=== PATIENT | female | born 1965 | race Caucasian/White ===

== ENCOUNTER 2020-12-22 15:49 | Outpatient (REF) | payer OTHER, SELFPAY ==
--- NOTE | ~2020-12-22 | US_ITS ---
EXAMINATION: US THYROID CLINICAL INFORMATION: Nontoxic multinodular goiter. COMPARISON: Thyroid ultrasound 09/03/2018 and 06/27/2016. TECHNIQUE: Linear transducer grayscale and color Doppler examination with attention to the region of the thyroid. FINDINGS: SIZE: Measurements of the thyroid lobes and nodules are given in sagittal, anteroposterior and transverse dimensions respectively. Right Thyroid Lobe: Surgically absent. Left Thyroid Lobe: 4.0 x 1.8 x 1.9 cm, volume 7.2 mL. Previously 4.2 x 2.0 x 1.9 cm, volume 8.3 mL. Parenchyma: The gland echotexture is heterogeneous. Thyroid vascularity is increased. Isthmus: 0.3 cm in maximum AP dimension. Previously 0.2 cm. There are multiple left nodules. Estimated total number of nodules greater than or equal to 1 cm: 4. Clerical Transcriber nodules are described as follows: 1. Location: Left upper pole. Size: 1.0 x 0.6 x 0.9 cm, volume 0.28 mL. Previously: 0.8 x 0.5 x 0.9 cm, volume 0.19 mL. Nodule characteristics: Composition: Solid (2). Echogenicity: Hypoechoic (2). Shape: Not taller than wide (0). Margins: Smooth (0). Echogenic Foci: None (0). ACR TI-RADS total points: 4 Previous: N/A ACR TI-RADS category: 4 Previous: N/A Significant change in size (>/= 20% in 2 dimensions and minimal increase of 2 mm or 50% or greater increase in volume): Change in features: Change in ACR TI-RADS risk category: N/A 2. Location: Left upper pole. Size: 1.0 x 0.6 x 0.8 cm, volume 0.24 mL. Previously: 0.9 x 0.7 x 0.9 cm, volume 0.30 mL. Nodule characteristics: Composition: Solid (2). Echogenicity: Very hypoechoic (3). Shape: Not taller than wide (0). Margins: Smooth (0). Echogenic Foci: None (0). ACR TI-RADS total points: 5 Previous: N/A ACR TI-RADS category: 4 Previous: N/A Significant change in size (>/= 20% in 2 dimensions and minimal increase of 2 mm or 50% or greater increase in volume): Change in features: Change in ACR TI-RADS risk category: N/A 3. Location: Left mid/posterior. Size: 0.7 x 0.6 x 0.7 cm, volume 0.15 mL. Previously: Not documented, new. Question nodule versus area of gland heterogeneity. Nodule characteristics: Composition: Solid (2). Echogenicity: Isoechoic (1). Shape: Not taller than wide (0). Margins: Smooth (0). Echogenic Foci: None (0). ACR TI-RADS total points: 3 Previous: N/A ACR TI-RADS category: 3 Previous: N/A Significant change in size (>/= 20% in 2 dimensions and minimal increase of 2 mm or 50% or greater increase in volume): Change in features: Change in ACR TI-RADS risk category: N/A 4. Location: Left lower pole. Size: 1.2 x 0.6 x 0.9 cm, volume 0.37 mL. Previously: 1.3 x 0.7 x 0.9 cm, volume 0.43 mL. Nodule characteristics: Composition: Solid (2). Echogenicity: Very hypoechoic (3). Shape: Not taller than wide (0). Margins: Extrathyroidal extension (3). Echogenic Foci: None (0). ACR TI-RADS total points: 8 Previous: N/A ACR TI-RADS category: 5 Previous: N/A Significant change in size (>/= 20% in 2 dimensions and minimal increase of 2 mm or 50% or greater increase in volume): Change in features: Change in ACR TI-RADS risk category: N/A 5. Location: Left lower pole. Size: 1.0 x 0.6 x 0.7 cm, volume 0.24 mL. Previously: Not documented, new. Question nodule versus area of gland heterogeneity. Nodule characteristics: Composition: Solid (2). Echogenicity: Isoechoic (1). Shape: Not taller than wide (0). Margins: Smooth (0). Echogenic Foci: None (0). ACR TI-RADS total points: 3 Previous: N/A ACR TI-RADS category: 3 Previous: N/A Significant change in size (>/= 20% in 2 dimensions and minimal increase of 2 mm or 50% or greater increase in volume): Change in features: Change in ACR TI-RADS risk category: N/A RIGHT THYROIDECTOMY BED: No residual thyroid tissue seen. NODES: No lymphadenopathy is seen in the tissue surrounding the thyroid gland. US/US thyroid IMPRESSION: Heterogeneous hypervascular left lobe with multiple left nodules. There are 2 question newly appreciated nodules versus areas of gland heterogeneity. ACR TI-RADS RECOMMENDATION REFERENCE: Ultrasound-guided fine-needle aspiration, followup ultrasound, no further follow up. * TR1 (0 point) and TR 2 (2 points): No FNA or follow up * TR3 (3 points): FNA if more than or equal to 2.5 cm in maximum dimension, followup ultrasound in 1, 3 and 5 years if 1.5 to 2.4 cm in maximum dimension. * TR4 (4-6 points): FNA if more than or equal to 1.5 cm in maximum dimension, followup ultrasound in 1, 2, 3 and 5 years if 1 to 1.4 cm in maximum dimension. * TR5 (more than or equal to 7 points): FNA if more than or equal to 1 cm in maximum dimension, followup ultrasound every year for 5 years if 0.5 to 0.9 cm in maximum dimension. * TR3, TR4 or TR5 nodules that are below the size threshold for follow up receive no follow up.
== END 2020-12-22 15:50 | disposition home or self-care (01) ==
LOC: HO.HMGCX 15:49
PROVIDERS: PCP Internal Medicine; Visit Provider Internal Medicine Endocrinology, Diabetes & Metabolism
DX: E04.2 Nontoxic multinodular goiter (principal)
CPT/HCPCS: 76536

== ENCOUNTER 2021-11-07 06:15 | Outpatient (REF) | payer OTHER, SELFPAY ==
[2021-11-07 06:33] LABS: MANUAL DIFF FLAG NO
[2021-11-07 07:26] LABS: Basophils Percent Auto 0.9 % (0-2); Eosinophils Absolute Auto 0.1 X10*3/uL (0.0-0.4); Eosinophils Percent Auto 1.8 % (0-4); Hematocrit 41.9 % (37.0-47.0); Imm Gran Abs Auto 0.01 X10*3/uL (0.00-0.03); Imm Gran Pct Auto 0.2 % (0.0-0.4); Lymphocytes Absolute Auto 1.5 X10*3/uL (1.2-4.9); Lymphocytes Percent Auto 33.1 % (20-40); Mean Corpuscular HGB Conc 33.4 g/dl (31.0-35.0); Mean Corpuscular Hemoglobin 31.9 pg (27.0-33.0); Mean Corpuscular Volume 95.4 fL (80.0-98.0); Mean Platelet Volume 8.9 fL (9.4-12.3); Monocytes Absolute Auto 0.5 X10*3/uL (0.1-1.2); Monocytes Percent Auto 10.3 % (2-11); Neutrophils Absolute Auto 2.4 x10*3/uL (2.0-8.3); Neutrophils Percent Auto 53.7 % (45-73); Platelet Count 434 X10*3/uL (160-400); Red Blood Count 4.39 X10*6/uL (4.20-5.50); Red Cell Distribution Width 12.9 % (11.0-16.0); White Blood Count 4.4 X10*3/uL (4.8-10.8)
[2021-11-07 07:50] LABS: Alanine Aminotransferase 18 U/L (0-31); Albumin Level 4.4 g/dL (3.5-5.0); Alkaline Phosphatase 101 U/L (39-117); Anion Gap 17 (12-20); Aspartate Amino Transferase 20 U/L (5-31); Bilirubin Total 0.7 mg/dL (0.0-1.0); Blood Urea Nitrogen 11 mg/dL (9-16); Calcium 9.9 mg/dL (8.4-10.2); Carbon Dioxide 27 mmol/L (22-29); Chloride 102 mmol/L (96-108); Cholesterol 242 mg/dL; Estimated Glomerular Filt Rate > 60; Glucose Random 101 mg/dL (60-115); HDL Cholesterol 78 mg/dL; LDL Cholesterol Calculated 143 mg/dl; Potassium 4.9 mmol/L (3.3-5.1); Sodium 141 mmol/L (135-145); Total Protein 7.8 g/dL (6.5-8.0); Triglycerides 107 mg/dL
[2021-11-07 08:16] LABS: Free T4 (Free Thyroxine) 0.82 ng/dL (0.71-1.85); Thyroid Stimulating Hormone 3.47 uIU/mL (0.32-4.0); Vitamin D 25-OH Total 48.9 ng/mL (>30)
[2021-11-07 08:18] LABS: Folate 19.5 ng/mL (> or = 4.0); Vitamin B12 313 pg/mL (200-900)
== END 2021-11-07 06:16 | disposition home or self-care (01) ==
LOC: HO.LAB 06:15
PROVIDERS: Absent Provider Internal Medicine Endocrinology, Diabetes & Metabolism; PCP Internal Medicine; Visit Provider Internal Medicine
DX: E04.2 Nontoxic multinodular goiter (principal); E78.00 Pure hypercholesterolemia, unspecified; D75.839 Thrombocytosis, unspecified
CPT/HCPCS: 36415; 80053; 80061; 82306; 82607; 82746; 84439; 84443; 85025

== ENCOUNTER 2022-05-09 13:56 | Outpatient (REF) | payer OTHER, SELFPAY ==
[2022-05-09 14:52] LABS: Influenza A PCR NEGATIVE (Negative); Influenza B PCR NEGATIVE (Negative); Resp Syncy Virus RNA Qual PCR NEGATIVE (Negative); SARS COV2 PCR INHOUSE NEGATIVE (Negative)
== END 2022-05-09 13:57 | disposition home or self-care (01) ==
LOC: HO.LNP 13:56
PROVIDERS: Visit Provider Internal Medicine
DX: Z20.822 Contact with and (suspected) exposure to COVID-19 (principal); R09.89 Other specified symptoms and signs involving the circulatory and respiratory systems
CPT/HCPCS: 0241U

== ENCOUNTER 2022-11-08 06:57 | Outpatient (REF) | payer OTHER, SELFPAY ==
[2022-11-08 07:10] LABS: MANUAL DIFF FLAG NO
[2022-11-08 07:40] LABS: Basophils Absolute Auto 0.1 X10*3/uL (0.0-0.2); Eosinophils Absolute Auto 0.2 X10*3/uL (0.0-0.4); Hematocrit 41.3 % (37.0-47.0); Hemoglobin 13.8 g/dl (12.0-16.0); Imm Gran Abs Auto 0.01 X10*3/uL (0.00-0.03); Imm Gran Pct Auto 0.2 % (0.0-0.4); Lymphocytes Absolute Auto 1.8 X10*3/uL (1.2-4.9); Lymphocytes Percent Auto 35.8 % (20-40); Mean Corpuscular HGB Conc 33.4 g/dl (31.0-35.0); Mean Corpuscular Hemoglobin 31.6 pg (27.0-33.0); Mean Corpuscular Volume 94.5 fL (80.0-98.0); Mean Platelet Volume 8.4 fL (9.4-12.3); Monocytes Absolute Auto 0.5 X10*3/uL (0.1-1.2); Monocytes Percent Auto 9.9 % (2-11); Neutrophils Absolute Auto 2.5 x10*3/uL (2.0-8.3); Neutrophils Percent Auto 50.1 % (45-73); Platelet Count 417 X10*3/uL (160-400); Red Blood Count 4.37 X10*6/uL (4.20-5.50); Red Cell Distribution Width 12.4 % (11.0-16.0)
[2022-11-08 08:03] LABS: Alanine Aminotransferase 23 U/L (0-31); Albumin Level 4.3 g/dL (3.5-5.0); Alkaline Phosphatase 105 U/L (39-117); Anion Gap 13 (12-20); Aspartate Amino Transferase 24 U/L (5-31); Bilirubin Total 0.5 mg/dL (0.0-1.0); Blood Urea Nitrogen 11 mg/dL (9-16); Calcium 10.2 mg/dL (8.4-10.2); Carbon Dioxide 28 mmol/L (22-29); Chloride 103 mmol/L (96-108); Cholesterol 217 mg/dL; Estimated Glomerular Filt Rate > 60; Glucose Random 97 mg/dL (60-115); HDL Cholesterol 68 mg/dL; LDL Cholesterol Calculated 127 mg/dl; Potassium 4.4 mmol/L (3.3-5.1); Sodium 140 mmol/L (135-145); Total Protein 7.9 g/dL (6.5-8.0); Triglycerides 113 mg/dL
[2022-11-08 08:25] LABS: Free T4 (Free Thyroxine) 0.85 ng/dL (0.71-1.85); Thyroid Stimulating Hormone 3.62 uIU/mL (0.32-4.0); Vitamin D 25-OH Total 72.4 ng/mL (>30)
[2022-11-08 08:35] LABS: Folate 14.6 ng/mL (> or = 4.0); Vitamin B12 525 pg/mL (200-900)
== END 2022-11-08 06:58 | disposition home or self-care (01) ==
LOC: HO.LAB 06:57
PROVIDERS: PCP Internal Medicine; Visit Provider Internal Medicine
DX: E78.00 Pure hypercholesterolemia, unspecified (principal); E55.9 Vitamin D deficiency, unspecified
CPT/HCPCS: 36415; 80053; 80061; 82306; 82607; 82746; 84439; 84443; 85025

== ENCOUNTER 2022-11-09 17:03 | Emergency (ER) | payer OTHER, SELFPAY ==
--- NOTE | ~2022-11-09 | CT_ITS ---
EXAMINATION: CT KNEE WITHOUT CONTRAST, LEFT CLINICAL INFORMATION: Fracture COMPARISON: Same day radiographs TECHNIQUE: A noncontrast CT of the left knee is performed with sagittal and coronal reformats. This CT examination was performed using dose optimization techniques as appropriate, variously including the following: *Automated exposure control *Adjustment of mA and/or kV according to patient size (this includes techniques or standardized protocols for targeted exams where dose is matched to indication/reason for exam; i.e. extremities or head) *Use of iterative reconstruction technique Dose Length Product: 215 mGycm. FINDINGS: There is a comminuted, impacted fracture involving the lateral tibial plateau most prominent posteriorly where there is up to 8 mm of surface depression, downsloping posteriorly. The fracture line extends along the subchondral bone at the tibiofibular joint. Several fracture lines extend to the tibial spines, a minimally displaced fracture in the coronal plane extending along the articular surface of the medial tibial plateau. This fracture line extends obliquely to the posterior cortex of the metadiaphysis. A portion of the tibial spines anteriorly is slightly retracted, likely by the ACL footprint. There is a large lipohemarthrosis. No fracture of the distal femur or patella is evident. CT/CT knee LT wo IV con IMPRESSION: 1. Comminuted, impacted fracture of the lateral tibial plateau with up to 8 mm of surface depression. Fracture lines cross midline. 2. Minimally displaced fracture of the medial tibial plateau extending to the posterior cortex of the metadiaphysis. 3. Large lipohemarthrosis.
--- NOTE | ~2022-11-09 | XR_ITS ---
EXAMINATION: XR KNEE, LEFT CLINICAL INFORMATION: Fall, pain. COMPARISON: None available. TECHNIQUE: Four views of the left knee. FINDINGS: Comminuted tibial plateau fracture with intra-articular extension. Mild impaction and posterior displacement of some of the fracture fragments. Moderate to large lipo-hemarthrosis. XR/XR knee LT 4V IMPRESSION: Comminuted tibial plateau fracture with intra-articular extension.
[2022-11-09 17:11] VITALS: BP 152/92; BP 160/79; PULSE 85; PULSE 95; RESP 16; TEMP 36.8; O2SAT 95; O2SAT 98; BMI 29.0
[2022-11-09 17:15] VITALS: PULSE 86
--- NOTE | 2022-11-09 17:21 | PC.NURSE ---
pt a&ox3. respirations even and unlabored. pt reports falling off of porch about 6 feet up onto her knees. pt was chasing cat that ran out of her house. the pt is getting her porch worked on. pt reports left knee pain. left knee has visible bruising and swelling. pt is able to bend knee but struggles to bend it back out. pt denies pain in right knee. pt denies loc. pt is not on blood thinners. pt denies n/v and chest pain. vss.
--- NOTE | 2022-11-09 17:36 | ED_ITS ---
HPI - Fall General Chief Complaint: Fall Stated Complaint: FALL OFF PORCH Time Seen by Provider: 11/09/22 17:11 Source: patient, family and EMS Mode of arrival: EMS Limitations: no limitations History of Present Illness HPI Narrative: 57-year-old female came in for evaluation of left knee pain after fell off a 4 ft height porch as the patient jumping of the porch landed in her both feet and her left knee gave out causing her to fall on her left knee, patient is complaining of left knee pain. No headache, no neck pain upper extremities weakness of her tenderness, no back pain, no abdominal pain, no pelvic pain, no hips pain or deformity, no right lower extremities pain or deformity. Only complaint is left knee pain and unable to bear weight the left knee. Related Data Home Medications Medication Instructions Recorded Confirmed cholecalciferol (vitamin D3) 25 25 mcg PO DAILY 05/17/21 05/23/22 mcg (1,000 unit) capsule letrozole 2.5 mg tablet 2.5 mg PO DAILY 05/17/21 05/23/22 loratadine 10 mg tablet 10 mg PO DAILY 05/17/21 05/23/22 multivitamin 1 tab PO DAILY 05/23/22 05/23/22 Allergies Allergy/AdvReac Type Severity Reaction Status Date / Time lactose Allergy Intermediate upset Verified 05/23/22 12:29 stomach Review of Systems Review of Systems: All other systems are reviewed and are negative Constitutional: Reports as per HPI and Reports no additional constitutional complaints Eyes: Reports as per HPI and Reports no additional eye complaints Reports system reviewed and no additional complaints, except as documented Cardiovascular: Reports as per HPI and Reports no additional cardiovascular complaints Respiratory: Reports as per HPI and Reports no additional respiratory complaints Gastrointestinal: Reports as per HPI and Reports no additional gastrointestinal complaints Genitourinary: Reports no additional female genitourinary complaints Musculoskeletal: Reports no additional musculoskeletal complaints Skin/Breast: Reports system reviewed and no additional complaints, except as docu Psychiatric: Reports no additional psychiatric complaints Endocrine: Reports no additional endocrine complaints Hematologic/Lymphatic: Reports no additional hematologic/lymphatic complaints Allergic/Immunologic: Reports no additional allergic/immunologic complaints Reports system reviewed and no additional complaints, except as documented and Reports Abnormal speech present [facility] Past Medical History Medical History Deviated septum History of breast cancer Multinodular goiter Raynaud's disease Surgical History H/O lumpectomy History of thyroidectomy, subtotal Family History Family History Father Heart attack Sister CAD (coronary artery disease) Leukemia Brother Substance abuse Sister Breast cancer Social History Social History Housing: House Alcohol intake: current Alcohol intake frequency: a few times a month Patient Tobacco Use Status: Never used Tobacco Smoked in Last 30 Days: No e-Cigarette/Vaping Use: Never Used Second Hand Smoke Exposure: No Use of substances other than those prescribed or required for medical reasons: No Advance Directives: No Advance Directives Information Provided: Yes Current occupational status: employed Cognitive needs: No Hearing needs: No Vision needs: Yes Physical Exam Vital Signs: Vital Signs: Last Vital Signs Temp 98.3 F 11/09/22 17:11 Pulse 86 11/09/22 17:15 Resp 16 11/09/22 17:11 BP 160/79 H 11/09/22 17:11 Pulse Ox 98 11/09/22 17:11 O2 Del Method Room Air 11/09/22 17:11 BMI result Body Mass Index 29.0 Vital signs have been reviewed as appeared to be correct. Blood pressure normal. Heart rate normal. Respiration rate normal. Temperature normal. Oxygen saturation normal. Appearance: Alert. Oriented X3. No acute distress. Head: Normal external exam. Normocephalic. Atraumatic. No Claudio signs noted. No raccoon eyes noted Eyes: PERRLA. EOMI. Conjunctiva and sclera normal. Eyelids normal. ENT: TM's Normal. Pharynx normal. Uvula midline. Moist mucous membranes. No trismus noted. No drooling noted. No muffled voice noted. Neck: Normal inspection. Neck supple. FROM. No adenopathy. Thyroid Normal. No meningeal signs. No neck mass noted. CVS: Normal heart rate and rhythm. Heart sound normal. No murmurs noted. Pulses normal throughout. Respiratory: No respiratory distress. Painless inspiration. Breath sounds normal. No wheezes/rales/rhonchi noted. Chest nontender. No accessory muscle usage noted or decreased air movement noted. Abdomen: Soft and nontender. Bowel sounds normal in all 4 quadrants. No distention noted. No organomegaly noted. No visible injury noted. Back: No CVA tenderness. Full range of motion noted. Skin: Skin warm and dry. Normal skin color. Normal skin turgor. No rashes/lesions/lacerations noted. Extremities: Left knee exam: Mild diffuse joint swelling with effusion, limited range of motion due to pain, area of ecchymosis on anterior aspect of left knee with no deformity, popliteal artery is intact, left PT/DP is intact. Neuro: Oriented X 3. Cranial nerve exam: II-XII are grossly intact No motor deficit. No sensory deficit. Reflexes normal. Course Course Course Narrative: Left tibial plateau fracture. Knee immobilizer, no weight bearing using crutches, use NSAIDs for pain, follow- up with Orthopedic. Medical Decision Making Differential Diagnosis Differential Diagnoses: The differential diagnosis associated with the presentation includes (Left tibial fracture, knee fracture, knee dislocation, other long bone fracture.) Admission/Observation Consideration of admission/observation: Escalation of care including admission/observation considered Consult Healthcare Provider Management of the patient was discussed with: Optometric Assistant (Ruel Lopez (orthopedic [facility]).) Independent Interpretation I performed an independent interpretation of an: Plain X-Ray (Left tibial plateau fracture.) and CT Scan (1. Comminuted, impacted fracture of the lateral tibial plateau with up to 8 mm of surface depression. Fracture lines cross midline. 2. Minimally displaced fracture of the medial tibial plateau extending to the posterior cortex of the metadiaphysis. 3. Large lipohemarthrosis. ) Radiology Impression Discussion of test interpretation with radiology: I have reviewed the radiologist's reading. ( 1. Comminuted, impacted fracture of the lateral tibial plateau with up to 8 mm of surface depression. Fracture lines cross midline. 2. Minimally displaced fracture of the medial tibial plateau extending to the posterior cortex of the metadiaphysis. 3. Large lipohemarthrosis. ) Discharge Plan Discharge Clinical Impression: Left medial tibial plateau fracture Patient Disposition: Home, Self-Care Additional Instructions: Keep the knee immobilizer at all times. Use ibuprofen 200 mg tablet or/and Tylenol 500 mg tablet every 6 hours if needed for pain. Use the crutches and on try to bear weight on the left leg. Call the orthopedic office and make an appointment. Prescriptions: No Action letrozole 2.5 mg tablet 2.5 mg PO DAILY loratadine 10 mg tablet 10 mg PO DAILY cholecalciferol (vitamin D3) 25 mcg (1,000 unit) capsule 25 mcg PO DAILY multivitamin Tablet 1 tab PO DAILY Referrals: Erwin Chin MD [Physician] - Harley,Capri Somers MD [Primary Care Provider] - Stand Alone Forms: Work/School Release
--- NOTE | 2022-11-09 20:09 | PC.NURSE ---
knee immobilizer applied to left knee, crutches training provided. pt assisted to car for discharge.
--- NOTE | 2022-11-09 20:17 | PC.NURSE ---
pt's shoes found in room after discharge. pt notified, shoes at charge desk.
== END 2022-11-09 20:11 | disposition home or self-care (01) ==
PROVIDERS: Emergency Provider Emergency Medicine; PCP Internal Medicine
DX: S82.142A Displaced bicondylar fracture of left tibia, initial encounter for closed fracture (principal); W19.XXXA Unspecified fall, initial encounter; Y93.9 Activity, unspecified; Y92.9 Unspecified place or not applicable; Y99.9 Unspecified external cause status; M25.562 Pain in left knee
CPT/HCPCS: 73564; 73700; 99284

== ENCOUNTER 2022-11-14 12:42 | Outpatient (AMB) | payer OTHER, SELFPAY ==
--- NOTE | 2022-11-14 12:51 | A.OFFVIS_ITS ---
Intake Intake Visit Reasons: FC- Left medial tibial plateau fracture Intake Note: Jo is a 57 year old female who presents today for a fracture care visit for her left knee. On 11/09/22 she jumped off a porch (approx 4ft) and when landing she had pain in the left knee. Allergies lactose Allergy (Intermediate, Verified 05/23/22 12:29) upset stomach HPI FC- Left medial tibial plateau fracture HPI Details 57-year-old female who presents today to the office for a left medial tibial plateau fracture. The patient was seen in the ER after a fall off the four-foot porch. She states that she was jumping off the porch and landed on both feet. Her left knee started to give out, and she had severe pain. She had a paresthesia initially, which eventually resolved. She had an intermittent episode of sharp pain this morning, which is resolved now. She walks about two miles a day. She is currently taking ibuprofen and Tylenol every six hours. She will wean off the ibuprofen to five days a week. She is not using crutches for ambulation. She denies smoking or illicit drug use. She has a history of chemotherapy treatment and 30-day radiation treatment in 2015?16. She is taking vitamin D and calcium supplements for osteopenia. She is not taking fish oil supplements. She is an avid golfer. [facility] Medical History Deviated septum History of breast cancer Multinodular goiter Raynaud's disease Surgical History H/O lumpectomy History of thyroidectomy, subtotal Family History Father Heart attack Sister CAD (coronary artery disease) Leukemia Brother Substance abuse Sister Breast cancer Social History Housing: House Alcohol intake: current Alcohol intake frequency: a few times a month Patient Tobacco Use Status: Never used Tobacco e-Cigarette/Vaping Use: Never Used Second Hand Smoke Exposure: No Current occupational status: employed Cognitive needs: No Hearing needs: No Vision needs: Yes Physical Exam Const General: no acute distress, alert and awake Orientation/consciousness: patient oriented x3 HEENT Head: Yes normocephalic and Yes atraumatic Eyes EOM: EOMs intact bilaterally Resp Effort & Inspection: normal respiratory effort and able to speak in complete sentences Cardio Jugular venous distension: no JVD Skin General skin exam: turgor normal Rashes: no rashes Neuro General: patient oriented x3 Extrem Other: moderate diffuse swelling eft proximal tibia 2+ DP SILT Psych Appearance: grossly normal Affect: normal affect Attitude: cooperative Results Reviewed Results Reviewed: I personally reviewed relevant radiographs. 11/09/22: CT KNEE WITHOUT CONTRAST, LEFT FINDINGS: There is a comminuted, impacted fracture involving the lateral tibial plateau most prominent posteriorly where there is up to 8 mm of surface depression, downsloping posteriorly. The fracture line extends along the subchondral bone at the tibiofibular joint. Several fracture lines extend to the tibial spines, a minimally displaced fracture in the coronal plane extending along the articular surface of the medial tibial plateau. This fracture line extends obliquely to the posterior cortex of the metadiaphysis. A portion of the tibial spines anteriorly is slightly retracted, likely by the ACL footprint. There is a large lipohemarthrosis. No fracture of the distal femur or patella is evident. IMPRESSION: 1. Comminuted, impacted fracture of the lateral tibial plateau with up to 8 mm of surface depression. Fracture lines cross midline. 2. Minimally displaced fracture of the medial tibial plateau extending to the posterior cortex of the metadiaphysis. 3. Large lipohemarthrosis. 11/09/22: XR KNEE, LEFT FINDINGS: Comminuted tibial plateau fracture with intra-articular extension. Mild impaction and posterior displacement of some of the fracture fragments. Moderate to large lipo-hemarthrosis. IMPRESSION: Comminuted tibial plateau fracture with intra-articular extension. Assessment & Plan Assessment & Plan (1) Left tibial fracture: Comment: [id number] LT wo IV con IMPRESSION: 1. Comminuted, impacted fracture of the lateral tibial plateau with up to 8 mm of surface depression. Fracture lines cross midline. 2. Minimally displaced fracture of the medial tibial plateau extending to the posterior cortex of the metadiaphysis. 3. Large lipohemarthrosis. Code(s): S82.A - Unspecified fracture of shaft of left tibia, initial encounter for closed fracture Plan: This is a 57-year-old woman with a Schatzker V tibial plateau fracture. She is healthy and ambulatory and I recommend open reduction and internal fixation. I discussed with her the details of surgery including the expected duration of nonweightbearing postoperatively as well as the risks of infection, stiffness, need for further surgery and blood clots and bleeding among others. SHeexpressed understanding and would like to proceed forward accordingly. This Plan Scribed for Dr. Erwin Chin by Isaiah Perry, medical assembler, on 11/14/2022. I, Dr. Erwin Chin, have personally reviewed and agree with the information entered by the scribe. Coding Level of Care Code New Pt Level 4 (51484) Diagnoses Left tibial fracture S82.202A
== END 2022-11-14 14:00 | disposition home or self-care (01) ==
PROVIDERS: PCP Internal Medicine; Visit Provider Orthopaedic Surgery
DX: S82.142A Displaced bicondylar fracture of left tibia, initial encounter for closed fracture (principal)
CPT/HCPCS: 99204

== ENCOUNTER → 2022-11-14 12:42 | Outpatient (BNVA) | payer OTHER, SELFPAY | PROVIDERS: PCP Internal Medicine; Visit Provider Orthopaedic Surgery ==

== ENCOUNTER 2022-11-19 | Day surgery (SDC) | payer OTHER, SELFPAY ==
[2022-11-19] VITALS (8 sets, daily range): BP systolic 131–155; BP diastolic 67–85; PULSE 90–114; RESP 15–18; TEMP 36.1–37.8; O2SAT 97–100; BMI 29.0
--- NOTE | ~2022-11-19 | FL_ITS ---
EXAMINATION: XR FLUOROSCOPY WITH IMAGES CLINICAL INFORMATION: Left tibial plateau fracture. COMPARISON: Previous CT and x-ray of the left knee 11/09/2022 TECHNIQUE: Fluoroscopy Supervised By: Dr. Erwin Chin. Fluoroscopy Time: 1.9 minutes. Cumulative Dose: 12.1 mGy. DAP: 0.211 Gycm2. Images: 8. FINDINGS: Fluoroscopy guidance provided for ORIF of medial and lateral tibial plateau fractures with side plate and screws. There is improved alignment. There is a sclerotic density in the lateral tibial plateau likely representing cement. FL/FL guidance in OR IMPRESSION: Fluoroscopy guidance for ORIF of medial and lateral tibial plateau fractures.
--- OUTSIDE RECORDS SUMMARY | 2022-11-19 11:56 | XMS_ITS | Continuity of Care Document ---
Author Name Unknown Organization [facility] Address [address] [place] [address]- Care Team Providers Care Health Type Technician Name Role Phone Po Capri SANCHEZ Primary Care Phys[place] [facility] [place]/22 [facility] [address] [place] [id number] Allergies, Adverse Reactions, Alerts Substance Reaction Severity Status Milk Products diarrhea Active Immunizations Given and Recorded Vaccine Date Status Refusal Reason influenza virus vaccine, inactivated 1 12/24/18 Gi robbin influenza virus vaccine, inactivated 02/02/17 Refugio rded Afluria (oldterm) 12/27/17 Recorded tetanus/diphtheria/pertussis, acel(Tdap) 2 05/15/17 Recorded pneumococcal 23-valent vaccine 02/24/15 Given pneumococcal 13-valent vaccine 12/22/14 Given 1Result Comment: Handled getting vaccine well Gave VIS Published 11/12/2018 2Location History: PCP Medications Claritin 10 mg oral tablet 10 mg, 1, tablet, By Mouth, Daily, Refills 0, Maintenance, 12/24/18 8:38:12 EDT Start Date: 12/24/18 Status: Ordered letrozole 2.5 mg oral tablet 1 tablet, By Mouth, Daily, # 90 tablet, 3 Refills, 11/29/21 15:45:00 EDT, [facility]), 159.9, cm, 11/29/21 12:52:00 EDT, Height, 79.4, kg, 11/29/21 12:52:00 EDT, Dry Weight Start Date: 11/29/21 Status: Ordered One cranial prosthesis. One cranial prosthesis., See Instructions, # 1 each, Refills 0, Tot. 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., 12/13/14 15:56:11, Compound Start Date: 12/13/14 Status: Ordered Vitamin D3 1000 intl units oral capsule 1 capsule = 1,000 International_Units, By Mouth, Daily, 0 Refills, Maintenance, 12/18/17 14:28:26 EDT Start Date: 12/18/17 Status: Ordered Problem List Condition Confirmation Course Effective Dates Status Health St atus Informant Breast mass in female Confirmed Active Carcinoma of lower outer quadrant of left breast Confirmed Active Blood pressure elevated without history of HTN Confirmed Active Axillary mass 1 Confirmed Active Obese class I Confirmed Active 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
--- OUTSIDE RECORDS SUMMARY | 2022-11-19 11:57 | XMS_ITS | Continuity of Care Document ---
Author Name Unknown Organization [facility] ancer Care Address [address] [place] [address]- Care Team Providers Care Culturist Name Role Phone Po Capri SANCHEZ Primary Care Physician En[facility] [place] 09/15/20 - 10/15/20 [facility] Care [address] [place] [id number] Allergies, Adverse Reactions, Alerts Substance Reaction Severity [...] Ordered letrozole 2.5 mg oral tablet 1 tablet = 2.5 mg, By Mouth, Daily, # 90 tablet, 3 Refills, Maintenance, 09/13/20 13:10:00 EDT, [facility], Partial fill upon patient request if the prescription is for a schedule II opioiddrug., 159.9, cm, 06/01/20 12:56:00 EST, Height, 76... Start Date: 09/13/20 Status: Ordered One cranial prosthesis. One cranial [...] Date: 12/18/17 Status: Ordered Problem List Condition Effective Dates Status Health Status Inform ant Breast mass in female(Confirmed) Active Carcinoma of lower outer pepe drant of left breast(Confirmed) Active Blood pressure elevated with out history of HTN(Confirmed) Active Axillary mass(Confirmed) 1 Active Primary breast cancer with m etastasis to movable ipsilateral level 1 or 2 axillary lymph nodes (N1)(Confirmed) Active Raynauds syndrome(Confirmed) Active 1Left axilla Social History Social History Type Response Smoking Status Never smoker; Other: Quit 1983; entered on: 08/17/15 Sex
--- OUTSIDE RECORDS SUMMARY | 2022-11-19 11:57 | XMS_ITS | Continuity of Care Document ---
Author Name Unknown Organization [facility] an[facility] Address [address] [place] [address]- Care Team Providers Care Benefit Specialist Name Role Phone Po Capri SANCHEZ Primary Care Physician [phone] En[facility] [place] Date(s): 11/29/21 - 12/29/21 [facility] Care [address] [place] [id number] Allergies, Adverse Reactions, Alerts Substance Reaction Severity [...] Personnel Name: Capri Souza MD Address: Address: [address] [place] [id number]
--- OUTSIDE RECORDS SUMMARY | 2022-11-19 11:57 | XMS_ITS | Continuity of Care Document ---
Author Name Unknown Organization [facility] Care Address [address] [place] [address]- Care Team Providers Care Roll Clamp Operator Name Role Phone Po Capri SANCHEZ Primary Care Physician [phone] En[facility] [place] Date(s): 07/04/21 - 08/03/21 [facility] Care [address] [place] [id number] Allergies, Adverse Reactions, Alerts Substance Reaction Severity [...] Mouth, Daily, # 90 tablet, 3 Refills, [facility], 159.9, cm, 11/30/20 13:17:00 EDT, Height, 76.7, kg, 11/30/20 13:17:00 EDT, Dry Weight Start Date: 06/15/21 Status: Ordered One cranial prosthesis. One cranial [...]
--- OUTSIDE RECORDS SUMMARY | 2022-11-19 11:57 | XMS_ITS | Continuity of Care Document ---
Author Name Unknown Organization [facility] an[facility] Address [address] [place] [address]- Care Team Providers Care Automotive Parts Manager Name Role Phone Po Capri SANCHEZ Primary Care Physician [place] [facility] [place] - 09/29/20 [facility] Care [address] [place] [id number] Allergies, Adverse Reactions, Alerts Substance [...] tablet, 3 Refills, Maintenance, 09/13/20 13:10:00 EDT, [facility] [facility], Partial fill upon patient request [...]
--- OUTSIDE RECORDS SUMMARY | 2022-11-19 11:57 | XMS_ITS | Continuity of Care Document ---
Author Name Unknown Organization [facility] Care Address [address] [place] [address]- Care Team Providers Care Library Manager Name Role Phone Po Capri SANCHEZ Primary Care Physician [place] [facility] [place] 10/03/20 - 11/02/20 [facility] Care [address] [place] [id number] Allergies, Adverse Reactions, Alerts Substance Reaction Severity [...] tablet, 3 Refills, Maintenance, 09/13/20 13:10:00 EDT, [employer] [facility], Partial fill upon patient request [...]
--- OUTSIDE RECORDS SUMMARY | 2022-11-19 11:57 | XMS_ITS | Continuity of Care Document ---
Author Name Unknown Organization [facility] an[facility] Care Address [address] [place] [address]- Care Team Providers Care Carpenter Helper Hardwood Flooring Name Role Phone Po Capri SANCHEZ Primary Care Physician Encounter [facility] Date(s): 11/16/19 - 12/16/19 [facility] Care [address] [place] [address]- [facility] Allergies, Adverse Reactions, Alerts Substance Reaction Severity [...] 8:38:12 EDT Start Date: 12/24/18 Status: Ordered One cranial prosthesis. One cranial prosthesis., See Instructions, # 1 each, Refills 0, Tot. 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., 12/13/14 15:56:11, Compound Start Date: 12/13/14 Status: Ordered tamoxifen 20 mg oral tablet 1 tablet = 20 mg, By Mouth, Daily, # 90 tablet, 3 Refills, Maintenance, 05/13/19 16:04:00 EST, Tablet, [facility], 159.9, cm, 05/13/19 14:55:00 EST, Height, 76.2, kg, 05/13/19 14:55:00 EST,Dry Weight Start Date: 05/13/19 Status: Ordered Vitamin D3 1000 intl units oral capsule 1 capsule = 1,000 International_Units, By Mouth, Daily, 0 Refills, Maintenance, 12/18/17 14:28:26 EDT Start Date: 12/18/17 Status: Ordered Problem List Condition Effective Dates Status Health Status Inform ant Alcohol abuse(Confirmed) Active Breast mass in female(Confirmed) Active Carcinoma of lower outer pepe drant of left breast(Confirmed) Active Blood pressure elevated with out history of HTN(Confirmed) Active Axillary mass(Confirmed) 1 Active Postmenopausal bleeding(Confirmed) Active 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 Burnham at [facility]. Social History Social History Type Response Smoking Status Never smoker; Other: Quit 1983; entered on: 08/17/15 Sex
--- OUTSIDE RECORDS SUMMARY | 2022-11-19 11:57 | XMS_ITS | Continuity of Care Document ---
Author Name Unknown Organization [facility] an[facility] Address [address] [place] [address]- Care Team Providers Care Ware Carrier Name Role Phone Po Capri SANCHEZ Primary Care Physician [facility] [facility] [place] Date(s): 11/29/20 - 12/29/20 [facility] Care [address] [place] [id number] Allergies, Adverse Reactions, Alerts [...] tablet, 3 Refills, Maintenance, 09/13/20 13:10:00 EDT, [facility] [facility], Partial fill upon patient request [...]
--- OUTSIDE RECORDS SUMMARY | 2022-11-19 11:57 | XMS_ITS | Continuity of Care Document ---
Author Name Unknown Organization [facility] Address [address] [place] [address]- Care Team Providers Care Top Bottom Attaching Machine Operator Name Role Phone Po Capri SANCHEZ Primary Care Physician En[facility] [place] Date(s): 08/30/20 - 09/29/20 [facility] Care [address] [place] [id number] Allergies, Adverse Reactions, Alerts Substance Reaction [...] tablet, 3 Refills, Maintenance, 09/13/20 13:10:00 EDT, [employer] [facility], Partial fill upon patient request [...]
--- OUTSIDE RECORDS SUMMARY | 2022-11-19 11:57 | XMS_ITS | Continuity of Care Document ---
Author Name Unknown Organization [facility] an[facility] Care Address [address] [place] [address]- Care Team Providers Care Head Of Cytogenetics Name Role Phone Po Capri SANCHEZ Primary Care Physician [place] [facility] [place]/08[place]20 - 01/07/21 [facility] [address] [place] [id number] Allergies, Adverse Reactions, Alerts Substance [...] tablet, 3 Refills, Maintenance, 09/13/20 13:10:00 EDT, [employer] [facility], Partial fill upon patient request [...]
--- OUTSIDE RECORDS SUMMARY | 2022-11-19 11:57 | XMS_ITS | Continuity of Care Document ---
Author Name Unknown Organization [facility] an[facility] Care Address [address] [place] [address]- Care Team Providers Care Electrician Helper Name Role Phone Po Capri SANCHEZ Primary Care Physician [phone] En[place] [facility] [place] Date(s): 06/02/20 - 07/02/20 [facility] Care [address] [place] [address]- Allergies, Adverse Reactions, Alerts Substance Reaction Severity [...] Ordered tamoxifen 20 mg oral tablet 1 tablet, By Mouth, Daily, # 90 tablet, 3 Refills, Maintenance, 03/15/20 8:14:00 EST, [facility], 159.9, cm, 02/01/20 8:58:00 EST, Height, 75.5, kg, 02/01/20 8:58:00 EST, Dry Weight Start Date: 03/15/20 Status: Ordered Vitamin D3 1000 intl units [...]
--- OUTSIDE RECORDS SUMMARY | 2022-11-19 11:57 | XMS_ITS | Continuity of Care Document ---
Author Name Unknown Organization [facility] an[facility] Care Address [address] [place] [address]- Care Team Providers Care Screedman Name Role Phone Po Capri SANCHEZ Primary Care Physician [phone] En[place] [facility] [place] Date(s): 05/12/19 - 05/22/19 [facility] Care [address] [place] [address]- [facility] Attending Physician: Selene Llanos Admitting Physician: Selene Llanos Referring Physician: Selene Llanos Allergies, Adverse Reactions, Alerts Substance Reaction Severity [...] 1Left axilla 2Managed by Dr. Burnham at [facility]. Social History Social History Type Response Smoking Status Never smoker; Other: Quit 1983; entered on: 08/17/15 Sex
--- OUTSIDE RECORDS SUMMARY | 2022-11-19 11:57 | XMS_ITS | Continuity of Care Document ---
Author Name Unknown Organization [facility] Care Address [address] [place] [address]- Care Team Providers Care Research Support Specialist Name Role Phone Po Capri SANCHEZ Primary Care Physician [place] [facility] [place] 07/13/20 - 08/12/20 [facility] Care [address] [place] [address]- Allergies, Adverse Reactions, Alerts Substance Reaction Severity [...]
--- OUTSIDE RECORDS SUMMARY | 2022-11-19 11:57 | XMS_ITS | Continuity of Care Document ---
Author Name Unknown Organization [facility] Care Address [address] [place] [address]- Care Team Providers Care Military Education Coordinator Name Role Phone Po Capri SANCHEZ Primary Care Physician [place] [facility] [place]20 - 01/11/21 [facility] Care [address] [place] [address] Allergies, Adverse Reactions, Alerts Substance [...] tablet, 3 Refills, Maintenance, 09/13/20 13:10:00 EDT, [employer] [facility], Partial fill upon patient request [...]
--- OUTSIDE RECORDS SUMMARY | 2022-11-19 11:57 | XMS_ITS | Continuity of Care Document ---
Author Name Unknown Organization [facility] ancer Care Address [address] [place] [address]- Care Team Providers Care Billet Driller Name Role Phone Po Capri SANCHEZ Primary Care Physician [place] [facility] [place] Date(s): 10/02/21 - 11/01/21 [facility] [address] [place] [email or web address] Allergies, Adverse Reactions, Alerts Substance Reaction Severity [...]
--- OUTSIDE RECORDS SUMMARY | 2022-11-19 11:57 | XMS_ITS | Continuity of Care Document ---
Author Name Unknown Organization [facility] ancer Care Address [address] [place] [address]- Care Team Providers Care Methods Study Analyst Name Role Phone Po Capri SANCHEZ Primary Care Physician [phone] Encounter [facility] Date(s): 06/05/20 - 07/05/20 [facility] Care [address] [place] [address]- Allergies, Adverse Reactions, Alerts Substance Reaction Severity [...]
--- OUTSIDE RECORDS SUMMARY | 2022-11-19 11:57 | XMS_ITS | Continuity of Care Document ---
Author Name Unknown Organization [facility] Care Address [address] [place] [address]- Care Team Providers Care Sterile Products Processor Name Role Phone Po Capri SANCHEZ Primary Care Physician Encounter [facility] Date(s): 05/19/20 - 06/18/20 [facility] [address] [place] [address]- Allergies, Adverse Reactions, Alerts Substance Reaction Severity [...]
--- OUTSIDE RECORDS SUMMARY | 2022-11-19 11:57 | XMS_ITS | Continuity of Care Document ---
Author Name Unknown Organization [facility] ancer Care Address [address] [place] [address]- Care Team Providers Care Batch Tank Controller Name Role Phone Po Capri SANCHEZ Primary Care Physician [place] [facility] [place] 10/03/21 - 11/02/21 [facility] [address] [place] [id number] Allergies, Adverse Reactions, Alerts Substance Reaction Severity [...]
--- OUTSIDE RECORDS SUMMARY | 2022-11-19 11:57 | XMS_ITS | Continuity of Care Document ---
Author Name Unknown Organization [facility] ancer Care Address [address] [place] [address]- Care Team Providers Care Printing Pressman Name Role Phone Capri Souza MD Primary Care Physician En[place] [facility] [place] Date(s): 05/29/20 - 08/01/20 [facility] Care [address] [place] [address]- Discharge Disposition: A-D/C Home Attending Physician: Shanell Pelaez MD Admitting Physician: Shanell Pelaez MD Referring Physician: Capri Souza MD Allergies, Adverse Reactions, Alerts Substance Reaction Severity [...] (N1)(Confirmed) Active Raynauds syndrome(Confirmed) Active 1Left axilla Vital Signs Most recent to oldest [Reference Range]: 1 Height 159.9 cm (06/01/20 12:56 PM) Weight 76.1 kg (06/01/20 12:56 PM) Pulse Rate [55-90 bpm] 123 bpm *H* (06/01/20 12:56 PM) Body Mass Index [18.5-24.99] 29.76 *H* (06/01/20 12:56 PM) Blood Pressure [90-138/55-84 mm Hg] 165/ 88mm Hg *H* (06/01/20 12:56 PM) Temperature [96.8-100.4 DegF] 97.5 DegF (06/01/20 12:56 PM) Blood pressure sites Arm, right (06/01/20 12:56 PM) Temperature Route Temporal (06/01/20 12:56 PM) Dry Weight 76.1 kg (06/01/20 12:56 PM) Weight Obtained Via Standing scale (06/01/20 12:56 PM) Dry Weight Obtained Via Standing scale (06/01/20 12:56 PM) Social History Social History Type Response Smoking Status Never smoker; Other: Quit 1983; entered on: 08/17/15 Sex
--- OUTSIDE RECORDS SUMMARY | 2022-11-19 11:57 | XMS_ITS | Continuity of Care Document ---
Author Name Unknown Organization [facility] ancer Care Address [address] [place] [address]- Care Team Providers Care Wharf Tally Clerk Name Role Phone Po Capri SANCHEZ Primary Care Physician En[facility] [place] Date(s): 01/08/22 - 02/07/22 [facility] Care [address] [place] [address] Allergies, Adverse Reactions, Alerts [...] on: 08/17/15 Sex Patient Care team information Care Team Personnel Name: Suni Castillo Position: [facility] Onco RN Member Role: Primary Care Nurse Name: Abigail Bush Position: [facility] Outreach Member Role: Lifetime Consulting Physician Name: Capri Souza MD Position: Reference Physician Member Role: PCP Address: Address: [address] [place] [address]- Care Team Related Persons Name: AGARACHELLEEANN Address: home [address] [place] [address] Name: SALAS JIM Address: home [address] [place] [address]
--- OUTSIDE RECORDS SUMMARY | 2022-11-19 11:57 | XMS_ITS | Continuity of Care Document ---
Author Name Unknown Organization [facility] an[facility] Care Address [address] [place] [address]- Care Team Providers Care Rework Operator Name Role Phone Po Capri SANCHEZ Primary Care Physician [phone] En[place] [facility] [place] Date(s): 05/29/20 - 06/28/20 [facility] Care [address] [place] [address]- Attending Physician: Selene Llanos Admitting Physician: Selene Llanos Referring Physician: AdmSelene menchaca Allergies, Adverse Reactions, Alerts Substance Reaction Severity [...]
--- OUTSIDE RECORDS SUMMARY | 2022-11-19 11:58 | XMS_ITS | Continuity of Care Document ---
Author Name Unknown Organization [facility] [place] [address] [facility] [place] [address]- Care Team Providers Care Protozoology Teacher Name Role Phone Capri Souza MD Primary Care Physician Encounter 10/17/22 - 10/24/22 [facility] [address], [address] [place] [address]- Attending Physician: Shanell Pelaez MD Admitting Physician: Shanell Pelaez MD Referring Physician: Shanell Pelaez MD Allergies, Adverse Reactions, Alerts Substance Reaction Severity Status Milk Products diarrhea Active Immunizations Given and Recorded Vaccine Date Status Refusal Reason influenza virus vaccine, inactivated 12/21/21 Refugio rded influenza virus vaccine, inactivated 01/19/21 Refugio rded influenza virus vaccine, inactivated 12/23/19 Refugio rded influenza virus vaccine, inactivated 1 12/24/18 Gi robbin influenza virus vaccine, inactivated 02/02/17 Refugio rded SARS-CoV-2 mRNA ([id number]) vax 10/25/21 Recorded SARS-CoV-2 (COVID-19) mRNA BNT-162b2 vac 02/23/21 Recorded SARS-CoV-2 (COVID-19) mRNA BNT-162b2 vac 06/25/20 Recorded SARS-CoV-2 (COVID-19) mRNA BNT-162b2 vac 06/04/20 Recorded Afluria (oldterm) 12/27/17 Recorded tetanus/diphtheria/pertussis, acel(Tdap) 2 05/15/17 Recorded pneumococcal 23-valent vaccine 06/15/15 Recorded pneumococcal 23-valent vaccine 02/24/15 Given pneumococcal 13-valent vaccine 12/23/14 Recorded pneumococcal 13-valent vaccine 12/22/14 Given 1Result Comment: [...] Dry Weight Start Date: 11/29/21 Status: Ordered Multivitamin Daily, 0 Refills, Maintenance, 02/19/22 8:17:00 EST, Partial fill upon patient request if the prescription is for a schedule II opioid drug. Start Date: 02/19/22 Status: Ordered One cranial prosthesis. One cranial [...] Effective Dates Status Health St atus Informant ASCUS of cervix with negative high risk HPV Confirmed Active Breast mass in female Confirmed Active Carcinoma of lower outer quadrant of left breast Confirmed Active Blood pressure elevated without history of HTN Confirmed Active Abdominal discomfort in left lower quadrant Confirmed Active Axillary mass 1 Confirmed Active [...] Care Team Personnel Name: Suni Castillo Position: [facility] Onco RN Member Role: Primary Care Nurse Name: Abigail Bush Position: [facility] Staff Therapist Member Role: Lifetime Consulting Physician Name: Capri Souza MD Position: Reference Physician Member Role: PCP Address: Address: [address] [place] [address]- [place] Name: Shanell Pelaez MD Position: [facility] Physician - Oncology Med Service: Hematology & Oncology Member Role: Referring Physician Address: Address: [address] [place] [address] for Cancer [facility] [place] [address]- Care Team Related Persons Name: LEEANN YUNG Address: home [address] [place] [address] Name: SALAS JIM Address: home [address] [place] [address]
--- OUTSIDE RECORDS SUMMARY | 2022-11-19 11:58 | XMS_ITS | Continuity of Care Document ---
Author Name Unknown Organization [facility] ancer Care Address [address] [place] [address]- Care Team Providers Care Nut Blanker Operator Name Role Phone Po Capri SANCHEZ Primary Care Physician En[place] [facility] [place] Date(s): 06/18/21 - 07/18/21 [facility] Care [address] [place] [id number] Allergies, Adverse Reactions, Alerts [...]
--- OUTSIDE RECORDS SUMMARY | 2022-11-19 11:58 | XMS_ITS | Continuity of Care Document ---
Author Name Unknown Organization [facility] Address [address] [place] [address]- Care Team Providers Care Spool Maker Name Role Phone Po Capri SANCHEZ Primary Care Physician [phone] En[facility] [place] Date(s): 02/01/20 - 02/08/20 [facility] [address] [place] [address]- Attending Physician: Michelle Velasco MD Allergies, Adverse Reactions, Alerts Substance Reaction [...] oldest [Reference Range]: 1 Height 159.9 cm (02/01/20 8:58 AM) Weight 75.5 kg (02/01/20 8:58 AM) Body Mass Index [18.5-24.99] 29.53 *H* (02/01/20 8:58 AM) Blood Pressure [90-138/55-84 mm Hg] 140/ 72mm Hg *H* (02/01/20 8:58 AM) Temperature [96.8-100.4 DegF] 97.9 DegF (02/01/20 8:58 AM) Blood pressure sites Arm, left (02/01/20 8:58 AM) Temperature Route Temporal (02/01/20 8:58 AM) Dry Weight 75.5 kg (02/01/20 8:58 AM) Weight Obtained Via Standing scale (02/01/20 8:58 AM) Dry Weight Obtained Via Standing scale (02/01/20 8:58 AM) Social History Social History Type Response Smoking Status Never smoker; Other: Quit 1983; entered on: 08/17/15 Sex
--- OUTSIDE RECORDS SUMMARY | 2022-11-19 11:58 | XMS_ITS | Continuity of Care Document ---
Author Name Unknown Organization [facility] ancer Care Address [address] [place] [address]- Care Team Providers Care Educational Technology Specialist Name Role Phone Po Capri SANCHEZ Primary Care Physician [place] [facility] [place] 07/[place]/20 - 08/24/20 [facility] Care [address] [place] [address]- Allergies, Adverse Reactions, Alerts Substance Reaction Severity Status Milk Products diarrhea Active Immunizations Given and Recorded Vaccine Date Status Refusal Reason influenza virus vaccine, inactivated 1 12/24/18 Gi robbin influenza virus vaccine, inactivated 02/02/17 Refguio rded Afluria (oldterm) 12/27/17 Recorded tetanus/diphtheria/pertussis, acel(Tdap) [...]
--- OUTSIDE RECORDS SUMMARY | 2022-11-19 11:58 | XMS_ITS | Continuity of Care Document ---
Author Name Unknown Organization [facility] ancer Care Address [address] [place] [address]- Care Team Providers Care Senior Accountant Cpa Name Role Phone Po Capri SANCHEZ Primary Care Physician [phone] [place] [facility] [place](s): 08/30/20 - 09/29/20 [facility] Care [address] [place] [id number] Attending Physician: Selene Llanos Admitting Physician: AdmtrSelene Referring Physician: Admtr, Ar8 Allergies, Adverse Reactions, Alerts Substance Reaction Severity [...] tablet, 3 Refills, Maintenance, 09/13/20 13:10:00 EDT, [facility], Partial fill upon patient request [...]
--- OUTSIDE RECORDS SUMMARY | 2022-11-19 11:58 | XMS_ITS | Continuity of Care Document ---
Author Name Unknown Organization [facility] C ancer Care Address [address] [place] [address]- Care Team Providers Care General Doc Name Role Phone Po Capri SANCHEZ Primary Care Physician [place] [facility] [place]29/21 - 12/29/21 [facility] [address] [place] [id number] Allergies, Adverse Reactions, Alerts Substance Reaction [...] Personnel Name: Capri Souza MD Address: Address: [address] [place] [id number]
--- OUTSIDE RECORDS SUMMARY | 2022-11-19 11:58 | XMS_ITS | Continuity of Care Document ---
Author Name Unknown Organization [facility] ancer Care Address [address] [place] [address]- Care Team Providers Care Employee Benefits Specialist Name Role Phone Po Capri SANCHEZ Primary Care Physician Encounter [facility] [place] Date(s): 02/13/21 - 03/15/21 [facility] [address] [place] [id number] Allergies, Adverse Reactions, Alerts Substance Reaction Severity [...] tablet, 3 Refills, Maintenance, 09/13/20 13:10:00 EDT, [id number], Partial fill upon patient request [...]
--- OUTSIDE RECORDS SUMMARY | 2022-11-19 11:58 | XMS_ITS | Continuity of Care Document ---
Author Name Unknown Organization [facility] [place] Address [address] [place] [address]- Care Team Providers Care Psychotherapist Counselor Name Role Phone Capri Souza MD Primary Care Physician [phone] Encounter 10/13/20 - 10/20/20 [facility] [place] [address], [address] [place] [address]- Attending Physician: Cyrus Pelaez MD Admitting Physician: Cyrus Pelaez MD Referring Physician: Cyrus Pelaez MD Allergies, Adverse Reactions, Alerts Substance [...] (N1)(Confirmed) Active Raynauds syndrome(Confirmed) Active 1Left axilla Results Radiology Reports * Exam Date Time Procedure Performing Provider Status 10/13/20 10:47 AM Dexa Bone Density (Axial) Miguel Yuan; Perry (Verified) Notes: (Dexa Bone Density (Axial)) Reason For Exam: post menopausal on AI;Post Menopausal RESULT: DEXA BONE DENSITY (AXIAL) Bone Density Report Name: MIGUEL BONILLA Age: 55 Sex: Female Ethnicity: White Date of : 1965 Indication: POSTMENOPAUSAL. Referring Provider: CYRUS PELAEZ MD Study: Bone densitometry was performed. Exam Date: October 13, 2020 Accession number: [id number] Bone Density: Region BMD T-score Z-score Classification AP Spine (L1-L4) 0.946 -0.9 0.2 Normal Femoral Neck (Left) 0.620 -2.1 -1.0 Osteopenia Total Hip (Left) 0.839 -0.8 -0.1 Normal World Health Organization criteria for BMD impression classify patients as: Normal (T-score at or above -1.0), Osteopenia (T-score between -1.0 and -2.5), or Osteoporosis (T-score at or below -2.5). 10-year Fracture Risk(1): Major Osteoporotic Fracture 8.0% Hip Fracture 1.0% Reported Risk Factors: [place] (), Neck BMD=0.620, BMI=28.3 (1) FRAX(R) Version 3.08. Fracture probability calculated for an untreated patient. Fracture probability may be lower if the patient has received treatment. Clinical Information Provided by Patient: Has used the following medications: Vitamin D, chemo, letrozole, tamoxifen Has the following medical conditions: Cancer, Inflammatory bowel diseases Patient maximum height was 64.5 Onset of menses at age 13 Number of children 0 Impression: The patient has osteopenia as determined by WHO criteria. Reported by: Christopher Juan M.D. on 10/13/2020 11:00:00 AM. Dictated By: Christopher Juan MD Dictated Date/Time: 10/13/20 11:01 a Reviewed By: Christopher Juan MD Signed By: Christopher Juan MD Signed Date/Time: 10/13/20 11:01 am Transcribed By: JERRY Transcribed Date/Time: 10/13/20 11:01 am Social History Social History Type Response Smoking Status Never smoker; Other: Quit 1983; entered on: 08/17/15 Sex
--- OUTSIDE RECORDS SUMMARY | 2022-11-19 11:58 | XMS_ITS | Continuity of Care Document ---
Author Name Unknown Organization [facility] ancer Care Address [address] [place] [address]- Care Team Providers Care Director Private Music Therapy Agency Name Role Phone Po Capri SANCHEZ Primary Care Physician [phone] [facility] Date(s): 05/18/20 - 06/17/20 [facility] [address] [place] [address]- Allergies, Adverse Reactions, Alerts Substance Reaction Severity [...]
--- OUTSIDE RECORDS SUMMARY | 2022-11-19 11:58 | XMS_ITS | Continuity of Care Document ---
Author Name Unknown Organization [facility] C ancer Care Address [address] [place] [address]- Care Team Providers Care Deputy Court Name Role Phone Capri Souza MD Primary Care Physician [place] [facility] [place](s): 11/26/21 - 01/29/22 [facility] Care [address] [place] [id number] Discharge Disposition: A-D/C Home Attending Physician: Shanell [...] Active Raynauds syndrome Confirmed Active 1Left axilla Vital Signs Most recent to oldest [Reference Range]: 1 Height 159.9 cm (11/29/21 12:52 PM) Weight 79.4 kg (11/29/21 12:52 PM) Pulse Rate [55-90 bpm] 106 bpm *H* (11/29/21 12:52 PM) Body Mass Index [18.5-24.99] 31.05 *>HHI* (11/29/21 12:52 PM) Blood Pressure [90-138/55-84 mm Hg] 172/ 99mm Hg *H* (11/29/21 12:52 PM) Temperature [96.8-100.4 DegF] 98.1 DegF (11/29/21 12:52 PM) Blood pressure sites Arm, right (11/29/21 12:52 PM) Temperature Route Oral (11/29/21 12:52 PM) Dry Weight 79.4 kg (11/29/21 12:52 PM) Weight Obtained Via Standing scale (11/29/21 12:52 PM) Dry Weight Obtained Via Standing scale (11/29/21 12:52 PM) Social History Social History Type Response Smoking Status Never smoker; Other: Quit 1983; entered on: 08/17/15 Sex Patient Care team information Personnel Name: Capri Souza MD Address: Address: [address] [place] [id number]
--- OUTSIDE RECORDS SUMMARY | 2022-11-19 11:58 | XMS_ITS | Continuity of Care Document ---
Author Name Unknown Organization [facility] ancer Care Address [address] [place] [address]- Care Team Providers Care Project Hire Name Role Phone Po Capri SANCHEZ Primary Care Physician [phone] [facility]counter [facility] Date(s): 12/30/19 - 01/29/20 [facility] [address] [place] [address]- [facility] Allergies, Adverse Reactions, Alerts Substance Reaction Severity [...] 1Left axilla 2Managed by Dr. Burnham at [facility]. Social History Social History Type Response Smoking Status Never smoker; Other: Quit 1983; entered on: 08/17/15 Sex
--- OUTSIDE RECORDS SUMMARY | 2022-11-19 11:58 | XMS_ITS | Continuity of Care Document ---
Author Name Unknown Organization [facility] Address [address] [place] [address]- Care Team Providers Care Crystal Cutter Name Role Phone Po Capri SANCHEZ Primary Care Physician [phone] Encounter [facility] Date(s): 02/19/22 - 02/26/22 [facility] [address] [place] [address]- Attending Physician: Michelle Velasco MD Allergies, Adverse [...] vaccine, inactivated 02/02/17 Refugio rded SARS-CoV-2 mRNA (ellpbuw-[id number]-[id number]) vax 10/25/21 Recorded SARS-CoV-2 (COVID-19) mRNA BNT-162b2 [...] oldest [Reference Range]: 1 Height 159.9 cm (02/19/22 8:15 AM) Weight 76.8 kg (02/19/22 8:15 AM) Body Mass Index [18.5-24.99 kg/m2] 30.04 kg/m2 *>HHI* (02/19/22 8:15 AM) Blood Pressure [90-138/55-84 mm Hg] 140/ 78mm Hg *H* (02/19/22 8:15 AM) Blood pressure sites Arm, left (02/19/22 8:15 AM) Dry Weight 76.8 kg (02/19/22 8:15 AM) Weight Obtained Via Patient/family state d (02/19/22 8:15 AM) Dry Weight Obtained Via Patient/family s tated (02/19/22 8:15 AM) Social History Social History Type Response Smoking Status Never smoker; Other: Quit 1983; entered on: 08/17/15 Sex Note * Shirley Abrams MA: PERFORM, SIGN, VERIFY Event Display: Patient Education/Instruction Authored Date: [id number] [facility] Clinical Summary Name MIGUEL BONILLA Age 57 Years 1965 PCP Po Capri SANCHEZ PCP Visit Date 02/19/2022 07:50:00 Additional Instructions: Scheduled Appointments?? Future Appointments ?[facility]RAD ?[address]??[place],??[place],??[address] ?Phone:??[phone]?Fax:??-- ?Appt. Date:??06/07/2022?2:00 PM ?Scheduled Provider:??[facility] 3D Mammo Rm 2 Follow-Up Instructions ?? Diagnosis Malignant neoplasm of unspecified site of unspecified female breast; Malignant neoplasm of unspecified site of unspecified female breast; Encounter for gynecological examination (general) (routine) without abnormal findings; Elevated blood-pressure reading, without diagnosis of hypertension; Atypical squamous cells of undetermined significance on cytologic smear of cervix (ASC-US) Medications: Please continue your medications until treatment is completed or stopped by your provider. Discuss any questions related to medications with your provider. Medications to Continue with No Changes These medications were not printed or sent to your pharmacy Cholecalciferol (Vitamin D3 1000 intl units oral capsule) 1 capsule Oral Daily. 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 Refills: 0. Next Dose: Letrozole (letrozole 2.5 mg oral tablet) 1 tab(s) Oral Daily. Refills: 3. Next Dose: Loratadine (Claritin 10 mg oral tablet) 1 tab(s) Oral Daily. Next Dose: Multivitamin Daily. Next Dose: Allergy Info:?? Milk Products Medications Given This Visit Future Orders ?No future orders Vital Signs Height 159.9 cm Weight 76.8 kg BMI 30.04 kg/m2 Blood Pressure 140 mm Hg/78 mm Hg Temperature Pulse Rate Respiratory Rate 02 Sat Mode of Delivery / You can now view a summary of your hospital visit from the comfort of your home through a free online portal called Raptr. Raptr is a website that allows you to securely view your medical information including discharge summary, medications and follow-up visits. ??You can alsosend a secure electronic message to your doctor???s office to request appointments, renew medications or just ask a question. You can enroll at [email or web address] or register during your next office visit. Disclaimer:?? The information provided is of a general nature and is intended to be used in conjunction with the recommendations and advice of your health care practitioner. ??Every effort has been made to ensure that the information provided is accurate and complete at the time it is provided to you however, as your needs change, or, as new ??information becomes available, different or additional instructions may be required. If you have questions, please consult with your primary care provider or pharmacist, as appropriate. ??This information is not intended to serve as substitution for assessment and evaluation by a qualified health care provider. If you do not have a primary care provider, you may find a [facility] provider by calling [facility] at [phone]. For information about the plan of care including goals and instructions for your diagnosis, please see the patient education orders section of this document. Patient Education Materials?? The content of this educational material or handout may have been modified, supplemented, or adapted from its original content and format to support your individualized medical care. Please follow instructions discussed with your provider during this visit as well as any education documents you were given today. Patient Care team information Care Team Personnel Name: Suni Castillo Position: [facility] Onco RN Member Role: Primary Care Nurse Name: Abigail Bush Position: [facility] Outreach Member Role: Lifetime Consulting Physician Name: Capri Souza MD Position: Reference Physician Member Role: PCP Address: Address: [address] [place] [address]- Care Team Related Persons Name: AGA LEEANN Address: [address] [place] [address] Name: SALAS JMI Address: [address] [place] [address]
--- OUTSIDE RECORDS SUMMARY | 2022-11-19 11:58 | XMS_ITS | Continuity of Care Document ---
Author Name Unknown Organization [facility] C ancer Care Address [address] [place] [address]- Care Team Providers Care Printed Circuit Boards Pinner Name Role Phone Capri Souza MD Primary Care Physician [place] [facility] [place](s): 08/30/20 - 01/30/21 [facility] [address] [place] [address] Discharge Disposition: A-D/C Home Attending Physician: Shanell [...] oldest [Reference Range]: 1 Height 159.9 cm (11/30/20 1:17 PM) Weight 76.7 kg (11/30/20 1:17 PM) Pulse Rate [55-90 bpm] 110 bpm *H* (11/30/20 1:17 PM) Body Mass Index [18.5-24.99] 30 *>HHI* (11/30/20 1:17 PM) Blood Pressure [90-138/55-84 mm Hg] 146/ 86mm Hg *H* (11/30/20 1:17 PM) Temperature [96.8-100.4 DegF] 98.7 DegF (11/30/20 1:17 PM) Blood pressure sites Arm, right (11/30/20 1:17 PM) Temperature Route Temporal (11/30/20 1:17 PM) Dry Weight 76.7 kg (11/30/20 1:17 PM) Weight Obtained Via Standing scale (11/30/20 1:17 PM) Dry Weight Obtained Via Standing scale (11/30/20 1:17 PM) Social History Social History Type Response Smoking Status Never smoker; Other: Quit 1983; entered on: 08/17/15 Sex
--- OUTSIDE RECORDS SUMMARY | 2022-11-19 11:58 | XMS_ITS | Continuity of Care Document ---
Author Name Unknown Organization 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
--- OUTSIDE RECORDS SUMMARY | 2022-11-19 11:58 | XMS_ITS | Continuity of Care Document ---
Author Name Unknown Organization [facility] ancer Care Address [address] [place] [address]- Care Team Providers Care Gas Welding Machine Operator Name Role Phone Po Capri SANCHEZ Primary Care Physician [phone] [place] [facility] [place](s): 06/07/20 - 07/07/20 [facility] Care [address] [place] [address]- Allergies, Adverse Reactions, Alerts Substance Reaction Severity [...]
--- OUTSIDE RECORDS SUMMARY | 2022-11-19 11:58 | XMS_ITS | Continuity of Care Document ---
Author Name Unknown Organization [facility] Address [address] [place] [address]- Care Team Providers Care License And Permit Specialist Name Role Phone Po Capri SANCHEZ Primary Care Physician En[facility] Date(s): 02/19/22 - 03/21/22 [facility] [address] [place] [address]- Attending Physician: Admtr, Ar8 Admitting Physician: Admtr, Ar8 Referring Physician: Admtr, Ar8 Allergies, Adverse Reactions, Alerts Substance Reaction Severity Status Milk Products diarrhea Active Immunizations Given and Recorded Vaccine Date Status Refusal Reason influenza virus vaccine, inactivated 12/21/21 Refugio rded influenza virus vaccine, inactivated 01/19/21 Refugio rded influenza virus vaccine, inactivated 12/23/19 Refugio rded influenza virus vaccine, inactivated 1 12/24/18 Gi robbin influenza virus vaccine, inactivated 02/02/17 Refugio rded SARS-CoV-2 mRNA ([id number]) vax 10/25/21 Recorded SARS-CoV-2 (COVID-19) mRNA BNT-162b2 [...] 1983; entered on: 08/17/15 Sex Note * Event Display: Non Lab Results Authored Date: [id number] * Event Display: Non Lab Results Authored Date: [id number] * Event Display: Non [facility] Radiology Results Authored Date: * Event Display: Non [facility] Radiology Results Authored Date: * Event Display: Non [facility] Lab Results Authored Date: * Event Display: Non [facility] Radiology Results Authored Date: Patient Care team information Care Team Personnel Name: Suin Castillo Position: [facility] Onco RN Member Role: Primary Care Nurse Name: Abigail Bush Position: [facility] Outreach Member Role: Lifetime Consulting Physician Name: Capri Souza MD Position: Reference Physician Member Role: PCP Address: Address: [address] [place] [address]- Care Team Related Persons Name: LEEANN YUNG Address: home [address] [place] [address] Name: SALAS JIM Address: home [address] [place] [address]
--- OUTSIDE RECORDS SUMMARY | 2022-11-19 11:58 | XMS_ITS | Continuity of Care Document ---
Author Name Unknown Organization [facility] ancer Care Address [address] [place] [address]- Care Team Providers Care Community Outreach Coordinator Name Role Phone Po Capri SANCHEZ Primary Care Physician [place] [facility] [place] Date(s): 11/30/20 - 12/30/20 [facility] Care [address] [place] [id number] Allergies, Adverse Reactions, Alerts Substance Reaction Severity [...] tablet, 3 Refills, Maintenance, 09/13/20 13:10:00 EDT, [facility], Partial fill upon patient request [...]
--- OUTSIDE RECORDS SUMMARY | 2022-11-19 11:58 | XMS_ITS | Continuity of Care Document ---
Author Name Unknown Organization [facility] ter Address [address] [place] [address]- Care Team Providers Care Switching Operator Name Role Phone Capri Souza MD Primary Care Physician [facility] Date(s): 01/19/20 - 06/17/[address] [address] Attending Physician: Shanell Pelaez MD Admitting Physician: [...]
--- OUTSIDE RECORDS SUMMARY | 2022-11-19 11:58 | XMS_ITS | Continuity of Care Document ---
Author Name Unknown Organization [facility] ancer Care Address [address] [place] [address]- Care Team Providers Care Manager Interventional Name Role Phone Po Capri SANCHEZ Primary Care Physician Encounter [facility] [place] Date(s): 11/10/19 - 12/10/19 [facility] [address] [place] [address]- [facility] Attending Physician: Selene Llanos Admitting Physician: Selene [...] 1Left axilla 2Managed by Dr. Burnham at [facility]. Social History Social History Type Response Smoking Status Never smoker; Other: Quit 1983; entered on: 08/17/15 Sex
--- OUTSIDE RECORDS SUMMARY | 2022-11-19 11:58 | XMS_ITS | Continuity of Care Document ---
Author Name Unknown Organization [facility] C ancer Care Address [address] [place] [address]- Care Team Providers Care Housing Project Manager Name Role Phone Capri Souza MD Primary Care Physician [id number] Date(s): 05/12/19 - 07/13/19 [facility] Care [address] [place] [address]- [facility] Discharge Disposition: A-D/C Home Attending Physician: Shanell [...] 1Left axilla 2Managed by Dr. Burnham at [facility]. Vital Signs Most recent to oldest [Reference Range]: 1 Height 159.9 cm (05/13/19 2:55 PM) Weight 76.2 kg (05/13/19 2:55 PM) Pulse Rate [55-90 bpm] 112 bpm *H* (05/13/19 2:55 PM) Body Mass Index [18.5-24.99] 29.8 *H* (05/13/19 2:55 PM) Blood Pressure [90-138/55-84 mm Hg] 164/ 89mm Hg *H* (05/13/19 2:55 PM) Temperature [96.8-100.4 DegF] 98.4 DegF (05/13/19 2:55 PM) Blood pressure sites Arm, right (05/13/19 2:55 PM) Temperature Route Tympanic (05/13/19 2:55 PM) Dry Weight 76.2 kg (05/13/19 2:55 PM) Weight Obtained Via Standing scale (05/13/19 2:55 PM) Dry Weight Obtained Via Standing scale (05/13/19 2:55 PM) Social History Social History Type Response Smoking Status Never smoker; Other: Quit 1983; entered on: 08/17/15 Sex
--- OUTSIDE RECORDS SUMMARY | 2022-11-19 11:58 | XMS_ITS | Continuity of Care Document ---
Author Name Unknown Organization [facility] ancer Care Address [address] [place] [address]- Care Team Providers Care Retirement Administrator Name Role Phone Po Capri SANCHEZ Primary Care Physician [phone] [facility]counter [facility] Date(s): 06/05/20 - 07/05/20 [facility] Care [address] [place] [address]- Allergies, Adverse Reactions, Alerts Substance Reaction Severity [...]
--- OUTSIDE RECORDS SUMMARY | 2022-11-19 11:58 | XMS_ITS | Continuity of Care Document ---
Author Name Unknown Organization [facility] C ancer Care Address [address] [place] [address]- Care Team Providers Care Automobile Body Repair Chief Name Role Phone Po Capri SANCHEZ Primary Care Physician [phone] Encounter [facility] [place] Date(s): 11/26/21 - 12/26/21 [facility] Care [address] [place] [address] Attending Physician: Selene Llanos Admitting Physician: AdmSelene menchaca Referring Physician: Admtr, ArNelly Allergies, Adverse Reactions, Alerts Substance Reaction Severity [...] Personnel Name: Capri Souza MD Address: Address: [address] [place], [place] [address], [place] [address]
--- OUTSIDE RECORDS SUMMARY | 2022-11-19 11:58 | XMS_ITS | Continuity of Care Document ---
Author Name Unknown Organization [facility] ancer Care Address [address] [place] [address]- Care Team Providers Care Master Welder Name Role Phone Po Capri SANCHEZ Primary Care Physician [place] [facility] [place](s): 06/18/21 - 07/18/21 [facility] Care [address] [place] [address] Allergies, Adverse Reactions, Alerts [...]
--- OUTSIDE RECORDS SUMMARY | 2022-11-19 11:58 | XMS_ITS | Continuity of Care Document ---
Author Name Unknown Organization [facility] Address [address] [place] [address]- Care Team Providers Care Bottom Polisher Name Role Phone Po Capri SANCHEZ Primary Care Physician Encounter [facility] [place] Date(s): 08/21/21 - 09/20/21 [facility] [address] [place] [address]- Allergies, Adverse Reactions, Alerts Substance Reaction Severity [...]
--- OUTSIDE RECORDS SUMMARY | 2022-11-19 11:58 | XMS_ITS | Continuity of Care Document ---
Author Name Unknown Organization [facility] ancer Care Address [address] [place] [address]- Care Team Providers Care Pcmh Specialist Name Role Phone Po Capri SANCHEZ Primary Care Physician Encounter [facility] [place] Date(s): 01/18/21 - 02/17/21 [facility] Care [address] [place] [address] Allergies, Adverse Reactions, [...] tablet, 3 Refills, Maintenance, 09/13/20 13:10:00 EDT, [facility] [facility], Partial fill upon patient request [...]
--- OUTSIDE RECORDS SUMMARY | 2022-11-19 11:58 | XMS_ITS | Continuity of Care Document ---
Author Name Unknown Organization [facility] Address [address] [place] [address]- Care Team Providers Care Glass Forming Crew Member Name Role Phone Po Capri SANCHEZ Primary Care Physician Encounter [facility] [place] Date(s): 11/29/21 - 12/29/21 [facility] [address] [place] [id number] Allergies, Adverse Reactions, Alerts Substance Reaction [...] Personnel Name: Capri Souza MD Address: Address: [address] [place] [id number]
--- OUTSIDE RECORDS SUMMARY | 2022-11-19 11:58 | XMS_ITS | Continuity of Care Document ---
Author Name Unknown Organization [facility] Address [address] [place] [id number]- Care Team Providers Care Silver Solderer Name Role Phone Po Capri SANCHEZ Primary Care Physician [phone] Encounter [facility] [place] Date(s): 07/25/20 - 08/24/20 [facility] [address] [place] [phone]- Allergies, Adverse Reactions, Alerts Substance Reaction Severity [...]
--- NOTE | 2022-11-19 12:55 | PHA.MEDREC ---
Pharmacy Consult ? Medication Reconciliation Pharmacy has completed the medication reconciliation. Spoke to Peg Mejias
[2022-11-19] MEDS: Lactated Ringers 1,000 ML 50 ML IVCONT (13:22)
--- NOTE | 2022-11-19 14:21 | HO.ANESPROP2 ---
HPI - Anesthesia Eval Consult details Narrative: 57 F for left Tibia ORIF PMFSH Active Problems Active Problems: All Active Problems (Updated 11/11/22 @ 15:48 by Capri Souza MD) Left tibial fracture (Acute) Colon cancer screening (Acute) Respiratory tract congestion with cough (Acute) Basal cell carcinoma (Acute) Macrocytosis (Acute) Thrombocytosis (Acute) Hypercholesterolemia (Acute) Allergy (Acute) Peripheral vascular disease (Acute) Blood pressure elevated without history of HTN (Acute) History of breast cancer (Acute) Multinodular goiter (Acute) Annual physical exam (Acute) Past Medical History Medical History Deviated septum History of breast cancer Multinodular goiter Raynaud's disease Family History Family History Father Heart attack Sister CAD (coronary artery disease) Leukemia Brother Substance abuse Sister Breast cancer Family history of problems with anesthesia: No Surgical History Surgical History H/O lumpectomy History of thyroidectomy, subtotal History of Problems with Anesthesia: No Social History Social History Housing: House Alcohol intake: current Alcohol intake frequency: a few times a month Patient Tobacco Use Status: Never used Tobacco e-Cigarette/Vaping Use: Never Used Second Hand Smoke Exposure: No Use of substances other than those prescribed or required for medical reasons: No Are you DNR?: No Advance Directives: No Advance Directives Information Provided: Yes Current occupational status: employed Cognitive needs: No Hearing needs: No Vision needs: Yes Meds Allergies Allergy/AdvReac Type Severity Reaction Status Date / Time lactose Allergy Intermediate upset Verified 05/23/22 12:29 stomach Active Medications: Current Medications Lactated Ringer's (Lr) 1,000 mls @ 50 mls/hr IVCONT .Q20H YNES Last Admin: 11/19/22 13:22 Dose: 50 mls/hr Home Medications Medication Instructions Recorded Confirmed Last Taken Type cholecalciferol (vitamin D3) 25 25 mcg PO DAILY 05/17/21 11/19/22 11/19/22 History mcg (1,000 unit) capsule letrozole 2.5 mg tablet 2.5 mg PO DAILY 05/17/21 11/19/22 11/19/22 History loratadine 10 mg tablet 10 mg PO DAILY 05/17/21 11/19/22 11/19/22 History multivitamin 1 tab PO DAILY 05/23/22 11/19/22 11/19/22 History Exam Exam Date and Time: November 19, 2022 1421 Height,Weight and Vital Signs: Height 5 ft 4 in Weight 76.657 kg Last Vital Signs Temp 100.1 F 11/19/22 12:13 Pulse 114 H 11/19/22 12:13 Resp 18 11/19/22 12:13 BP 131/85 11/19/22 12:13 Pulse Ox 97 11/19/22 12:13 O2 Del Method Room Air 11/19/22 12:13 Airway Mallampati Class: III Neck ROM: Full Loose/Missing/Broken Teeth: Yes Assessment and Plan Assessment Anesthesia Assessment: Anesthesia Plan Discussed and Chart Reviewed Final Anesthetic Review Family History of Problems with Anesthesia: No History of Problems with Anesthesia: No NPO: Yes ASA Class: III Final Preanesthetic Review: Meds/Allgs Chart Reviewed, Consent Obtained/Reviewed and Anes Risks/Benef Reviewed Patient Risk: Intermediate Procedure Risk: Intermediate Anesthetic Plan Anesthetic Plan: GA Disposition: Standard PACU
--- NOTE | 2022-11-19 14:58 | MHC.SHP ---
Pre-Procedural Eval Section A Date of Service: 11/19/22 The patient is an INPATIENT: No Changes since office visit: No Cold of Flu in the past 2 weeks, No New Medical Problems, No Changes in Medication and No Patient answered all questions The History & Physical has been completed within 30 days and I have reviewed it.: Yes Section B Chief Complaint: s/p left tibial plateau orif Allergies: Allergies Allergy/AdvReac Type Severity Reaction Status Date / Time lactose Allergy Intermediate upset Verified 05/23/22 12:29 stomach Plan I have reviewed the history and physical and performed a pertinent physical examination on my patient. No changes have occurred unless specified. Time Spent With Patient Time: Total time managing care of this patient today ____ minutes.
--- NOTE | 2022-11-19 18:08 | PM.OP ---
Brief Operative Note Date of Service: 11/19/22 Pre-op diagnosis: Left tibial plateau schatzer 4/5 Post-op diagnosis: same Procedure: ORIF left tibial plateau Implants: Jose Luis medial and lateral locking plates Hydroset 5 ml Surgeon: Erwin Chin MD Anesthesia: GETA Was an Clock And Watch Assembler used for this Procedure?: Yes Clock And Watch Assembler: Jackie Charles Estimated blood loss (mL): 200 Tourniquet time (min): 120 IV fluids (mL): 1,000 Pathology: none sent Condition: stable Disposition: PACU
[2022-11-19] MEDS: 0.9 % Sodium Chloride Flush 3 ML SYRINGE IVFLUSH (19:05)
[2022-11-19] MEDS: Lactated Ringers 1,000 ML 100 ML IVCONT (19:05)
[2022-11-19] MEDS: Docusate Sodium 100 MG CAPSULE PO (21:04)
[2022-11-19] MEDS: ceFAZolin Sodium/Dextrose,Iso 2 GM/50 ML PIGGYBACK IV (21:04)
[2022-11-19] MEDS: oxyCODONE HCl ER 10 MG TAB.ER.12H PO (21:04)
--- NOTE | 2022-11-19 21:14 | PM.EVENT ---
Event Note Date of Service: 11/19/22 Event Note: 57-year-old female with history of breast cancer on letrozole and Raynaud's disease admitted to Orthopedic surgery for management of left tibial fracture with consult placed hospitalist service for medical management. She is postop day 0. Vitals are stable though she does remain on 2 L supplemental O2 postoperatively. She has been using incentive spirometry with good lung sounds throughout. No labs during this admission but reviewed hematology and chemistry studies from 11/08 which are unremarkable. She does not smoke and denies any illicit drug use or marijuana use. She drinks alcohol occasionally. She has no complaints at this time. Thank you for allowing me to participate in this consult. Signing off at this time. Please do not hesitate to call for further questions. Time Spent With Patient Time: Total time managing care of this patient today ____ minutes.
[2022-11-19] MEDS: Ketorolac Tromethamine 15 MG/ML VIAL IVPUSH (23:34)
[2022-11-19] MEDS: Acetaminophen 1,000 MG/100 ML PIGGYBACK 400 MG IV (23:34)
[2022-11-20 03:49] VITALS: BP 132/65; PULSE 82; RESP 19; TEMP 36.3; O2SAT 99
[2022-11-20] MEDS: Lactated Ringers 1,000 ML 100 ML IVCONT ×3 (04:30→23:39)
[2022-11-20 05:44] LABS: MANUAL DIFF FLAG NO
[2022-11-20 05:52] LABS: Basophils Percent Auto 0.3 % (0-2); Eosinophils Percent Auto 0.1 % (0-4); Hematocrit 32.2 % (37.0-47.0); Hemoglobin 10.6 g/dl (12.0-16.0); Imm Gran Abs Auto 0.06 X10*3/uL (0.00-0.03); Imm Gran Pct Auto 0.6 % (0.0-0.4); Lymphocytes Absolute Auto 1.4 X10*3/uL (1.2-4.9); Lymphocytes Percent Auto 14.9 % (20-40); Mean Corpuscular HGB Conc 32.9 g/dl (31.0-35.0); Mean Corpuscular Hemoglobin 32.1 pg (27.0-33.0); Mean Corpuscular Volume 97.6 fL (80.0-98.0); Mean Platelet Volume 8.1 fL (9.4-12.3); Monocytes Percent Auto 10.7 % (2-11); Neutrophils Absolute Auto 7.1 x10*3/uL (2.0-8.3); Neutrophils Percent Auto 73.4 % (45-73); Platelet Count 385 X10*3/uL (160-400); Red Cell Distribution Width 12.6 % (11.0-16.0); White Blood Count 9.7 X10*3/uL (4.8-10.8)
[2022-11-20 06:03] LABS: Anion Gap 13 (12-20); Blood Urea Nitrogen 11 mg/dL (9-16); Calcium 9.4 mg/dL (8.4-10.2); Carbon Dioxide 26 mmol/L (22-29); Chloride 103 mmol/L (96-108); Creatinine Clr Calc Pharmacy 88.8; Estimated Glomerular Filt Rate > 60; Glucose Fasting 109 mg/dL (60-99); Potassium 4.4 mmol/L (3.3-5.1); Sodium 138 mmol/L (135-145)
[2022-11-20] MEDS: Acetaminophen 1,000 MG/100 ML PIGGYBACK 400 MG IV ×3 (06:09→17:20)
[2022-11-20] MEDS: Ketorolac Tromethamine 15 MG/ML VIAL IVPUSH (06:09)
[2022-11-20 06:52] VITALS: BP 129/60; PULSE 89; RESP 16; TEMP 36.6; O2SAT 98
--- NOTE | 2022-11-20 07:16 | PM.PNORT ---
Subjective Subjective Date of Service: 11/20/22 Interval history: POD1 s/p left tibial plateau ORIF. Patient is resting in bed. No overnight events. No additional complaints. Pain is managed. Physical Exam Vital Signs: Vital Signs: Last Vital Signs Temp 98 F 11/20/22 06:52 Pulse 89 11/20/22 06:52 Resp 16 11/20/22 06:52 BP 129/60 11/20/22 06:52 Pulse Ox 98 11/20/22 06:52 O2 Del Method Room Air 11/20/22 06:52 O2 Flow Rate 2 11/20/22 03:49 BMI result Body Mass Index 29.0 Const: General: cooperative, healthy appearing and no acute distress Resp: Effort & Inspection: normal respiratory effort and able to speak in complete sentences Cardio: Rate: regular rate Peripheral pulses: Peripheral pulses 2+ throughout GI: Palpation (GI): Soft to palpation Skin: Lesions: no lesions Rashes: no rashes Extrem: Other: LLE Aquacel bandages intact. Clean. Dry. Able to dorsi/plantar flex. Pedal pulse intact. Reported slight deminished sensation and tingling in the saphenous nerve distribution. Procedures Date of Service Date of Service: 11/20/22 Progress Note: A&P Assessment and plan (1) Left tibial fracture: Status: Acute Plan Continue pain mgmnt Begin Lovenox for dvt ppx begin PT for LLE tibial plateau ORIF - NWB Dispo planning-Pending PT eval, pain mgmnt Time Spent With Patient Time: Total time managing care of this patient today ____ minutes. Quality Stroke Does the patient have a stroke diagnosis?: No VTE Prior VTE?: No VTE Risk Level:: Medical - moderate - high VTE Device Contraindication: N/A - Device Ordered VTE Drug Contraindication: N/A - Med Ordered
--- NOTE | 2022-11-20 08:30 | P.PNIM_ITS ---
Subjective Subjective Date of Service: 11/20/22 Review of Systems Follow-up consultation for left tibial plateau fracture and repair Reports some numbness to left foot Physical Exam Vital Signs: Vital Signs: Last Vital Signs Temp 98 F 11/20/22 06:52 Pulse 89 11/20/22 06:52 Resp 16 11/20/22 06:52 BP 129/60 11/20/22 06:52 Pulse Ox 98 11/20/22 06:52 O2 Del Method Room Air 11/20/22 06:52 O2 Flow Rate 2 11/20/22 03:49 BMI result Body Mass Index 29.0 Appearing in no acute distress lung sounds are clear to auscultation heart regular rate rhythm, clear S1, S2 positive bowel sounds, abdomen is soft, nontender neuro patient is alert x3, no focal deficits Surgical dressing intact to left lower extremity Objective Data Active Medications Docusate Sodium (Docusate Sodium 100 Mg Capsule) 100 mg PO BID [facility] Last Admin: 11/19/22 21:04 Dose: 100 mg Documented By: EJ Enoxaparin Sodium (Enoxaparin Sodium 40 Mg/0.4 Ml Syringe) 40 mg SUBCUT Q24H [facility] Hydromorphone HCl (Hydromorphone Hcl 0.5 Mg/0.5 Ml Syringe) 0.25 mg IVPUSH Q5M PRN; Protocol PRN Reason: Pain, Severe (Pain Scale 7-10) Hydromorphone HCl (Hydromorphone Hcl 0.5 Mg/0.5 Ml Syringe) 0.5 mg IVPUSH Q3H PRN; Protocol PRN Reason: Pain, Severe (Pain Scale 7-10) Promethazine HCl 6.25 mg/ (Sodium Chloride) 50.25 mls @ 201 mls/hr IV ONCE PRN PRN Reason: Nausea and Vomiting Lactated Ringer's (Lr) 1,000 mls @ 100 mls/hr IVCONT .Q10H [facility] Last Admin: 11/20/22 04:30 Dose: 100 mls/hr Documented By: EJ Acetaminophen (Ofirmev) 1,000 mg in 100 mls @ 400 mls/hr IV Q6H [facility] Stop: 11/20/22 18:14 Last Infusion: 11/20/22 06:29 Dose: 0 mls/hr Documented By: EJ Ketorolac Tromethamine (Ketorolac Tromethamine 15 Mg/Ml Vial) 15 mg IVPUSH Q6H [facility] Stop: 11/25/22 05:59 Last Admin: 11/20/22 06:09 Dose: 15 mg Documented By: EJ Letrozole (Letrozole 2.5 Mg Tablet) 2.5 mg PO DAILY [facility] Loratadine (Loratadine 10 Mg Tablet) 10 mg PO DAILY [facility] Multivitamins/Vitamin C (Multivitamin Tablet) 1 tab PO DAILY [facility] Ondansetron HCl (Ondansetron Hcl 4 Mg/2 Ml Vial) 4 mg IVPUSH Q8H PRN PRN Reason: Nausea and Vomiting Oxycodone HCl (Oxycodone Hcl Er 10 Mg Tab.Er.12h) 10 mg PO BID [facility] Last Admin: 11/19/22 21:04 Dose: 10 mg Documented By: EJ Oxycodone HCl (Oxycodone Hcl Immed Release 5 Mg Tablet) 10 mg PO Q4H PRN PRN Reason: Pain, Moderate(Pain Scale 4-6) Sodium Chloride (0.9 % Sodium Chloride Flush 3 Ml Syringe) 3 ml IVFLUSH QSHIFT [facility] Last Admin: 11/19/22 21:38 Dose: Not Given Documented By: EJ Non-Admin Reason: IV Running Vitamin D (Cholecalciferol (Vitamin D3) 25 Mcg Tablet) 25 mcg PO DAILY [facility] Labs 11/20/22 05:12 11/20/22 05:12 Labs: Laboratory Results - last 24 hr 11/20/22 11/20/22 05:12 05:12 MCV 97.6 MCH 32.1 MCHC 32.9 RDW 12.6 Plt Count 385 MPV 8.1 L Immature Gran % (Auto) 0.6 H Neut % (Auto) 73.4 H Lymph % (Auto) 14.9 L [place] % (Auto) 10.7 Eos % (Auto) 0.1 Baso % (Auto) 0.3 Lymph # (Auto) 1.4 [place] # (Auto) 1.0 Eos # (Auto) 0.0 Baso # (Auto) 0.0 Abs Immat Gran (auto) 0.06 H Absolute Neuts (auto) 7.1 Absolute Nucleated RBC 0.000 Nucleated RBC % (auto) 0.0 Anion Gap 13 Estim Creat Clear Calc 88.8 Estimated GFR > 60 Fasting Glucose 109 H Calcium 9.4 D Assessment and Plan (1) Left tibial fracture: Status: Acute Plan 57-year-old female with history of breast cancer on letrozole and Raynaud's disease admitted to Orthopedic surgery for management of left tibial fracture with consult placed hospitalist service for medical management.? Tibial plateau fracture Status post ORIF 11/19/2022 Pain management, seems good at this time Management as per orthopedic team Normocytic anemia, unspecified Likely postsurgical in some degree of dilution Follow CBC No other acute medical problems, will sign off Time Spent With Patient Time: Total time managing care of this patient today ____ minutes. Quality Stroke Does the patient have a stroke diagnosis?: No VTE Prior VTE?: No VTE Risk Level:: Medical - moderate - high VTE Device Contraindication: N/A - Device Ordered VTE Drug Contraindication: N/A - Med Ordered
[2022-11-20] MEDS: oxyCODONE HCl ER 10 MG TAB.ER.12H PO ×2 (08:31→20:16)
[2022-11-20] MEDS: Multivitamin TABLET 1 TAB PO (08:32)
[2022-11-20] MEDS: Loratadine 10 MG TABLET PO (08:32)
[2022-11-20] MEDS: Docusate Sodium 100 MG CAPSULE PO ×2 (08:32→20:16)
[2022-11-20] MEDS: Cholecalciferol (Vitamin D3) 25 MCG TABLET PO (08:32)
--- NOTE | 2022-11-20 09:12 | P.OP_ITS ---
Operative Note Operative Note Date of Service: 11/19/22 Narrative: Date of Service: 11/19/22 Pre-op diagnosis: Left tibial plateau schatzer 4/5 Post-op diagnosis: same Procedure: ORIF left tibial plateau Implants: Jose Luis medial and lateral locking plates Hydroset 5 ml Surgeon: Erwin Chin MD Anesthesia: GETA Was an Surveillance Dual Rate Officer used for this Procedure?: Yes Surveillance Dual Rate Officer: Jackie Charles Estimated blood loss (mL): 200 Tourniquet time (min): 120 IV fluids (mL): 1,000 Pathology: none sent Condition: stable Disposition: PACU Procedure in detail: Patient was brought to the operating room and placed supine on the surgical table. She was prepped and draped in standard sterile fashion and a time out was called to identify proper site, proper procedure and IV antibiotics per weight were administered. I began by exsanguinating the limb. I began byu making a 6-8 cm incision over the medial plateau. The pes tendons were identified distally and the joint line proximally. The MCL was protected and the anteromedial plateau was identified. A periosteal elevator was used to clean off the posteromedial plateau and the fracture was palpated distally. Reduction was provisionally performed with a tenaculum and a medial plate was provisionally placed and k-wires were used to maintain reduction. Biplaanar fluoro was used to confirm hardware placement and fracture reduction. Anatomic reduction distally not possible but articular reduction was reduced to less than 2 mm and the medial plate and screws were placed using standard AO technique. The MCL and Pes anserine were protected at all times and the saphenous NV bundle was also identified and protected. I then made a curvilinear incision over the ITB extending distally over the joint line and arching anteriorly over Gerdy's tubercle. Full thickness skin flaps were developed and the ITB was incised in line with the skin incision. The capsule was identified and then incised releasing hematogenous fluid. THe coronal ligaments were transected and the lateral meniscus was tagged and retracted proximally. There was split-depressed lateral plateau fracture. I elevated the ITB off of Gerdy's tubercle and lateral and distal to this I made a small cortical window and placed a tamp through this. Under both radiographic and direct visualization I tamped up the articular surface until I was satisfied that the articular anatomy was as closely reproduced as possible. I placed 5 ml of Hydroset through the cortical window. Once this was dry a lateral locking plate was selected and then placed. Using standard AO technique my proximal locking screws and distal non-locking cortical screws were placed. Biplanar fluro was used to confirm fracture reduction and hardware alignment. Once I was satisfied with both final fluorscopic images were taken. The tourniquet was then let down and there was no brisk bleeding. The anterior compartment fascia was left open. A layered closure was performed with the meniscus repaired to the capsule laterally and then the ITB and then skin with absorbable subq and the sean. Sterile dressings were applies and a hinged knee brace as well. Patient was extubated and brought to the recovery room in stable condition. There were no known complications.
--- NOTE | 2022-11-20 11:36 | MHC.CM.PN ---
pt lives with spouse is independent and working is agreeable to dc plan of home w/ servcies pt has a ride home hvns to see pt in community
--- NOTE | 2022-11-20 13:50 | HO.POSTANES ---
Post Anesthesia Evaluation Post Anesthesia Evaluation Date of Service: 11/20/22 Vital Signs: Vital Signs Temp Pulse Resp BP Pulse Ox O2 Del Method O2 Flow Rate 11/20/22 06:52 98 F 89 16 129/60 98 Room Air 11/20/22 03:49 97.3 F 82 19 132/65 99 Nasal Cannula 2 Anesthesia: General Mental Status: Awake Pain Control: Satisfactory Nausea/Vomiting: None Hydration: Adequate Anesthesia-Related Issues: No Anes. Related Issues
[2022-11-20] MEDS: Enoxaparin Sodium 40 MG/0.4 ML SYRINGE SUBCUT (15:03)
[2022-11-20 15:06] VITALS: BP 135/59; PULSE 104; RESP 18; TEMP 36.6; O2SAT 99
[2022-11-20] MEDS: Letrozole 2.5 MG TABLET PO (17:20)
[2022-11-20] MEDS: oxyCODONE HCl Immed Release 5 MG TABLET 10 MG PO (17:25)
[2022-11-20 19:10] VITALS: BP 124/58; PULSE 99; RESP 18; TEMP 37.2; O2SAT 95
[2022-11-20] MEDS: Celecoxib 200 MG CAPSULE PO (20:16)
[2022-11-21 04:00] VITALS: BP 134/62; PULSE 83; RESP 18; TEMP 36.8; O2SAT 96
[2022-11-21 07:08] LABS: MANUAL DIFF FLAG NO
[2022-11-21 07:34] LABS: Basophils Percent Auto 0.6 % (0-2); Eosinophils Absolute Auto 0.1 X10*3/uL (0.0-0.4); Eosinophils Percent Auto 1.3 % (0-4); Hematocrit 29.5 % (37.0-47.0); Hemoglobin 9.6 g/dl (12.0-16.0); Imm Gran Abs Auto 0.02 X10*3/uL (0.00-0.03); Imm Gran Pct Auto 0.3 % (0.0-0.4); Lymphocytes Absolute Auto 1.6 X10*3/uL (1.2-4.9); Mean Corpuscular HGB Conc 32.5 g/dl (31.0-35.0); Mean Corpuscular Volume 98.3 fL (80.0-98.0); Mean Platelet Volume 8.5 fL (9.4-12.3); Monocytes Absolute Auto 0.8 X10*3/uL (0.1-1.2); Monocytes Percent Auto 11.5 % (2-11); Neutrophils Absolute Auto 4.4 x10*3/uL (2.0-8.3); Neutrophils Percent Auto 63.3 % (45-73); Platelet Count 381 X10*3/uL (160-400); Red Cell Distribution Width 12.6 % (11.0-16.0)
[2022-11-21 07:43] VITALS: BP 131/63; PULSE 92; RESP 18; TEMP 36.9; O2SAT 95
[2022-11-21 07:43] LABS: Anion Gap 9 (12-20); Blood Urea Nitrogen 7 mg/dL (9-16); Calcium 9.2 mg/dL (8.4-10.2); Carbon Dioxide 31 mmol/L (22-29); Chloride 105 mmol/L (96-108); Creatinine Clr Calc Pharmacy 91.5; Estimated Glomerular Filt Rate > 60; Glucose Fasting 103 mg/dL (60-99); Potassium 4.4 mmol/L (3.3-5.1); Sodium 141 mmol/L (135-145)
[2022-11-21] MEDS: Loratadine 10 MG TABLET PO (08:25)
[2022-11-21] MEDS: oxyCODONE HCl ER 10 MG TAB.ER.12H PO (08:25)
[2022-11-21] MEDS: Docusate Sodium 100 MG CAPSULE PO (08:25)
[2022-11-21] MEDS: Cholecalciferol (Vitamin D3) 25 MCG TABLET PO (08:25)
[2022-11-21] MEDS: Multivitamin TABLET 1 TAB PO (08:25)
[2022-11-21] MEDS: Celecoxib 200 MG CAPSULE PO (08:26)
--- NOTE | 2022-11-21 09:35 | PM.PNORT ---
Subjective Subjective Date of Service: 11/21/22 Interval history: POD2 s/p left tibial plateau ORIF. Patient is resting in bed. No overnight events. No additional complaints. Pain is managed. Physical Exam Vital Signs: Vital Signs: Last Vital Signs Temp 98.5 F 11/21/22 07:43 Pulse 92 11/21/22 07:43 Resp 18 11/21/22 07:43 BP 131/63 11/21/22 07:43 Pulse Ox 95 11/21/22 07:43 O2 Del Method Room Air 11/21/22 07:43 O2 Flow Rate 2 11/20/22 03:49 BMI result Body Mass Index 29.0 Const: General: cooperative, healthy appearing and no acute distress Resp: Effort & Inspection: normal respiratory effort and able to speak in complete sentences Cardio: Rate: regular rate Peripheral pulses: Peripheral pulses 2+ throughout GI: Palpation (GI): Soft to palpation Skin: Lesions: no lesions Rashes: no rashes Extrem: Other: LLE Aquacel bandages intact. Clean. Dry. Able to dorsi/plantar flex. Pedal pulse intact. Reported slight deminished sensation and tingling in the saphenous nerve distribution. Procedures Date of Service Date of Service: 11/21/22 Progress Note: A&P Assessment and plan (1) Left tibial fracture: Status: Acute Plan Continue pain mgmnt Continue Lovenox for dvt ppx Continue PT for LLE tibial plateau ORIF - NWB Dispo planning- PT stair trial, pain mgmnt Needs to be placed in ACL brace locked in ext while ambulating before d/c. Time Spent With Patient Time: Total time managing care of this patient today ____ minutes. Quality Stroke Does the patient have a stroke diagnosis?: No VTE Prior VTE?: No VTE Risk Level:: Medical - moderate - high VTE Device Contraindication: N/A - Device Ordered VTE Drug Contraindication: N/A - Med Ordered
--- NOTE | 2022-11-21 09:45 | P.F2F_ITS ---
Service Date Service Date: 11/21/22 Encounter Date of encounter: 11/21/22 Reasons for Services Signs and symptoms assessed: s/p left tibial plateau ORIF. Pt. is considered homebound due to recent surgery. Unable to drive, poor balance, poor gait mechanics. Reason for physical therapy: home safety and mobility, therapeutic exercises, restore joint function, gait/transfer training, assess need for DME and ADL training Reason for occupational therapy: home safety and mobility, therapeutic exercises, restore joint function, gait/transfer training, assess need for DME and ADL training Homebound: Leaving the home is medically contraindicated at this time without the asist of a device and/or another person due th the listed conditions above and below. Reason homebound: unsteady gait / fall risk, leg weakness, pain with ambulation, pain with transfers, poor balance / fall risk and unable to drive Certification: Based on the above findings, I certify that this patient is confined to the home and needs intermittent correction care, physical therapy and/or speech therapy, or continues to need occupational therapy. The patient is under my care, and I have initiated the establishment of the plan of care. The patient will be followed by a physician who will periodically review the plan of care. Time Spent With Patient Time: Total time managing care of this patient today ____ minutes.
--- NOTE | 2022-11-21 09:46 | PM.DS ---
DS: Providers Provider Date of Service: 11/21/22 Primary care physician: Capri Souza MD Consults: 11/19/22 18:49 Consult to Hospitalist Routine Comment: Consulting Provider: Hospitalist Reason For Exam: Routine medical management DS: Diagnosis Discharge Diagnosis (1) Left tibial fracture: Status: Acute DS: Summary Hospital Course Hospital Course: The patient underwent a successful left tibial plateau ORIF, they were transferred to PACU and then to the floor to recover. During their stay, their vitals were stable, afebrile at 98.5. Labs were unremarkable, H/H 9.6/29.5. POD 1 they were started on Lovenox injections for DVT ppx, they also received Physical Therapy services twice a day. Prior to discharge, their dressings were clean dry and intact, and the plan was to be discharged home with VNA services. Time Spent with Patient Time attestation: Total time managing care of this patient today ____ minutes. Discharge coordination time: Less than 30 minutes Quality: Safe Use of Opioids Does Pt have an Active Cancer Diagnosis on the Problem List?: No Quality: Stroke Does the patient have a stroke diagnosis?: No Physical Exam Vital Signs: Vital Signs: Last Vital Signs Temp 98.5 F 11/21/22 07:43 Pulse 92 11/21/22 07:43 Resp 18 11/21/22 07:43 BP 131/63 11/21/22 07:43 Pulse Ox 95 11/21/22 07:43 O2 Del Method Room Air 11/21/22 07:43 O2 Flow Rate 2 11/20/22 03:49 BMI result Body Mass Index 29.0 Const: General: cooperative, healthy appearing and no acute distress Resp: Effort & Inspection: normal respiratory effort and able to speak in complete sentences Cardio: Rate: regular rate Peripheral pulses: Peripheral pulses 2+ throughout GI: Palpation (GI): Soft to palpation Skin: Lesions: no lesions Rashes: no rashes Extrem: Other: LLE Aquacel bandages are clean/dry/intact. Able to dorsi/plantar flex. Pedal pulse intact. Reported slight deminished sensation and tingling in the saphenous nerve distribution. DS: Data Data Completed and Pending Labs on day of discharge: Laboratory Results - last 24 hr 11/21/22 11/21/22 05:59 05:59 WBC 7.0 RBC 3.00 L Hgb 9.6 L Hct 29.5 L MCV 98.3 H MCH 32.0 MCHC 32.5 RDW 12.6 Plt Count 381 MPV 8.5 L Immature Gran % (Auto) 0.3 Neut % (Auto) 63.3 Lymph % (Auto) 23.0 [place] % (Auto) 11.5 H Eos % (Auto) 1.3 Baso % (Auto) 0.6 Lymph # (Auto) 1.6 [place] # (Auto) 0.8 Eos # (Auto) 0.1 Baso # (Auto) 0.0 Abs Immat Gran (auto) 0.02 Absolute Neuts (auto) 4.4 Absolute Nucleated RBC 0.000 Nucleated RBC % (auto) 0.0 Sodium 141 Potassium 4.4 Chloride 105 Carbon Dioxide 31 H Anion Gap 9 L BUN 7 L Creatinine 0.68 Estim Creat Clear Calc 91.5 Estimated GFR > 60 Fasting Glucose 103 H Calcium 9.2 Discharge Plan Discharge Patient Disposition: Home, Self-Care Referrals: Ruel Lopez PA-C [Physician Rehabilitation Program Manager] - 12/05/22 1:00 pm Discharge Medications: New celecoxib 200 mg Capsule 200 mg PO BID 30 Days Qty: 60 0RF enoxaparin 40 mg/0.4 mL Syringe 40 mg subcut Q24H 42 Days Qty: 16.8 0RF oxycodone 10 mg tablet 10 mg PO Q4H PRN (Reason: Pain, Moderate(Pain Scale 4-6)) 7 Days Qty: 42 0RF Rx Instructions: Partial Fill upon patient request. docusate sodium 100 mg Capsule 100 mg PO BID 30 Days Qty: 60 0RF Continued (DME) walker Misc See Rx Instructions .ROUTE .MEDSUPPLY Qty: 1 0RF Rx Instructions: Folding front wheeled walker letrozole 2.5 mg tablet 2.5 mg PO DAILY@1800 loratadine 10 mg tablet 10 mg PO DAILY cholecalciferol (vitamin D3) 25 mcg (1,000 unit) capsule 25 mcg PO DAILY multivitamin Tablet 1 tab PO DAILY Discharge Orders: Discharge Order (Routine); Ordered 11/21/22 Ordered By: Jackie Charles Diet: Advance to usual diet Activity on Discharge: Use cane or walker Activity Restrictions/Additional Instructions: Keep the bandage clean, dry, and intact. Brace to remain on while ambulating and locked in extension Non-weihtbearing left lower extremity Elevate, ice, perform ankle pumps Follow up with orthopedics 7-10 days post op
--- NOTE | 2022-11-21 12:03 | MHC.CM.PN ---
pt dcd today hvns notified
== END 2022-11-21 13:34 | disposition home health service (06) ==
LOC: HO.MDS 20:16 → HO.S3 20:17
PROVIDERS: Physician Assistant; PCP Internal Medicine; Visit Provider Orthopaedic Surgery
PROC: (CPT 27536; principal; 2022-11-19 14:00)
DX: S82.142A Displaced bicondylar fracture of left tibia, initial encounter for closed fracture (principal); M25.062 Hemarthrosis, left knee; W10.8XXA Fall (on) (from) other stairs and steps, initial encounter; Y93.39 Activity, other involving climbing, rappelling and jumping off; Y92.008 Other place in unspecified non-institutional (private) residence as the place of occurrence of the external cause; Y99.8 Other external cause status; I73.00 Raynaud's syndrome without gangrene; E04.2 Nontoxic multinodular goiter; M85.80 Other specified disorders of bone density and structure, unspecified site; Z85.3 Personal history of malignant neoplasm of breast; Z92.21 Personal history of antineoplastic chemotherapy; Z92.3 Personal history of irradiation; Z79.899 Other long term (current) drug therapy
CPT/HCPCS: 27536; 36415; 80048; 85025; 97116; 97161; 97166; 97530; 97535; C1713; J0131; J0690; J1100; J1170; J1650; J1885; J2250; J2405; J2795

== ENCOUNTER → 2022-11-19 11:39 | Outpatient (BNV) | payer OTHER, SELFPAY | PROVIDERS: Admitting Provider Orthopaedic Surgery; PCP Internal Medicine; Visit Provider Orthopaedic Surgery | DX: S82.142A Displaced bicondylar fracture of left tibia, initial encounter for closed fracture (principal) | CPT/HCPCS: 27535; 99024 ==

== ENCOUNTER → 2022-11-19 | Outpatient (BNV) | payer OTHER, SELFPAY | PROVIDERS: PCP Internal Medicine; Visit Provider Physician Assistant | DX: S82.202A Unspecified fracture of shaft of left tibia, initial encounter for closed fracture (principal) | CPT/HCPCS: 99024; 99499 ==

== ENCOUNTER 2022-12-05 06:47 | Outpatient (REF) | payer OTHER, SELFPAY ==
--- NOTE | ~2022-12-05 | XR_ITS ---
EXAMINATION: XR KNEE, LEFT CLINICAL INFORMATION: Pain. COMPARISON: Prior examinations, most recently fluoroscopy dated 11/19/2022. TECHNIQUE: AP and lateral views of the left knee. FINDINGS: Orthopedic hardware is redemonstrated, including lateral and medial proximal tibial fixator plates and fixator screws. There is well-maintained alignment of lateral and medial tibial plateau fractures following ORIF. Probable cement is redemonstrated within the lateral tibial plateau. A small joint effusion is seen. Multiple skin sean are noted. XR/XR knee LT 2V IMPRESSION: There is well-maintained alignment status-post ORIF of lateral and medial tibial plateau fractures. No hardware failure or loosening is seen.
== END 2022-12-05 06:48 | disposition home or self-care (01) ==
LOC: HO.HOSX 06:47
PROVIDERS: Visit Provider Physician Assistant
DX: S82.202A Unspecified fracture of shaft of left tibia, initial encounter for closed fracture (principal); X58.XXXA Exposure to other specified factors, initial encounter; Y93.9 Activity, unspecified; Y92.9 Unspecified place or not applicable; Y99.9 Unspecified external cause status
CPT/HCPCS: 73560

== ENCOUNTER 2022-12-05 11:39 | Outpatient (AMB) | payer OTHER, SELFPAY ==
--- NOTE | 2022-12-05 12:42 | A.OFFVIS_ITS ---
Intake Intake Visit Reasons: PO ORIF LT TIB.[place] 11/19/22 Intake Note: Jo a 57 year old female who presents today for a post operative left tibial plateau ORIF on 11/19/22. Patient reports she is doing well, denies pain. State only complaints is that her left leg twitches at night but she is able to fall asleep. Allergies No Known Allergies Allergy (Verified 12/05/22 12:57) HPI PO ORIF LT TIB.[place] 11/19/22 HPI Details 57-year-old female who returns to the [facility] today for post-op left tibial plateau ORIF, 11/19/[address] Chin. She states her pain is well controlled, she states the numbness and movement in her foot and ankle has improved. She continues to work with PT at home. She is doing well overall and has no concerns today. [facility]LY [facility], [facility] Medical History Deviated septum History of breast cancer Multinodular goiter Raynaud's disease Surgical History H/O lumpectomy History of thyroidectomy, subtotal Family History Father Heart attack Sister CAD (coronary artery disease) Leukemia Brother Substance abuse Sister Breast cancer Social History Household Members: Spouse Housing: House Do you presently have visiting nurse or other home services: No Alcohol intake: current Alcohol intake frequency: a few times a month Patient Tobacco Use Status: Never used Tobacco e-Cigarette/Vaping Use: Never Used Second Hand Smoke Exposure: No service: No Current occupational status: employed Cognitive needs: No Hearing needs: No Vision needs: Yes Review of Systems Const All systems reviewed & are unremarkable except as noted in HPI and below Physical Exam Extrem Other: Left knee: Incision clean, dry and intact. No erythema joint effusion. She has good sensation throughout. She is able dorsi and plantar flex the left ankle and foot. Calf supple, nontender. Results Reviewed Results Reviewed: Xrays were obtained in the office today and personally reviewed by me of the left knee show intact orthopedic hardware with stable fracture pattern Assessment & Plan Assessment & Plan (1) Left tibial fracture: Code(s): S82.A - Unspecified fracture of shaft of left tibia, initial encounter for closed fracture Qualifiers: Encounter type: subsequent encounter Fracture type: closed Fracture healing: with routine healing Plan [place] removed today, steri strips applied. She will continue to work with physical therapy which includes non-weight bearing ROM and isometric quad exercises. She will wear the brace locked in extension when she is ambulating but remembering to remain non weight bearing on her left lower extremity. She will see us back in 4 weeks with x-rays, sooner if needed. Orders: Orders XR knee LT 2V Today M25.562 - Pain in left knee Patient Instructions: Scribed for Ruel Lopez PA-C, by Sukhdeep Metzger medical referral coordinator, on 12/05/2022 at 1:00 PM EST. I, Ruel Lopez PA-C, have personally reviewed and agree with the information entered by the scribe. Coding Level of Care Code Global (37596) Diagnoses Left tibial fracture S82.A Encounter type: subsequent encounter Fracture type: closed Fracture healing: with routine healing
== END 2022-12-05 14:00 | disposition home or self-care (01) ==
PROVIDERS: PCP Internal Medicine; Visit Provider Physician Assistant
DX: S82.202A Unspecified fracture of shaft of left tibia, initial encounter for closed fracture (principal)
CPT/HCPCS: 99024

== ENCOUNTER 2023-01-02 14:19 | Outpatient (REF) | payer OTHER, SELFPAY ==
--- NOTE | ~2023-01-02 | XR_ITS ---
EXAMINATION: XR KNEE, LEFT CLINICAL INFORMATION: Pain. COMPARISON: Radiographs dated 12/05/2022. TECHNIQUE: AP and lateral views of the left knee. FINDINGS: There is stable alignment of lateral and medial tibial plateau fracture status-post ORIF. There are intact lateral and medial proximal tibial fixator plates and fixator screws. No hardware failure or loosening is seen. Probable cement is redemonstrated within the lateral tibial plateau. There is a small joint effusion. No foreign body is seen. XR/XR knee LT 2V IMPRESSION: There is stable, well-maintained alignment status-post ORIF of lateral medial tibial plateau fractures. No hardware failure or loosening is noted.
== END 2023-01-02 14:20 | disposition home or self-care (01) ==
LOC: HO.HOSX 14:19
PROVIDERS: PCP Internal Medicine; Visit Provider Physician Assistant
DX: S82.102D Unspecified fracture of upper end of left tibia, subsequent encounter for closed fracture with routine healing (principal)
CPT/HCPCS: 73560

== ENCOUNTER 2023-01-02 14:19 | Outpatient (AMB) | payer OTHER, SELFPAY ==
--- NOTE | 2023-01-02 15:10 | A.OFFVIS_ITS ---
Intake Intake Visit Reasons: PO-f/u ORIF Lt tib plateau w xrays Intake Note: Jo a 57 year old female who presents today for a post operative left tibial plateau ORIF on 11/19/22NE. Patient reports she is doing really well. She has complete at home therapy and starts outpatient therapy on 01/13/23. States takes letrozole that has a side effect of joint aches and pain, she is questioning if she will be able to take ibuprofen which provides her relief. Allergies No Known Allergies Allergy (Verified 01/02/23 15:17) HPI PO-f/u ORIF Lt tib plateau w xrays HPI Details 57-year-old female who returns to the [facility] today for post-op left tibial plateau ORIF. She has completed home therapy and is about to start outpatient therapy on 01/13/23. She states she is doing well overall and does not have any pain. She takes letrozole which causes her side effects of joint aches and pain. She would like to know if she can take ibuprofen which provides her relief. She has no other concerns today. [facility] Medical History Deviated septum History of breast cancer Multinodular goiter Raynaud's disease Surgical History H/O lumpectomy History of thyroidectomy, subtotal Family History Father Heart attack Sister CAD (coronary artery disease) Leukemia Brother Substance abuse Sister Breast cancer Social History Household Members: Spouse Housing: House Do you presently have visiting nurse or other home services: No Alcohol intake: current Alcohol intake frequency: a few times a month Patient Tobacco Use Status: Never used Tobacco e-Cigarette/Vaping Use: Never Used Second Hand Smoke Exposure: No service: No Current occupational status: employed Cognitive needs: No Hearing needs: No Vision needs: Yes Review of Systems Const All systems reviewed & are unremarkable except as noted in HPI and below Physical Exam Extrem Other: Left knee: Incision well healed. No erythema or joint effusion. ROM is 0-95 degrees. Calf supple, nontender. NVI. Results Reviewed Results Reviewed: Xrays were obtained in the office today and personally reviewed by me of the left knee show intact hardware with stable fracture alignment Assessment & Plan Assessment & Plan (1) Left tibial fracture: Code(s): S82.A - Unspecified fracture of shaft of left tibia, initial encounter for closed fracture Qualifiers: Encounter type: subsequent encounter Fracture healing: with routine healing Fracture type: closed Tibia location: proximal Fracture morphology: unspecified fracture morphology Qualified Code(s): S82.102D - Unspecified fracture of upper end of left tibia, subsequent encounter for closed fracture with routine healing Plan She will continue to remain non weight bearing. She will begin outpatient physical therapy on January 12. A new order for therapy was placed to continue non weight bearing ROM, isometric quad exercises, and hip, hamstring and glute strengthening. She will see me back in 6 weeks with new x-rays, sooner if needed. Orders: Orders PT Evaluation and Treatment 01/02/23 S82.A - Unspecified fracture of shaft of left tibia, initial encounter for closed fracture XR knee LT 2V 01/02/23 M25.562 - Pain in left knee Patient Instructions: Scribed for Ruel Lopez PA-C, by Sukhdeep Metzger medical clinic manager, on 01/02/2023 at 2:30 PM EST. IRuel PA-C, have personally reviewed and agree with the information entered by the scribe. Coding Level of Care Code Global (39462) Diagnoses Closed fracture of proximal end of left tibia with routine healing, unspecified fracture morphology, subsequent encounter S82.102D Encounter type: subsequent encounter Fracture healing: with routine healing Fracture type: closed Tibia location: proximal Fracture morphology: unspecified fracture morphology
== END 2023-01-02 15:35 | disposition home or self-care (01) ==
PROVIDERS: PCP Internal Medicine; Visit Provider Physician Assistant
DX: S82.102D Unspecified fracture of upper end of left tibia, subsequent encounter for closed fracture with routine healing (principal)
CPT/HCPCS: 99024

== ENCOUNTER 2023-02-13 09:01 | Outpatient (REF) | payer OTHER, SELFPAY ==
--- NOTE | ~2023-02-13 | XR_ITS ---
EXAMINATION: XR KNEE, LEFT CLINICAL INFORMATION: Reason for Exam M25.562 - Pain in left knee COMPARISON: Knee radiographs 01/02/2023 TECHNIQUE: 2 views of the knee FINDINGS: Again seen is medial and lateral plate and screw fixation of the healing tibial plateau fractures in unchanged alignment. No evidence of hardware fracture or complication. Joint spaces are maintained. No joint effusion. Soft tissues are unremarkable. XR/XR knee LT 2V IMPRESSION: Again seen is medial and lateral plate and screw fixation of the healing tibial plateau fractures. No evidence of hardware fracture or complication.
== END 2023-02-13 09:02 | disposition home or self-care (01) ==
LOC: HO.HOSX 09:01
PROVIDERS: Visit Provider Physician Assistant
DX: S82.102D Unspecified fracture of upper end of left tibia, subsequent encounter for closed fracture with routine healing (principal)
CPT/HCPCS: 73560

== ENCOUNTER 2023-02-13 14:25 | Outpatient (AMB) | payer OTHER, SELFPAY ==
--- NOTE | 2023-02-13 14:51 | MHC.OFFVIS ---
Intake Intake Visit Reasons: PO-f/u ORIF Lt tib plateau w xrays Intake Note: Jo a 57 year old female who presents today for a post operative left tibial plateau ORIF on 11/19/22NE. Patient reports she is doing well, she has concerns of leg color. She would like to discuss use of compression socks. Allergies No Known Allergies Allergy (Verified 02/13/23 14:57) HPI PO-f/u ORIF Lt tib plateau w xrays HPI Details 58-year-old female who returns to the office today for post-op left tibial plateau ORIF, 11/19/[address] Chin. She continues to have swelling in her knee and she also reports concerns of her leg coloration. She would like to discuss the use of compression socks. She continues to work with physical therapy as instructed. She is doing well otherwise and has no other concerns today. FORMERLY [facility], [facility] Medical History Deviated septum History of breast cancer Multinodular goiter Raynaud's disease Surgical History H/O lumpectomy History of thyroidectomy, subtotal Family History Father Heart attack Sister CAD (coronary artery disease) Leukemia Brother Substance abuse Sister Breast cancer Social History Household Members: Spouse Housing: House Do you presently have visiting nurse or other home services: No Alcohol intake: current Alcohol intake frequency: a few times a month Patient Tobacco Use Status: Never used Tobacco e-Cigarette/Vaping Use: Never Used Second Hand Smoke Exposure: No service: No Current occupational status: employed Cognitive needs: No Hearing needs: No Vision needs: Yes Review of Systems Const All systems reviewed & are unremarkable except as noted in HPI and below Physical Exam Extrem Other: Left knee: Incision well healed. No erythema or joint effusion. ROM is 0-95 degrees. Calf supple, nontender. NVI. Results Reviewed Results Reviewed: Xrays were obtained in the office today and personally reviewed by me of the left knee show intact hardware with stable fracture alignment Assessment & Plan Assessment & Plan (1) Left tibial fracture: Code(s): S82.202A - Unspecified fracture of shaft of left tibia, initial encounter for closed fracture Qualifiers: Encounter type: subsequent encounter Fracture healing: with routine healing Fracture morphology: unspecified fracture morphology Fracture type: closed Tibia location: proximal Qualified Code(s): S82.102D - Unspecified fracture of upper end of left tibia, subsequent encounter for closed fracture with routine healing Plan She will begin weight bearing as tolerated with physical therapy. She should begin weight bearing with the brace locked in extension and as her quad function improves, she can begin unlocking the brace. She has no restrictions with ROM and she should continue to work on quad strength. Once she has good quad function and is weight bearing as tolerated with good support, she can discontinue the use of brace. I would like to see her back in 8 weeks, sooner if needed. Orders: Orders PT Evaluation and Treatment 02/13/23 S82.A - Unspecified fracture of shaft of left tibia, initial encounter for closed fracture XR knee LT 2V 02/13/23 M25.562 - Pain in left knee Patient Instructions: Scribed for Ruel Lopez PA-C, by Sukhdeep Metzger hospital medical assistant, on 02/13/2023 at 2:30 PM EST. I, Ruel Lopez PA-C, have personally reviewed and agree with the information entered by the scribe. Coding Level of Care Code Global (51767) Diagnoses Closed fracture of proximal end of left tibia with routine healing, unspecified fracture morphology, subsequent encounter S82.102D Encounter type: subsequent encounter Fracture healing: with routine healing Fracture morphology: unspecified fracture morphology Fracture type: closed Tibia location: proximal
== END 2023-02-13 15:27 | disposition home or self-care (01) ==
PROVIDERS: PCP Internal Medicine; Visit Provider Physician Assistant
DX: S82.102D Unspecified fracture of upper end of left tibia, subsequent encounter for closed fracture with routine healing (principal)
CPT/HCPCS: 99024

== ENCOUNTER 2023-03-14 14:28 | Outpatient (AMB) | payer OTHER, SELFPAY ==
[2023-03-14 14:30] VITALS: BP 158/86; PULSE 76; RESP 17
--- NOTE | 2023-03-14 14:30 | A.OFFPC_ITS ---
Vital Signs 03/14/23 14:30 03/14/23 14:47 Height 5 ft 4 in BP 158/86 H 152/84 H Blood Pressure Location Lt brachial Lt brachial Position Sitting Sitting Respiration 17 Pulse 76 Pulse Source Palpation Intake Visit Reasons: Breast cancer, multinodular goiter Slat Basket Top Maker Required: No Accompanied by: Self / Same As Patient Allergies No Known Allergies Allergy (Verified 03/14/23 14:39) Tobacco use date assessed: 05/23/22 Dental Screening Dental Screen Date: 03/14/23 Did you have a dental visit in the last 12 months?: No Did you have a dental problem in the last 6 months where you did not have access to dental care?: No Was dental information given to patient?: Patient has dentist HPI Breast cancer, multinodular goiter HPI Details 58-year-old female with a history of goi ter history of breast cancer hypercholesterolemia last seen for physical in May 2022. Patient is here for follow-up. Mammogram is up-to-date, colonoscopy is due this year. History of a fall off a 4 ft height porch left knee gave out. Left tibial plateau fracture. Patient had the left tibial plateau ORIF October 2022. Patient also follows up with hematology oncology last seen in November 2022 for the breast cancer diagnosed in October 1999 left and then right breast November 2014 on letrozole [facility] Medical History Deviated septum History of breast cancer Multinodular goiter Raynaud's disease Surgical History H/O lumpectomy History of thyroidectomy, subtotal Family History Father Heart attack Sister CAD (coronary artery disease) Leukemia Brother Substance abuse Sister Breast cancer Social History Household Members: Spouse Housing: House Do you presently have visiting nurse or other home services: No Alcohol intake: current Alcohol intake frequency: a few times a month Patient Tobacco Use Status: Never used Tobacco e-Cigarette/Vaping Use: Never Used Second Hand Smoke Exposure: No service: No Current occupational status: employed Cognitive needs: No Hearing needs: No Vision needs: Yes Questionnaire Thrive Questionnaire Date Thrive assessed: 05/23/22 DUSTIN-7 AMB Questionnaire DUSTIN-7 Date DUSTIN - 7 assessed: 05/23/22 Source: Developed by Drs. Jalen Mcintyre, Annemarie Knott, Lan Vaughan and colleagues, with an educational ganesh from [employer]. Physical exam (Primary Care) Vital Signs: Last Vital Signs Pulse 76 03/14/23 14:30 Resp 17 03/14/23 14:30 BP 152/84 H 03/14/23 14:47 Tobacco/Smoking Status: Tobacco use Status Tobacco use date assessed 05/23/22 03/14/23 14:30 Patient Tobacco Use Status Never used Tobacco 03/14/23 14:30 e-Cigarette/Vaping Use Never Used 03/14/23 14:30 Thrive Assessment: Date of Thrive Assessment Date Thrive assessed 05/23/22 03/14/23 14:30 Const General: alert; No acute distress Eyes Conjunctivae: conjunctivae normal Resp Auscultation: clear to auscultation bilaterally Cardio Rate: regular rate Rhythm: regular rhythm GI Inspection: Yes normal to inspection Extrem General: Yes normal to inspection and No edema Assessment and Plan Assessment & Plan (1) Left tibial fracture: Comment: Status post ORIF Dr. Chin October 2022 Code(s): S82.A - Unspecified fracture of shaft of left tibia, initial encounter for closed fracture Qualifiers: Encounter type: subsequent encounter Tibia location: proximal Fracture type: closed Fracture morphology: unspecified fracture morphology Fracture healing: with routine healing Qualified Code(s): S82.102D - Unspecified fracture of upper end of left tibia, subsequent encounter for closed fracture with routine healing Plan: Patient continues to be followed up by orthopedics and on physical therapy (2) Hypercholesterolemia: Code(s): E78.00 - Pure hypercholesterolemia, unspecified Plan: Avoid fried foods, chicken skin, eggs, butter margarine, pastries and meat. Be it pork or beef they have a lot of cholesterol LDL goal of less than 130 and triglyceride of less than 150 (3) Blood pressure elevated without history of HTN: Code(s): R03.0 - Elevated blood-pressure reading, without diagnosis of hypertension (4) History of breast cancer: Comment: Dr. Juliet Odom October 2014 Code(s): Z85.3 - Personal history of malignant neoplasm of breast Plan: Continue with Hematology-Oncology as well as MRI and mammogram schedules. (5) Osteopenia: Code(s): M85.80 - Other specified disorders of bone density and structure, unspecified site Plan: discussion on treatment alendronate vs zometa- will be seeing oncology again (6) Ulnar neuropathy at elbow of right upper extremity: Code(s): G56.21 - Lesion of ulnar nerve, right upper limb Plan: call if getting worse and avoid elbow pressure (7) Anemia: Code(s): D64.9 - Anemia, unspecified Plan: will work up Orders: Orders Complete Blood Count Auto Diff Today D64.9 - Anemia, unspecified Ferritin Today D64.9 - Anemia, unspecified Reticulocyte Count Today D64.9 - Anemia, unspecified Vitamin B12 and Folate Today D64.9 - Anemia, unspecified IRON PROFILE Today D64.9 - Anemia, unspecified Coding Level of Care Code Est Pt Level 4 (48617) Diagnoses Closed fracture of proximal end of left tibia with routine healing, unspecified fracture morphology, subsequent encounter S82.102D Encounter type: subsequent encounter Tibia location: proximal Fracture type: closed Fracture morphology: unspecified fracture morphology Fracture healing: with routine healing Hypercholesterolemia E78.00 Blood pressure elevated without history of HTN R03.0 History of breast cancer Z85.3 Osteopenia M85.80 Ulnar neuropathy at elbow of right upper extremity G56.21 Anemia D64.9
[2023-03-14 14:47] VITALS: BP 152/84
== END 2023-03-14 15:27 | disposition home or self-care (01) ==
PROVIDERS: PCP Internal Medicine; Visit Provider Internal Medicine
DX: S82.102D Unspecified fracture of upper end of left tibia, subsequent encounter for closed fracture with routine healing (principal); E78.00 Pure hypercholesterolemia, unspecified; R03.0 Elevated blood-pressure reading, without diagnosis of hypertension; Z85.3 Personal history of malignant neoplasm of breast; M85.80 Other specified disorders of bone density and structure, unspecified site; G56.21 Lesion of ulnar nerve, right upper limb; D64.9 Anemia, unspecified
CPT/HCPCS: 99214

== ENCOUNTER 2023-04-04 13:00 | Outpatient (RCR) | payer OTHER, SELFPAY ==
--- NOTE | 2023-01-13 15:00 | MHC.PT.EP ---
[facility] [place] Office [place] Office [place] Office [address] Flora Yost [address] [phone] F: [phone] F: [phone] F: [phone] F: [phone] Physical Therapy Plan of Care Date of Evaluation: 01/13/23 Date of Surgery: 11/19/22 Diagnosis: Unspecified fracture of shaft of L tibia, initial encounter for closed fracture s/p ORIF Assessment: Jo is a 58 year old female who is referred to PT for Unspecified fracture of shaft of L tibia, initial encounter for closed fracture . She had ORIF on 11/19/22. She is 8 weeks post op. She is currently NWB for 6 more weeks, allowed NWB ambulation with brace locked in extension. On PT examination she presented with 0/10 pain, no TTP, decreased L knee ROM, decreased, L LE strength, altered posture, balance and gait. She lives with her who assists her for all ADLS. 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 She enjoyed walking and golfing prior to injury. She would benefit from skilled PT to address the aforementioned impairments and improve tolerance to functional activities. Frequency and Duration: The patient will be seen 2/week for 13 weeks Short Term Goals: 1. Pt will be able to move her knee through full plane of motion which will enable her to sit with knee hanging down without discomfort in 2 weeks. 2. Pt will demonstrate ability to negotiate 5 steps with crutches in 4 weeks. 3. Pt will demonstrate an increase in muscle strength by 1 grade in B LE which will enable her to ambulate NWB with crutch/walker in 5 weeks Detention Goals: 1. Pt will be able to ambulate with WBAT and crutch/ walker without any pain in 7 weeks. 2. Pt will be able able to negotiate stairs without WBAT on L LE and min UE support in 9 weeks. 3. Pt will be able to demonstrate full weight bearing on L LE and ambulate without AD in 11 weeks. 4. Pt will be independent with all HEP and return to PLOF in 13 weeks. Treatment Plan: Modalities to reduce pain, spasms and effusion. Manual therapy to restore motion and function. Therapeutic exercise to improve strength and flexibility. Neuromuscular re-education for posture and balance. Therapeutic activities to return to functional activities of daily living. Electronically signed by: Debbie Nunes PT DPT Please sign and return to therapist. Thank you for your referral.
--- NOTE | 2023-05-27 11:44 | MHC.PT.DC ---
[facility] [place] [facility] [place] [facility] [place] Office [address] Flora Yost [address] [phone] F: [phone] F: [phone] F: [phone] F: [phone] Physical Therapy Discharge Report Diagnosis: Unspecified fracture of shaft of L tibia, initial encounter for closed fracture s/p ORIF Date of Surgery: 11/19/22 Date of Evaluation: 01/13/23 Date of Discharge: 05/27/23 Treatments to Date: 22 Cancellations to Date: 0 No Shows to Date: Discharge Status: Insurance Declined Tx Discharge Summary: Jo attended 22 PT visits and was unable to continue PT beyond that as insurance declined further coverage. She is therefore being d/c from PT. Electronically signed by: Debbie Nunes, PT DPT Please sign and return to therapist. Thank you for your referral.
== END 2023-05-27 11:44 | disposition home or self-care (01) ==
LOC: HO.PT 13:00
PROVIDERS: PCP Internal Medicine; Visit Provider Physician Assistant
DX: S82.202D Unspecified fracture of shaft of left tibia, subsequent encounter for closed fracture with routine healing (principal)
CPT/HCPCS: 97014; 97110; 97112; 97116; 97140; 97161; 97530

== ENCOUNTER 2023-04-07 08:32 | Outpatient (REF) | payer OTHER, SELFPAY ==
--- NOTE | ~2023-04-07 | XR_ITS ---
EXAMINATION: XR KNEE, LEFT CLINICAL INFORMATION: Pain in left knee. COMPARISON: 02/13/2023. TECHNIQUE: 2 views of the left knee. FINDINGS: Bones are diffusely demineralized. Redemonstration of medial and lateral plate and screw fixation of healing tibial fracture, similar in alignment. Hardware appears intact. Mild medial joint space narrowing. Small joint effusion. XR/XR knee LT 2V IMPRESSION: Redemonstration of medial and lateral plate and screw fixation of healing tibial fracture, similar in alignment.
== END 2023-04-07 08:33 | disposition home or self-care (01) ==
LOC: HO.HOSX 08:32
PROVIDERS: Visit Provider Physician Assistant
DX: S82.102D Unspecified fracture of upper end of left tibia, subsequent encounter for closed fracture with routine healing (principal)
CPT/HCPCS: 73560

== ENCOUNTER 2023-04-07 10:49 | Outpatient (AMB) | payer OTHER, SELFPAY ==
--- NOTE | 2023-04-07 11:00 | MHC.OFFVIS ---
Intake Vital Signs 04/07/23 11:18 Height 5 ft 4 in Intake Visit Reasons: OV-f/u ORIF Lt tib plateau 11/19/22 Intake Note: Jo a 57 year old female presents today for a post operative ORIF of left tibial plateau, DOS 11/19/22NE. Patient reports she is doing okay, complaints of pain/ache at the medial aspect of knee with walking or attending PT. States soreness in her left shoulder and foot. Finds relief with ibuprofen. Allergies No Known Allergies Allergy (Verified 04/07/23 11:19) HPI OV-f/u ORIF Lt tib plateau 11/19/22 HPI Details 58-year-old female who returns to the office today for a follow-up of left tibial plateau ORIF, 11/19/[address] Chin. She states sha has pain and ache in the medial aspect of her knee which is aggravated with walking and working with physical therapy. She also c/o soreness in her foot and shoulder. She continues to work with physical therapy as instructed. She finds relief with ibuprofen. [facility] Medical History Deviated septum History of breast cancer Multinodular goiter Raynaud's disease Surgical History H/O lumpectomy History of thyroidectomy, subtotal Family History Father Heart attack Sister CAD (coronary artery disease) Leukemia Brother Substance abuse Sister Breast cancer Social History Household Members: Spouse Housing: House Do you presently have visiting nurse or other home services: No Alcohol intake: current Alcohol intake frequency: a few times a month Patient Tobacco Use Status: Never used Tobacco e-Cigarette/Vaping Use: Never Used Second Hand Smoke Exposure: No service: No Current occupational status: employed Cognitive needs: No Hearing needs: No Vision needs: Yes Review of Systems Const All systems reviewed & are unremarkable except as noted in HPI and below Physical Exam Extrem Other: Left knee: Incision well healed. No erythema or joint effusion. ROM is 0-110 degrees with good quad activation. Calf supple, nontender. NVI. Results Reviewed Results Reviewed: Xrays were obtained in the office today and personally reviewed by me of the left knee show intact hardware with stable fracture alignment Assessment & Plan Assessment & Plan (1) Left tibial fracture: Comment: Status post ORIF Dr. Chin October 2022 Code(s): S82.A - Unspecified fracture of shaft of left tibia, initial encounter for closed fracture Qualifiers: Encounter type: subsequent encounter Fracture healing: with routine healing Fracture morphology: unspecified fracture morphology Fracture type: closed Tibia location: proximal Qualified Code(s): S82.102D - Unspecified fracture of upper end of left tibia, subsequent encounter for closed fracture with routine healing Plan She will continue working on physical therapy to improve her strengthening and gait training. She will continue to increase activity as tolerated and see me back in 6-8 weeks with new x-rays, sooner if needed. Orders: Orders XR knee LT 2V Today M25.562 - Pain in left knee Medications: New celecoxib (Celebrex) 200 mg PO BID 60 caps 3RF 30 days Patient Instructions: Scribed for Ruel Lopez PA-C, by Sukhdeep Metzger medical investigator, on 04/07/2023 at 11:00 AM JOHN. Ruel Carmen PA-C, have personally reviewed and agree with the information entered by the scribe. Coding Level of Care Code Est Pt Level 3 (38955) Diagnoses Closed fracture of proximal end of left tibia with routine healing, unspecified fracture morphology, subsequent encounter S82.102D Encounter type: subsequent encounter Fracture healing: with routine healing Fracture morphology: unspecified fracture morphology Fracture type: closed Tibia location: proximal
== END 2023-04-07 11:46 | disposition home or self-care (01) ==
PROVIDERS: PCP Internal Medicine; Visit Provider Physician Assistant
DX: S82.102D Unspecified fracture of upper end of left tibia, subsequent encounter for closed fracture with routine healing (principal)
CPT/HCPCS: 99213

== ENCOUNTER 2023-04-24 13:40 | Outpatient (REF) | payer OTHER, SELFPAY ==
[2023-04-24 13:54] LABS: MANUAL DIFF FLAG NO
[2023-04-24 14:45] LABS: Basophils Percent Auto 0.6 % (0-2); Eosinophils Absolute Auto 0.1 X10*3/uL (0.0-0.4); Eosinophils Percent Auto 1.4 % (0-4); Hematocrit 41.7 % (37.0-47.0); Hemoglobin 14.1 g/dl (12.0-16.0); Imm Gran Abs Auto 0.02 X10*3/uL (0.00-0.03); Imm Gran Pct Auto 0.3 % (0.0-0.4); Immature Retic Fraction 11.4 % (3.0-15.9); Lymphocytes Absolute Auto 2.2 X10*3/uL (1.2-4.9); Lymphocytes Percent Auto 31.2 % (20-40); Mean Corpuscular HGB Conc 33.8 g/dl (31.0-35.0); Mean Corpuscular Hemoglobin 32.8 pg (27.0-33.0); Mean Platelet Volume 8.6 fL (9.4-12.3); Monocytes Absolute Auto 0.5 X10*3/uL (0.1-1.2); Monocytes Percent Auto 6.4 % (2-11); Neutrophils Absolute Auto 4.3 x10*3/uL (2.0-8.3); Neutrophils Percent Auto 60.1 % (45-73); Platelet Count 481 X10*3/uL (160-400); Red Cell Distribution Width 13.4 % (11.0-16.0); Retic HGB Equivalent 37.6 pg (30.0-35.0); Reticulocyte Percent 2.9 % (0.5-1.8); Reticulocytes Absolute 0.124 X10*6/uL (0.026-0.095); White Blood Count 7.1 X10*3/uL (4.8-10.8)
[2023-04-24 15:33] LABS: Iron 79 mcg/dL (30-160); Percent Iron Saturation 24 % (15-50); Total Iron Binding Capacity 334 mcg/dL (228-428); Unsaturated Iron Binding 255 ug/dL
[2023-04-24 15:50] LABS: Ferritin 172 ng/mL (10-250)
[2023-04-24 16:00] LABS: Folate 15.9 ng/mL (> or = 4.0); Vitamin B12 544 pg/mL (200-900)
== END 2023-04-24 13:41 | disposition home or self-care (01) ==
LOC: HO.LAB 13:40
PROVIDERS: PCP Internal Medicine; Visit Provider Internal Medicine
DX: D64.9 Anemia, unspecified (principal)
CPT/HCPCS: 36415; 82607; 82728; 82746; 83540; 85025; 85045

== ENCOUNTER 2023-05-26 10:47 | Outpatient (AMB) | payer OTHER, SELFPAY ==
--- NOTE | 2023-05-26 11:02 | A.OFFVIS_ITS ---
Intake Intake Visit Reasons: OV- ORIF Lt tib plateau 11/19/22 w xrays Intake Note: Jo a 57 year old female presents today for a post operative ORIF of left tibial plateau, DOS 11/19/22NE. Xrays updated while in office. Patient reports for about 3 weeks she has been experiencing locking and clicking with flexion in her knee. States her health insurance denied appeal for continuing PT. She continues to do at home exercises and water aerobics. She has concerns of LT shoulder pain that comes and goes, states noticing achy pain in her shoulder when she was non weight bearing. Denies any injury to shoulder. Allergies No Known Allergies Allergy (Verified 04/07/23 11:19) HPI OV- ORIF Lt tib plateau 11/19/22 w xrays HPI Details 58-year-old female who returns to the [facility] today for post-op left tibial plateau ORIF, 11/19/22. She reports she has been experiencing locking and clicking in her knee for the past 3 weeks. Her symptoms come with stair use, bending, twisting motions, flexion, and getting in and out her car. She also c/o pain with driving her car. She continues to do home exercises and water aerobics as instructed. She states her insurance denied appeal for continuing physical therapy. [facility] Medical History Deviated septum History of breast cancer Multinodular goiter Raynaud's disease Surgical History H/O lumpectomy History of thyroidectomy, subtotal Family History Father Heart attack Sister CAD (coronary artery disease) Leukemia Brother Substance abuse Sister Breast cancer Social History Household Members: Spouse Housing: House Do you presently have visiting nurse or other home services: No Alcohol intake: current Alcohol intake frequency: a few times a month Patient Tobacco Use Status: Never used Tobacco e-Cigarette/Vaping Use: Never Used Second Hand Smoke Exposure: No service: No Current occupational status: employed Cognitive needs: No Hearing needs: No Vision needs: Yes Review of Systems Const All systems reviewed & are unremarkable except as noted in HPI and below Physical Exam Extrem Other: Left knee: Incision well healed. No erythema or joint effusion. ROM is 0-110 degrees with good quad activation. Calf supple, nontender. NVI. Results Reviewed Results Reviewed: Xrays were obtained in the office today and personally reviewed by me of the left knee show intact hardware with stable fracture alignment Assessment & Plan Assessment & Plan (1) Left tibial fracture: Comment: Status post ORIF Dr. Chin October 2022 Code(s): S82.A - Unspecified fracture of shaft of left tibia, initial encounter for closed fracture Qualifiers: Encounter type: subsequent encounter Fracture healing: with routine healing Fracture morphology: unspecified fracture morphology Fracture type: closed Tibia location: proximal Qualified Code(s): S82.102D - Unspecified fracture of upper end of left tibia, subsequent encounter for closed fracture with routine healing (2) Internal derangement of left knee: Code(s): M23.92 - Unspecified internal derangement of left knee (3) Post-traumatic osteoarthritis of left knee: Code(s): M17.32 - Unilateral post-traumatic osteoarthritis, left knee Plan Unable to reproduce any mechanical symptoms in the office today. I feel as she would benefit from continued physical therapy and did put in an order today for her post traumatic arthritis and internal derangement symptoms. She will continue to increase activity as tolerated and see me back in 6 weeks if symptoms persists, otherwise as needed. Orders: Orders XR knee LT 2V Today M25.562 - Pain in left knee PT Evaluation and Treatment Today M17.32 - Unilateral post-traumatic osteoarthritis, left knee, M23.92 - Unspecified internal derangement of left knee Patient Instructions: Scribed for Ruel Lopez PA-C, by Sukhdeep Metzger certified medical coder, on 05/26/2023 at 11:00 AM JOHN. Nella, Ruel Lopez PA-C, have personally reviewed and agree with the information entered by the scribe. Coding Level of Care Code Est Pt Level 3 (37777) Diagnoses Closed fracture of proximal end of left tibia with routine healing, unspecified fracture morphology, subsequent encounter S82.102D Encounter type: subsequent encounter Fracture healing: with routine healing Fracture morphology: unspecified fracture morphology Fracture type: closed Tibia location: proximal Internal derangement of left knee M23.92 Post-traumatic osteoarthritis of left knee M17.32
== END 2023-05-26 11:53 | disposition home or self-care (01) ==
PROVIDERS: PCP Internal Medicine; Visit Provider Physician Assistant
DX: S82.102D Unspecified fracture of upper end of left tibia, subsequent encounter for closed fracture with routine healing (principal); M23.92 Unspecified internal derangement of left knee; M17.32 Unilateral post-traumatic osteoarthritis, left knee
CPT/HCPCS: 99213

== ENCOUNTER 2023-05-26 14:34 | Outpatient (REF) | payer OTHER, SELFPAY ==
--- NOTE | ~2023-05-26 | XR_ITS ---
EXAMINATION: XR KNEE, LEFT CLINICAL INFORMATION: Pain in left knee. COMPARISON: 04/07/2023, 02/13/2023, 01/02/2023. TECHNIQUE: AP and lateral views of the left knee. FINDINGS: Redemonstration of medial and lateral plate and screw fixation of healing tibial plateau fractures in unchanged alignment. Hardware appears intact. Mild medial joint space narrowing. Small joint effusion. Bones are diffusely demineralized. XR/XR knee LT 2V IMPRESSION: 1. Redemonstration of medial and lateral plate and screw fixation of healing tibial plateau fractures in unchanged alignment. Hardware appears intact. 2. Small joint effusion.
== END 2023-05-26 14:35 | disposition home or self-care (01) ==
LOC: HO.HOSX 14:34
PROVIDERS: Visit Provider Physician Assistant
DX: M25.562 Pain in left knee (principal)
CPT/HCPCS: 73560

== ENCOUNTER 2023-05-29 15:54 | Outpatient (AMB) | payer OTHER, SELFPAY ==
[2023-05-29 16:07] VITALS: BP 144/82; PULSE 108; O2SAT 100; BMI 29.0
--- NOTE | 2023-05-29 16:07 | A.OFFPC_ITS ---
Vital Signs 3 05/29/23 16:07 Height 5 ft 4 in Weight 169 lb BMI 29.0 BP 144/82 H Blood Pressure Location Lt brachial Position Sitting Pulse 108 H Pulse Source Pulse Oximeter Temp Source Skin Pulse Oximetry (%) 100 Oxygen Delivery Method Room Air Intake Visit Reasons: Annual Exam Intake Note: Patient is here today for a physical. 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: No Allergies No Known Allergies Allergy (Verified 05/29/23 16:07) Medication List - Last Reconciled 05/29/23 by Capri Souza MD acetaminophen (Tylenol) 650 mg (2 x 325 mg) PO Q6H PRN 30 days calcium citrate 600 mg PO DAILY celecoxib (Celebrex) 200 mg PO BID 30 days cholecalciferol (vitamin D3) 2,000 units PO DAILY docusate sodium 100 mg PO DAILY PRN letrozole 2.5 mg PO DAILY@1800 loratadine 10 mg PO DAILY multivitamin 1 tab PO DAILY walker Folding front wheeled walker Tobacco use date assessed: 05/29/23 Dental Screening Dental Screen Date: 05/29/23 Did you have a dental visit in the last 12 months?: Yes Did you have a dental problem in the last 6 months where you did not have access to dental care?: No Was dental information given to patient?: Patient has dentist HPI Annual Exam 2 HPI0 Details 58-year-old overweight female with hyper cholesterolemia history of breast cancer osteopenia coming in for physical exam last seen in 03/14/2023 had left tibial fracture ulnar neuropathy. Patient has been having breast MRI and mammogram in up-to-date with this colonoscopy was done in 2018 and due for this year bone density is up-to-date. 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 Patient also has followed up with orthopedics left knee pain status post ORIF left tibia plateau October 2022) and redemonstration of medial and lateral plate and screw fixation of the healing tibial plateau fractures with small joint effusion. dental 03/2023, zometa infusion 05/2023 and dermatology 05/2023 [facility] Medical History Deviated septum History of breast cancer Multinodular goiter Raynaud's disease Surgical History H/O lumpectomy History of thyroidectomy, subtotal Family History (Updated 05/29/23 @ 16:58 by Capri Souza MD) Father Heart attack Sister CAD (coronary artery disease) Leukemia Diabetes mellitus Brother Substance abuse Sister Breast cancer Social History (Updated 05/29/23 @ 16:59 by Capri Souza MD) Household Members: Spouse Housing: House Do you presently have visiting nurse or other home services: No Alcohol intake: current Alcohol intake frequency: a few times a month Comment: once Q 2 weeks 3 beers Patient Tobacco Use Status: Never used Tobacco e-Cigarette/Vaping Use: Never Used Second Hand Smoke Exposure: No service: No Current occupational status: employed Cognitive needs: No Hearing needs: No Vision needs: Yes Questionnaire PHQ-9 Over the last 2 weeks, how often have you been bothered by any of the following problems? 1. Little interest or pleasure in doing things: not at all 2. Feeling down, depressed, or hopeless: not at all 3. Trouble falling or staying asleep, or sleeping too much: not at all 4. Feeling tired or having little energy: not at all 5. Poor appetite or overeating: not at all 6. Feeling bad about yourself - or that you are a failure or have let yourself or your family down: not at all 7. Trouble concentrating on things, such as reading the newspaper or watching television: not at all 8. Moving or speaking so slowly that other people could have noticed. Or the opposite - being so fidgety or restless that you have been moving around a lot more than usual: not at all 9. Thoughts that you would be better off or of hurting yourself in some way: not at all Total score: 0 Depression Screening Interpretation: Negative Depression Screening Done: Yes Source: Developed by Drs. Jalen Mcintyre, Annemarie Knott, Lan Vaughan and colleagues, with an educational ganesh from [employer]. Thrive Questionnaire Date Thrive assessed: 05/29/23 I am a: Patient What is your living situation today?: I have a steady place to live Within the past 12 months, did the food you bought not last and you didn't have the money to get more?: Never true Within the past 12 months, did you worry whether your food would run out before you got money to buy more?: Never true Do you have trouble paying for medicines?: No Do you have trouble getting transportation to medical appointments?: No Do you have trouble paying your heating and electricity bill?: No Do you have trouble taking care of your child, family member or friend?: No Do you have trouble with day-to-day activities such as bathing, preparing meals, shopping, managing finances, etc.?: No Are you currently unemployed and looking for a job?: No Are you interested in more education?: No Please select the resources that you would like help with: None THRIVE Score: 0 AUDIT C Alcohol Use Questionnaire (AUDIT-C) 1. How often do you have a drink containing alcohol?: Monthly or less 2. How many drinks containing alcohol do you have on a typical day when you are drinking?: 1 or 2 3. How often do you have six or more drinks on one occasion?: Never Total Score: 1 DUSTIN-7 AMB Questionnaire DUSTIN-7 Date DUSTIN - 7 assessed: 05/29/23 Feeling nervous, anxious, or on edge: 0 = Not at all Not being able to stop or control worryin = Not at all Worrying too much about different things: 0 = Not at all Trouble relaxin = Not at all Being so restless that it is hard to sit still: 0 = Not at all Becoming easily annoyed or irritable: 0 = Not at all Feeling afraid as if something awful might happen: 0 = Not at all Total DUSTIN-7 score (0-4 normal; 5-9 mild; 10-14 moderate; 15-21 severe): 0 Source: Developed by Drs. Jalen Mcintyre, Annemarie Knott, Lan Vaughan and colleagues, with an educational ganesh from [employer]. Review of Systems Const Denies poor appetite and Denies weakness Eyes Denies no additional complaints ENT Reports Normal hearing present, Denies dizziness, Denies nasal congestion, Denies tinnitus and Denies sore throat Card Denies chest pain, Denies syncope, Denies rapid heart rate and Denies dyspnea Resp Denies cough and Denies dyspnea GI Denies change in stool character, Reports constipation, Denies diarrhea, Denies nausea and Denies vomiting Denies urinary frequency, Denies difficulty voiding and Denies dysuria Neuro Reports Normal hearing present, Denies confusion, Denies dizziness, Denies syncope and Denies weakness Psych Denies confusion Physical exam (Primary Care) Vital Signs: Last Vital Signs Pulse 108 H 05/29/23 16:07 BP 144/82 H 05/29/23 16:07 Pulse Ox 100 05/29/23 16:07 Oxygen Delivery Method Room Air 05/29/23 16:07 BMI result Body Mass Index 29.0 Tobacco/Smoking Status: Tobacco use Status Tobacco use date assessed 05/29/23 05/29/23 16:08 Patient Tobacco Use Status Never used Tobacco 05/29/23 16:08 e-Cigarette/Vaping Use Never Used 05/29/23 16:08 PHQ-9: PHQ-9 Score PHQ-9: Total score 0 05/29/23 16:27 Depression Screening Interpretation: Negative Thrive Assessment: Date of Thrive Assessment Date Thrive assessed 05/29/23 05/29/23 16:27 Const General: No confusion Orientation/consciousness: No confusion HENMT Head: Yes normocephalic Ears: external ears normal and TM's normal bilaterally Face and sinus: Yes normal facial exam Mouth: moist mucous membranes Throat: Yes tonsils normal Eyes Conjunctivae: conjunctivae normal Pupils: Equal, round and reactive pupils present and Pupil accommodation reflex normal Direct Ophthalmoscopy: normal light reflex Neck Neck: No lymphadenopathy Thyroid: Thyroid normal Chest Chest palpation & inspection: normal inspection of the chest Resp Effort & Inspection: normal respiratory effort and no audible wheezes Auscultation: clear to auscultation bilaterally, no crackles, no wheezes and lung sounds not diminished Cardio Rate: regular rate Rhythm: regular rhythm Peripheral pulses: radial pulses present and dorsalis pedis present GI Other: Patient has upcoming colonoscopy Palpation (GI): no masses Auscultation: normal bowel sounds and normoactive bowel sounds Rectal Exam - Female: deferred Skin General skin exam: no rashes or lesions noted Rashes: no rashes Neuro General: No confusion Cranial nerves: Yes Equal, round and reactive pupils present and Yes Normal hearing present Cognition (Neuro): normal cognition Gait exam (Neuro): Normal gait present Motor exam (neuro): 5/5 motor strength present throughout Deep tendon reflexes (DTR's): Right brachioradialis reflex intensity grade: 2+, Left brachioradialis reflex intensity grade: 2+, Right patellar reflex intensity grade: 2+ and Left patellar reflex intensity grade: 2+ Extrem General: No edema Elbow/forearm/wrist images: 2 1. 2 left 8 in (both sides of the left knee) incisional scars from the ORIF tibial fracture 2. Assessment and Plan Assessment & Plan (1) Annual physical exam: Code(s): Z00.00 - Encounter for general adult medical examination without abnormal findings (2) History of breast cancer: Comment: Dr. Juliet Odom October 2014 Code(s): Z85.3 - Personal history of malignant neoplasm of breast Plan: Patient is up-to-date with mammogram and continues to follow-up with Hematology- Oncology in [facility] (3) Multinodular goiter: Comment: Thyroid nodule follicular adenoma right thyroidectomy Dr. Lisa Phelan 2018 Code(s): E04.2 - Nontoxic multinodular goiter Plan: Continue to follow-up on thyroid function (4) Hypercholesterolemia: Code(s): E78.00 - Pure hypercholesterolemia, unspecified Plan: Avoid fried foods, chicken skin, eggs, butter margarine, pastries and meat. Be it pork or beef they have a lot of cholesterol LDL goal of less than 130 and triglyceride of less than 150 October 2022 last blood work (5) Left tibial fracture: Comment: Status post ORIF Dr. Chin October 2022 Code(s): S82.A - Unspecified fracture of shaft of left tibia, initial encounter for closed fracture Qualifiers: Encounter type: subsequent encounter Tibia location: proximal Fracture type: closed Fracture morphology: unspecified fracture morphology Fracture healing: with routine healing Qualified Code(s): S82.102D - Unspecified fracture of upper end of left tibia, subsequent encounter for closed fracture with routine healing Plan: Patient follows up with orthopedics (6) Anemia: Code(s): D64.9 - Anemia, unspecified Orders: Orders 2 Complete Blood Count Auto Diff 6 Months E78.00 - Pure hypercholesterolemia, unspecified Thyroid Stimulating Hormone 6 Months E78.00 - Pure hypercholesterolemia, unspecified Comprehensive Met. Panel 6 Months E78.00 - Pure hypercholesterolemia, unspecified Free T4 (Free Thyroxine) 6 Months E78.00 - Pure hypercholesterolemia, unspecified Lipid Panel 6 Months E78.00 - Pure hypercholesterolemia, unspecified Vitamin B12 and Folate 6 Months E78.00 - Pure hypercholesterolemia, unspecified Vitamin D 25-OH Total 6 Months E78.00 - Pure hypercholesterolemia, unspecified Coding Level of Care Code Est Pt Prev Care 40-64y(33159) Diagnoses Annual physical exam Z00.00 History of breast cancer Z85.3 Multinodular goiter E04.2 Hypercholesterolemia E78.00 Closed fracture of proximal end of left tibia with routine healing, unspecified fracture morphology, subsequent encounter S82.102D Encounter type: subsequent encounter Tibia location: proximal Fracture type: closed Fracture morphology: unspecified fracture morphology Fracture healing: with routine healing Anemia D64.9
== END 2023-05-29 17:17 | disposition home or self-care (01) ==
PROVIDERS: Visit Provider Internal Medicine
DX: Z00.00 Encounter for general adult medical examination without abnormal findings (principal); Z85.3 Personal history of malignant neoplasm of breast; E04.2 Nontoxic multinodular goiter; E78.00 Pure hypercholesterolemia, unspecified; S82.102D Unspecified fracture of upper end of left tibia, subsequent encounter for closed fracture with routine healing; D64.9 Anemia, unspecified
CPT/HCPCS: 99396

== ENCOUNTER 2023-06-02 13:58 | Day surgery (SDC) | payer OTHER, SELFPAY ==
--- NOTE | 2023-05-30 12:48 | P.CONAN_ITS ---
HPI - Anesthesia Eval Consult details Narrative: 58yo F for Colonoscopy [facility] Active Problems Active Problems: All Active Problems (Updated 05/26/23 @ 13:16 by Ruel Lopez PA-C) Post-traumatic osteoarthritis of left knee (Acute) Anemia (Acute) Ulnar neuropathy at elbow of right upper extremity (Acute) Osteopenia (Acute) Left tibial fracture (Acute) Colon cancer screening (Acute) Respiratory tract congestion with cough (Acute) Basal cell carcinoma (Acute) Macrocytosis (Acute) Thrombocytosis (Acute) Hypercholesterolemia (Acute) Allergy (Acute) Peripheral vascular disease (Acute) Blood pressure elevated without history of HTN (Acute) History of breast cancer (Acute) Multinodular goiter (Acute) Annual physical exam (Acute) Past Medical History Medical History Deviated septum History of breast cancer Multinodular goiter Raynaud's disease Family History Family History (Updated 05/29/23 @ 16:58 by Capri Souza MD) Father Heart attack Sister CAD (coronary artery disease) Leukemia Diabetes mellitus Brother Substance abuse Sister Breast cancer Family history of problems with anesthesia: No Surgical History Surgical History H/O lumpectomy History of thyroidectomy, subtotal History of Problems with Anesthesia: No Social History Social History (Updated 05/29/23 @ 16:59 by Capri Souza MD) Household Members: Spouse Housing: House Do you presently have visiting nurse or other home services: No Alcohol intake: current Alcohol intake frequency: a few times a month Comment: once Q 2 weeks 3 beers Patient Tobacco Use Status: Never used Tobacco e-Cigarette/Vaping Use: Never Used Second Hand Smoke Exposure: No service: No Current occupational status: employed Cognitive needs: No Hearing needs: No Vision needs: Yes Meds Allergies Allergy/AdvReac Type Severity Reaction Status Date / Time No Known Allergies Allergy Verified 05/29/23 16:07 Home Medications Medication Instructions Recorded Confirmed Last Taken Type letrozole 2.5 mg tablet 2.5 mg PO DAILY@1800 05/17/21 05/29/23 11/19/22 History loratadine 10 mg tablet 10 mg PO DAILY 05/17/21 05/29/23 11/19/22 History multivitamin 1 tab PO DAILY 05/23/22 05/29/23 11/19/22 History calcium citrate 200 mg (950 mg) 600 mg PO DAILY 03/14/23 05/29/23 Unknown History tablet docusate sodium 100 mg capsule 100 mg PO DAILY PRN 03/14/23 05/29/23 Unknown History cholecalciferol (vitamin D3) 25 2,000 unit PO DAILY 05/29/23 05/29/23 Unknown History mcg (1,000 unit) capsule Assessment and Plan Assessment Anesthesia Assessment: Chart Reviewed Final Anesthetic Review Family History of Problems with Anesthesia: No History of Problems with Anesthesia: No
[2023-06-02 14:47] VITALS: BMI 29.0
[2023-06-02 14:50] VITALS: BP 137/70; PULSE 104; RESP 18; TEMP 36.2; O2SAT 98
[2023-06-02] MEDS: Lactated Ringers 1,000 ML 100 ML IVCONT (15:10)
--- NOTE | 2023-06-02 15:26 | P.CONAN_ITS ---
[facility] Active Problems Active Problems: All Active Problems (Updated 05/26/23 @ 13:16 by Ruel Lopez PA-C) Post-traumatic osteoarthritis of left knee (Acute) Anemia (Acute) Ulnar neuropathy at elbow of right upper extremity (Acute) Osteopenia (Acute) Left tibial fracture (Acute) Colon cancer screening (Acute) Respiratory tract congestion with cough (Acute) Basal cell carcinoma (Acute) Macrocytosis (Acute) Thrombocytosis (Acute) Hypercholesterolemia (Acute) Allergy (Acute) Peripheral vascular disease (Acute) Blood pressure elevated without history of HTN (Acute) History of breast cancer (Acute) Multinodular goiter (Acute) Annual physical exam (Acute) Past Medical History Medical History Deviated septum Raynaud's disease Multinodular goiter History of breast cancer Functional capacity: independent ambulation Patient : No Family History Family History Father Heart attack Sister CAD (coronary artery disease) Leukemia Diabetes mellitus Brother Substance abuse Sister Breast cancer Family history of problems with anesthesia: No Surgical History Surgical History H/O lumpectomy History of thyroidectomy, subtotal History of Problems with Anesthesia: No Social History Social History Household Members: Spouse Housing: House Do you presently have visiting nurse or other home services: No Alcohol intake: current Alcohol intake frequency: a few times a month Comment: once Q 2 weeks 3 beers Patient Tobacco Use Status: Never used Tobacco e-Cigarette/Vaping Use: Never Used Second Hand Smoke Exposure: No Use of substances other than those prescribed or required for medical reasons: No Are you DNR?: No Advance Directives: No Advance Directives Information Provided: Yes service: No Current occupational status: employed Cognitive needs: No Hearing needs: No Vision needs: Yes Meds Allergies Allergy/AdvReac Type Severity Reaction Status Date / Time No Known Allergies Allergy Verified 05/29/23 16:07 Active Medications: Current Medications Lactated Ringer's (Lr) 1,000 mls @ 100 mls/hr IVCONT .Q10H YNES Last Admin: 06/02/23 15:10 Dose: 100 mls/hr Sodium Biphosphate/Sodium Phosphate (Sodium Phosphate,[place]-Dibasic 133 Ml Enema) 133 ml SD ONCE PRN PRN Reason: Poor Colonoscopy Prep Results Home Medications Medication Instructions Recorded Confirmed Last Taken Type letrozole 2.5 mg tablet 2.5 mg PO DAILY@1800 05/17/21 06/02/23 06/02/23 History loratadine 10 mg tablet 10 mg PO DAILY 05/17/21 06/02/23 06/02/23 History multivitamin 1 tab PO DAILY 05/23/22 06/02/23 11/19/22 History calcium citrate 200 mg (950 mg) 600 mg PO DAILY 03/14/23 06/02/23 Unknown History tablet docusate sodium 100 mg capsule 100 mg PO DAILY PRN Constipation 03/14/23 06/02/23 Unknown History cholecalciferol (vitamin D3) 25 2,000 unit PO DAILY 05/29/23 06/02/23 Unknown History mcg (1,000 unit) capsule Exam Height,Weight and Vital Signs: Height 5 ft 4 in Weight 76.657 kg Last Vital Signs Temp 97.2 F 06/02/23 14:50 Pulse 104 H 06/02/23 14:50 Resp 18 06/02/23 14:50 BP 137/70 06/02/23 14:50 Pulse Ox 98 06/02/23 14:50 O2 Del Method Room Air 06/02/23 14:50 Airway Mallampati Class: II TM Dist: >3cm Neck ROM: Full Heart: RRR Lungs: CTA Assessment and Plan Assessment Anesthesia Assessment: Anesthesia Plan Discussed Final Anesthetic Review Family History of Problems with Anesthesia: No History of Problems with Anesthesia: No NPO: Yes ASA Class: II Final Preanesthetic Review: Meds/Allgs Chart Reviewed, Consent Obtained/Reviewed and Anes Risks/Benef Reviewed Patient Risk: Low Procedure Risk: Low Anesthetic Plan Anesthetic Plan: MAC: Disposition: Standard PACU
[2023-06-02 16:20] VITALS: BP 163/79; PULSE 110; RESP 16; TEMP 36.2; O2SAT 98
--- NOTE | 2023-06-02 16:22 | PM.OP ---
Brief Operative Note Date of Service: 06/02/23 Pre-op diagnosis: Screening Post-op diagnosis: other (Colon polyps) Procedure: Colonoscopy to the cecum with hot snare polypectomy x 3 and placement of 1 Resolution clip on Transverse colon polypectomy site. Surgeon: Jalen Crabtree MD Anesthesia: MAC Was an Cordwainer used for this Procedure?: No Estimated blood loss (mL): 2.0 Pathology: other (A. Polyp at 20cm B. Polyps x 2 in Transverse colon) Condition: stable Disposition: PACU
[2023-06-02 16:35] VITALS: BP 151/89; PULSE 88; RESP 14; O2SAT 100
[2023-06-02 16:50] VITALS: BP 145/83; PULSE 87; RESP 16; TEMP 36.2; O2SAT 100
--- NOTE | 2023-06-03 02:26 | OP_ITS ---
DATE OF SERVICE: 06/02/2023 SURGEON: Jalen Crabtree MD INDICATIONS: The patient presents for evaluation of personal history of tubular adenoma of the colon and need for colorectal cancer screening. Full consent has been obtained from her for this, including risks of bleeding and perforation. PREOPERATIVE DIAGNOSIS: Colorectal cancer screening and personal history of tubular adenoma of the colon. POSTOPERATIVE DIAGNOSIS: PROCEDURE PERFORMED: Colonoscopy to the cecum with hot snare polypectomy x3 and placement of 1 resolution clip on a transverse colon polypectomy site. ESTIMATED BLOOD LOSS: COMPLICATIONS: ANESTHESIA: Monitored anesthesia care. ASSISTANTS: SPECIMENS: POSTOPERATIVE DIAGNOSES: Colorectal cancer screening and personal history of tubular adenoma of the colon, colon polyps, diverticulosis, and internal hemorrhoids. DESCRIPTION OF PROCEDURE: The patient was placed in the left lateral decubitus position the digital rectal exam revealed no abnormalities. The [employer] video pediatric colonoscope was entered into the rectum and advanced easily to the cecum. Once in the cecum, I did identify normal-appearing cecal pouch with appendiceal orifice and a normal-appearing ileocecal valve. The entire cecum and ileocecal valve appeared normal and were well visualized after copious irrigation and suctioning. There was transillumination of light deep in the right lower quadrant. The scope was then slowly withdrawn assessing all mucosal surfaces carefully. For the most part preparation was very good but did require some irrigation and suctioning. Visualization throughout the colon was excellent after that. In the transverse colon were 2 flat, approximately 8 mm polyps, both of which were removed by hot snare polypectomy and recovered by suction. The more distal of the 2 polypectomy sites had some oozing afterwards, and this was controlled with the tip of the snare with good cauterization and good hemostasis. A single resolution clip was applied to this polypectomy site with good deployment and good hemostasis. At 20 cm was an approximately 6 to 8 mm polyp on a short stalk, which was removed by hot snare polypectomy and recovered by suction. The polypectomy site appeared clean, without any sign of residual polyp nor bleeding. I did not visualize any other polyps, colitis, or angiodysplasia. There was a mild amount of sigmoid diverticulosis. In the rectum, scope was retroflexed visualizing internal hemorrhoids, but no other pathology. The rectal mucosa appeared normal. The scope was straightened and withdrawn from the patient. She tolerated the procedure well, and was returned to the recovery area in stable condition. IMPRESSION: 1. Colon polyps. 2. Diverticulosis. 3. Internal hemorrhoids. PLAN: The results of the pathology will be checked. I would recommend a repeat colonoscopy in 5 years for further screening and surveillance. She was advised not to use any aspirin and NSAIDs for 1 week. She will otherwise see me on a p.r.n. basis. MD NESHA Pichardo/GLORIA / [phone] MTDHaris
== END 2023-06-02 17:07 | disposition home or self-care (01) ==
PROVIDERS: PCP Internal Medicine; Visit Provider Internal Medicine
PROC: 0DJD8ZZ Inspection of Lower Intestinal Tract, Via Natural or Artificial Opening Endoscopic (ICD-10-PCS; CPT 45378; principal; 2023-06-02 15:40)
DX: Z12.11 Encounter for screening for malignant neoplasm of colon (principal); Z86.010 Personal history of colon polyps; D12.3 Benign neoplasm of transverse colon; K63.5 Polyp of colon; K57.30 Diverticulosis of large intestine without perforation or abscess without bleeding; K64.8 Other hemorrhoids; M85.80 Other specified disorders of bone density and structure, unspecified site; Z85.3 Personal history of malignant neoplasm of breast; Z79.899 Other long term (current) drug therapy; Z98.890 Other specified postprocedural states
CPT/HCPCS: 45385; 88305; J2704

== ENCOUNTER 2023-07-07 12:37 | Outpatient (AMB) | payer OTHER, SELFPAY ==
--- NOTE | 2023-07-07 12:40 | A.OFFVIS_ITS ---
Intake Vital Signs 07/07/23 12:51 Height 5 ft 4 in Weight 169 lb BMI 29.0 Intake Visit Reasons: OV-ORIF Lt tib plateau 11/19/22-follow up Intake Note: Jo zuniga 57 year old female presents today for a follow up s/p ORIF of left tibial plateau, DOS 11/19/22NE. Patient reports?feel better, reduce pain and 20 percentage of clicking. Pt reports insurance denied physical therapy. 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 Chin. She states she has improvement in her symptoms however she does have mild pain and clicking in her knee. She reports that her insurance denied physical therapy for her knee. She takes ibuprofen for her pain with benefits. She is doing well overall and has no other concerns today. [facility] Medical History Deviated septum Raynaud's disease Multinodular goiter History of breast cancer Surgical History H/O lumpectomy History of thyroidectomy, subtotal Family History Father Heart attack Sister CAD (coronary artery disease) Leukemia Diabetes mellitus Brother Substance abuse Sister Breast cancer Social History Household Members: Spouse Housing: House Do you presently have visiting nurse or other home services: No Alcohol intake: current Alcohol intake frequency: a few times a month Comment: once Q 2 weeks 3 beers Patient Tobacco Use Status: Never used Tobacco e-Cigarette/Vaping Use: Never Used Second Hand Smoke Exposure: No service: No Current occupational status: employed Cognitive needs: No Hearing needs: No Vision needs: Yes Review of Systems Const All systems reviewed & are unremarkable except as noted in HPI and below Physical Exam Vital Signs: BMI result Body Mass Index 29.0 Extrem Other: Left knee: Incision well healed. No erythema or joint effusion. ROM is 0-110 degrees with good quad activation. Calf supple, nontender. NVI. Assessment & Plan Assessment & Plan (1) Left tibial fracture: Comment: Status post ORIF Dr. Chin October 2022 Code(s): S82A - Unspecified fracture of shaft of left tibia, initial encounter for closed fracture Qualifiers: Encounter type: subsequent encounter Fracture healing: with routine healing Fracture morphology: unspecified fracture morphology Fracture type: closed Tibia location: proximal Qualified Code(s): S82.D - Unspecified fracture of upper end of left tibia, subsequent encounter for closed fracture with routine healing (2) Internal derangement of left knee: Code(s): M23.92 - Unspecified internal derangement of left knee (3) Post-traumatic osteoarthritis of left knee: Code(s): M17.32 - Unilateral post-traumatic osteoarthritis, left knee Plan She will continue to increase activity as tolerated working on her home exercises to regain her strength. If symptoms persist or worsens, patient will contact the office, otherwise follow-up as needed. Patient Instructions: Scribed for Ruel Lopez PA-C, by Sukhdeep Metzger medical affairs director, on 07/07/2023 at 12:45 PM EST. I, Ruel Lopez PA-C, have personally reviewed and agree with the information entered by the scribe. Coding Level of Care Code Est Pt Level 3 (77567) Diagnoses Closed fracture of proximal end of left tibia with routine healing, unspecified fracture morphology, subsequent encounter S82.102D Encounter type: subsequent encounter Fracture healing: with routine healing Fracture morphology: unspecified fracture morphology Fracture type: closed Tibia location: proximal Internal derangement of left knee M23.92 Post-traumatic osteoarthritis of left knee M17.32
[2023-07-07 12:51] VITALS: BMI 29.0
== END 2023-07-07 13:40 | disposition home or self-care (01) ==
PROVIDERS: PCP Internal Medicine; Visit Provider Physician Assistant
DX: S82.102D Unspecified fracture of upper end of left tibia, subsequent encounter for closed fracture with routine healing (principal); M23.92 Unspecified internal derangement of left knee; M17.32 Unilateral post-traumatic osteoarthritis, left knee
CPT/HCPCS: 99212

== ENCOUNTER → 2023-07-07 12:37 | Outpatient (BNVA) | payer OTHER, SELFPAY | PROVIDERS: PCP Internal Medicine; Visit Provider Physician Assistant ==

== ENCOUNTER 2023-07-15 14:17 | Outpatient (REF) | payer OTHER, SELFPAY ==
--- NOTE | ~2023-07-15 | US_ITS ---
EXAMINATION: US THYROID CLINICAL INFORMATION: Multinodular goiter. COMPARISON: Thyroid ultrasound 12/22/2020 and 09/03/2018. TECHNIQUE: Linear transducer brantley-scale and color Doppler examination with attention to the region of the thyroid. FINDINGS: SIZE: Measurements of the solitary left thyroid lobe and nodules are given in sagittal, anteroposterior and transverse dimensions respectively. Right Thyroid Lobe: Surgically absent. Left Thyroid Lobe: 4.8 x 1.8 x 2.1 cm, volume 9.3 mL. Previously 4.0 x 1.8 x 1.9 cm, volume 7.2 mL. Parenchyma: The gland echotexture is heterogeneous. Thyroid vascularity is normal. Isthmus: 0.3 cm in maximum AP dimension. Previously 0.3 cm. Estimated total number of nodules greater than or equal to 1 cm: 2. 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 Location: Left superior. Size: 1.2 x 0.6 x 1.3 cm, volume 0.5 mL. Previously: 1.0 x 0.6 x 0.9 cm, volume 0.3 mL. Nodule characteristics: Composition: Solid (2). Echogenicity: Isoechoic (1). Shape: Not taller than wide (0). Margins: Smooth (0). Echogenic Foci: None (0). ACR TI-RADS total points: 3 Previous: 4 ACR TI-RADS category: 3 Previous: 4 Significant change in size (>/= 20% in 2 dimensions and minimal increase of 2 mm or 50% or greater increase in volume): Yes Change in features: Yes Change in ACR TI-RADS risk category: Yes 2. Location: Left inferior. Size: 0.9 x 0.7 x 0.8 cm, volume 0.3 mL. Previously: 1.2 x 0.6 x 0.9 cm, volume 0.4 mL. Nodule characteristics: Composition: Solid (2). Echogenicity: Isoechoic (1). Shape: Not taller than wide (0). Margins: Smooth (0). Echogenic Foci: None (0). ACR TI-RADS total points: 3 Previous: 8 ACR TI-RADS category: 3 Previous: 5 Significant change in size (>/= 20% in 2 dimensions and minimal increase of 2 mm or 50% or greater increase in volume): No Change in features: Yes Change in ACR TI-RADS risk category: Yes 3. Location: Left inferior. Size: 1.1 x 0.6 x 0.9 cm, volume 0.3 mL. Previously: 1.0 x 0.6 x 0.7 cm, volume 0.2 mL. Nodule characteristics: Composition: Solid (2). Echogenicity: Isoechoic (1). Shape: Not taller than wide (0). Margins: Smooth (0). Echogenic Foci: None (0). ACR TI-RADS total points: 3 Previous: 3 ACR TI-RADS category: 3 Previous: 3 Significant change in size (>/= 20% in 2 dimensions and minimal increase of 2 mm or 50% or greater increase in volume): Yes Change in features: No Change in ACR TI-RADS risk category: No NODES: No lymphadenopathy is seen in the tissue surrounding the thyroid gland. US/US thyroid IMPRESSION: 1. Left thyroid lobe nodules are seen, as detailed. Recommend continued thyroid ultrasound surveillance. 2. There is heterogeneous thyroid echotexture, which can be associated with thyroiditis. 3. The right thyroid lobe is surgically absent. No abnormal mass or fluid collection is seen within the former right thyroid lobe bed. ACR TI-RADS RECOMMENDATION REFERENCE: Ultrasound-guided fine-needle aspiration, follow up ultrasound, no further followup. * TR1 (0 point) and TR2 (2 points): No FNA or followup * TR3 (3 points): FNA if more than or equal to 2.5 cm in maximum dimension, follow up ultrasound in 1, 3 and 5 years if 1.5 to 2.4 cm in maximum dimension. * TR4 (4-6 points): FNA if more than or equal to 1.5 cm in maximum dimension, follow up ultrasound in 1, 2, 3 and 5 years if 1 to 1.4 cm in maximum dimension. * TR5 (more than or equal to 7 points): FNA if more than or equal to 1 cm in maximum dimension, follow up ultrasound every year for 5 years if 0.5 to 0.9 cm in maximum dimension. * TR3, TR4 or TR5 nodules that are below the size threshold for follow up receive no followup.
== END 2023-07-15 14:18 | disposition home or self-care (01) ==
LOC: HO.US 14:17
PROVIDERS: PCP Internal Medicine; Visit Provider Internal Medicine Endocrinology, Diabetes & Metabolism
DX: E04.2 Nontoxic multinodular goiter (principal)
CPT/HCPCS: 76536

== ENCOUNTER 2023-07-28 08:35 | Outpatient (REF) | payer OTHER, SELFPAY ==
--- NOTE | ~2023-07-28 | XR_ITS ---
EXAMINATION: XR SHOULDER, LEFT CLINICAL INFORMATION: Pain in left shoulder COMPARISON: None available. TECHNIQUE: AP external rotation, Grashey, scapular Y, and axillary views of the left shoulder. FINDINGS: The bones and soft tissues are normal. No fracture. Glenohumeral joint is preserved and there are mild degenerative changes in the left acromioclavicular joint. No abnormal soft tissue calcifications. XR/XR shoulder LT min 2V IMPRESSION: Mild degenerative changes in the left acromioclavicular joint
== END 2023-07-28 08:36 | disposition home or self-care (01) ==
LOC: HO.HOSX 08:35
PROVIDERS: Visit Provider Physician Assistant
DX: M19.012 Primary osteoarthritis, left shoulder (principal)
CPT/HCPCS: 20610; 73030; J1010

== ENCOUNTER 2023-07-28 12:52 | Outpatient (AMB) | payer OTHER, SELFPAY ==
[2023-07-28 13:06] VITALS: BMI 29.0
--- NOTE | 2023-07-28 13:06 | MHC.OFFVIS ---
Vital Signs 07/28/23 13:06 Height 5 ft 4 in Weight 169 lb BMI 29.0 Intake Visit Reasons: new prob-lt shoulder pain Intake Note: New patient, left handed, presents today for left shoulder pain than began about 5 months ago. Pain started while using crutches for a period of 3 months after surgery. Complains of soreness on and off, pain to the touch, pain radiates into the left armpit. Denies limited ROM. 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 She states she has intermittent soreness and pain to touch which radiates into the left armpit. Her pain aggravated with laying on her left side. She denies any limited ROM. [facility] Medical History Deviated septum Raynaud's disease Multinodular goiter History of breast cancer Surgical History H/O lumpectomy History of thyroidectomy, subtotal Family History Father Heart attack Sister CAD (coronary artery disease) Leukemia Diabetes mellitus Brother Substance abuse Sister Breast cancer Social History Household Members: Spouse Housing: House Do you presently have visiting nurse or other home services: No Alcohol intake: current Alcohol intake frequency: a few times a month Comment: once Q 2 weeks 3 beers Patient Tobacco Use Status: Never used Tobacco e-Cigarette/Vaping Use: Never Used Second Hand Smoke Exposure: No service: No Current occupational status: employed Cognitive needs: No Hearing needs: No Vision needs: Yes Review of Systems Const All systems reviewed & are unremarkable except as noted in HPI and below Physical Exam Vital Signs: BMI result Body Mass Index 29.0 Extrem Other: Left shoulder normal to inspection. Tenderness over the bicipital groove and along the deltoid region of the shoulder. Forward flexion to 175, external rotation to 90, internal rotation to S1. 5/5 RTC strength. Negative Green and cross body abduction. NVI. Office Procedures Joint Injection/Drain Joint Injection/Drain Primary Site: left shoulder Prep: site was prepped using aseptic technique, ethochloride spray was applied and injection warnings given Injected: 80 mg of, DepoMedrol, with 8 mL of, 1% plain lidocaine and in the subcromial space Approach Used: posterolateral Procedure: The patient tolerated the procedure well and there was some relief with the local anesthesia Coding - Glenohumeral/Tronchanteric Bursa/Intraarticular Procedure code (CPT) selection complete Results Reviewed Results Reviewed: Xrays were obtained in the office today and personally reviewed by me of the left shoulder show ac joint oa Assessment & Plan Assessment & Plan (1) Osteoarthritis of left acromioclavicular joint: Code(s): M19.012 - Primary osteoarthritis, left shoulder Category: Medical (2) Tendonitis of left rotator cuff: Code(s): M75.82 - Other shoulder lesions, left shoulder Category: Medical Plan We discussed options today which include steroid injection. They did consent to move forward with the left shoulder injection, which was tolerated well. I recommended rest, ice and elevation and OTC anti-inflammatories PRN for discomfort. If symptoms persist or worsens over the next 6-8 weeks, patient will contact the office, otherwise follow-up as needed. Orders: Orders XR shoulder LT min 2V Today M25.512 - Pain in left shoulder Patient Instructions: Scribed for Ruel Lopez PA-C, by Sukhdeep Metzger medical records assistant, on 07/28/2023 at 1:00 PM EST. Ruel Carmen PA-C, have personally reviewed and agree with the information entered by the scribe. Coding Level of Care Code Est Pt Level 3 (46424) Diagnoses Osteoarthritis of left acromioclavicular joint M19.012 Tendonitis of left rotator cuff M75.82 CPT Codes Coding - Joint 7: 14356 - Glenohumeral/Tronchanteric Bursa/Intraarticular ([id number])
== END 2023-07-28 18:31 | disposition home or self-care (01) ==
PROVIDERS: PCP Internal Medicine; Visit Provider Physician Assistant
DX: M19.012 Primary osteoarthritis, left shoulder (principal); M75.82 Other shoulder lesions, left shoulder
CPT/HCPCS: 20610; 99213

== ENCOUNTER 2023-11-12 06:44 | Outpatient (REF) | payer BC, SELFPAY ==
[2023-11-12 07:10] LABS: MANUAL DIFF FLAG NO
[2023-11-12 07:48] LABS: Basophils Absolute Auto 0.1 X10*3/uL (0.0-0.2); Basophils Percent Auto 0.8 % (0-2); Eosinophils Absolute Auto 0.1 X10*3/uL (0.0-0.4); Eosinophils Percent Auto 2.3 % (0-4); Hematocrit 40.5 % (37.0-47.0); Hemoglobin 13.6 g/dl (12.0-16.0); Imm Gran Abs Auto 0.02 X10*3/uL (0.00-0.03); Imm Gran Pct Auto 0.3 % (0.0-0.4); Lymphocytes Absolute Auto 1.9 X10*3/uL (1.2-4.9); Lymphocytes Percent Auto 30.9 % (20-40); Mean Corpuscular HGB Conc 33.6 g/dl (31.0-35.0); Mean Corpuscular Hemoglobin 33.3 pg (27.0-33.0); Mean Platelet Volume 8.7 fL (9.4-12.3); Monocytes Absolute Auto 0.6 X10*3/uL (0.1-1.2); Monocytes Percent Auto 9.7 % (2-11); Neutrophils Absolute Auto 3.4 x10*3/uL (2.0-8.3); Platelet Count 456 X10*3/uL (160-400); Red Blood Count 4.09 X10*6/uL (4.20-5.50); Red Cell Distribution Width 12.8 % (11.0-16.0)
[2023-11-12 08:06] LABS: Alanine Aminotransferase 52 U/L (0-31); Albumin Level 4.1 g/dL (3.5-5.0); Alkaline Phosphatase 101 U/L (39-117); Anion Gap 14 (12-20); Aspartate Amino Transferase 38 U/L (5-31); Bilirubin Total 0.6 mg/dL (0.0-1.0); Blood Urea Nitrogen 9 mg/dL (9-16); Carbon Dioxide 26 mmol/L (22-29); Chloride 105 mmol/L (96-108); Cholesterol 219 mg/dL (<200); Estimated Glomerular Filt Rate > 60; Glucose Random 101 mg/dL (60-115); HDL Cholesterol 66 mg/dL (>40); LDL Cholesterol Calculated 119 mg/dL (<100); Potassium 4.2 mmol/L (3.3-5.1); Sodium 141 mmol/L (135-145); Total Protein 7.6 g/dL (6.5-8.0); Triglycerides 174 mg/dL (<150)
[2023-11-12 08:31] LABS: Free T4 (Free Thyroxine) 0.84 ng/dL (0.71-1.85); Vitamin D 25-OH Total 94.3 ng/mL (>30)
[2023-11-12 08:32] LABS: Folate 14.8 ng/mL (> or = 4.0); Vitamin B12 640 pg/mL (200-900)
== END 2023-11-12 06:45 | disposition home or self-care (01) ==
LOC: HO.LAB 06:44
PROVIDERS: PCP Internal Medicine; Visit Provider Internal Medicine
DX: E78.00 Pure hypercholesterolemia, unspecified (principal)
CPT/HCPCS: 36415; 80053; 80061; 82306; 82607; 82746; 84439; 84443; 85025

== ENCOUNTER 2023-11-19 07:51 | Outpatient (REF) | payer BC, SELFPAY ==
--- NOTE | ~2023-11-19 | US_ITS ---
EXAMINATION: US ABDOMEN COMPLETE CLINICAL INFORMATION: Abnormal lab. COMPARISON: Abdominal ultrasound 07/08/2012 TECHNIQUE: Real-time imaging of the abdominal viscera. FINDINGS: PANCREAS: Visualized portions of the pancreas are unremarkable however portions are obscured by bowel gas limiting evaluation. ABDOMINAL AORTA: The proximal, mid, and distal segments are normal in caliber. INFERIOR VENA CAVA: Visualized portions are normal. LIVER: Liver is enlarged measuring 19.5 cm in span. The liver contour is normal. Markedly increased hepatic echogenicity which can be seen in the setting of hepatic steatosis or underlying liver disease progressed from prior. No definite focal lesion is seen, but evaluation is limited due to poor sound beam penetration through the coarse echogenic liver parenchyma. There is no intrahepatic biliary duct dilatation seen. GALLBLADDER: Normal. The gallbladder is physiologically distended without evidence of stones, sludge, polyps, wall thickening or pericholecystic fluid. COMMON BILE DUCT: Normal in caliber measuring 0.4 cm in diameter. RIGHT KIDNEY: Normal. No hydronephrosis. No renal calculi or focal parenchymal lesions. The kidney measures 11 cm in maximum dimension. LEFT KIDNEY: Normal. No hydronephrosis. No renal calculi or focal parenchymal lesions. The kidney measures 10.9 cm in maximum dimension. SPLEEN: Normal. The spleen measures 8.3 cm in maximum dimension. FREE FLUID: None. US/US abdomen complete IMPRESSION: Hepatomegaly. Markedly increased hepatic echogenicity which can be seen in the setting of hepatic steatosis or underlying liver disease progressed from prior. No definite focal lesion is seen, but evaluation is limited due to poor sound beam penetration through the coarse echogenic liver parenchyma. Electronically signed by: Ankita Reese MD 11/22/2023 11:54 AM EDT
== END 2023-11-19 07:52 | disposition home or self-care (01) ==
LOC: HO.US 07:51
PROVIDERS: PCP Internal Medicine; Visit Provider Internal Medicine
DX: R79.89 Other specified abnormal findings of blood chemistry (principal)
CPT/HCPCS: 76700

== ENCOUNTER 2023-11-21 09:32 | Outpatient (REF) | payer BC, SELFPAY ==
--- NOTE | ~2023-11-21 | XR_ITS ---
EXAMINATION: XR KNEE, BILATERAL CLINICAL INFORMATION: M17.32 - Unilateral post-traumatic osteoarthritis, left knee COMPARISON: Radiographs 05/26/2023 TECHNIQUE: AP standing view of both knees. Lateral and sunrise views of the left knee. FINDINGS: Proximal tibial fracture fixation hardware appears intact without evidence of complication. Proximal tibial fracture is partially healed with residual fracture line at the articular surface noted in the lateral view. Trace joint effusion. The right knee appears normal on the AP view. XR/XR knee LT 3V IMPRESSION: Partially healed proximal tibial fracture with intact fixation hardware. Trace joint effusion. No acute osseous abnormality. Electronically signed by: Greg Kuo MD 11/27/2023 10:49 AM EDT
--- NOTE | ~2023-11-21 | XR_ITS ---
EXAMINATION: XR KNEE, BILATERAL CLINICAL INFORMATION: M17.32 - Unilateral post-traumatic osteoarthritis, left knee COMPARISON: Radiographs 05/26/2023 TECHNIQUE: AP standing view of both knees. Lateral and sunrise views of the left knee. FINDINGS: Proximal tibial fracture fixation hardware appears intact without evidence of complication. Proximal tibial fracture is partially healed with residual fracture line at the articular surface noted in the lateral view. Trace joint effusion. The right knee appears normal on the AP view. XR/XR knee RT 1V IMPRESSION: Partially healed proximal tibial fracture with intact fixation hardware. Trace joint effusion. No acute osseous abnormality. Electronically signed by: Greg Kuo MD 11/27/2023 10:49 AM EDT
== END 2023-11-21 09:33 | disposition home or self-care (01) ==
LOC: HO.HOSX 09:32
PROVIDERS: Visit Provider Orthopaedic Surgery
DX: M25.562 Pain in left knee (principal); M17.31 Unilateral post-traumatic osteoarthritis, right knee
CPT/HCPCS: 73560; 73562

== ENCOUNTER 2023-11-21 10:07 | Outpatient (AMB) | payer BC, SELFPAY ==
[2023-11-21 10:09] VITALS: BMI 29.0
--- NOTE | 2023-11-21 10:09 | A.OFFVIS_ITS ---
Vital Signs 11/21/23 10:09 Height 5 ft 4 in Weight 169 lb BMI 29.0 Intake Visit Reasons: OV-ORIF Lt tib plateau 11/19/22-follow up Intake Note: Jo is a 58 year old female who presents today for a ORIF Lt tib plateau 11/19/22. At her last visit she was instructed to continue activity as tolerated and continue home exercise. Patient reports that she has soreness of the harmon when she starts to walk. She does occasionally take Ibuprofen 600 mg which does help but she does not want to take this all the time. She also notices that the left leg is smaller than the right as she feels that she may have lost some muscle mass and is looking for an exercise program to help rebuild strength Allergies No Known Allergies Allergy (Verified 07/28/23 13:06) HPI HPI OV-ORIF Lt tib plateau 11/19/22-follow up: Details: Jo comes in today proximally 1 year status post ORIF left tibial plateau. She has been doing well. She does have anteromedial tibial pain with walking more than a mi on the treadmill. She has pain when she stands from a seated position and off and on throughout the day. She is unable to walk the golf course returned to her normal level of activity. [facility] Medical History Deviated septum Raynaud's disease Multinodular goiter History of breast cancer Surgical History H/O lumpectomy History of thyroidectomy, subtotal Family History Father Heart attack Sister CAD (coronary artery disease) Leukemia Diabetes mellitus Brother Substance abuse Sister Breast cancer Social History Household Members: Spouse Housing: House Do you presently have visiting nurse or other home services: No Alcohol intake: current Alcohol intake frequency: a few times a month Comment: once Q 2 weeks 3 beers Patient Tobacco Use Status: Never used Tobacco e-Cigarette/Vaping Use: Never Used Second Hand Smoke Exposure: No service: No Current occupational status: employed Cognitive needs: No Hearing needs: No Vision needs: Yes Physical Exam Vital Signs: BMI result Body Mass Index 29.0 Extrem Other: Well healed left tibial plateau medial and lateral incisions. 0-125 degrees of motion. Mild gait antalgia. Tenderness to palpation over the medial compartment and medial tibial shaft /medial hardware. Results Reviewed Results Reviewed: I personally reviewed relevant radiographs. There is medial and lateral plates with no hardware complications and healed tibial plateau fracture. Assessment & Plan Assessment & Plan (1) Post-traumatic osteoarthritis of left knee: Code(s): M17.32 - Unilateral post-traumatic osteoarthritis, left knee Category: Medical Plan: This is a 58-year-old woman with a healed tibial plateau fracture. She has posttraumatic osteoarthritis and painful hardware. She should continue exercise as tolerated with emphasis on weight building resistance activities. I suspect that there will continue to be discomfort that will be present with daily activities. (2) Left tibial fracture: Comment: Status post ORIF Dr. Chin October 2022 Code(s): S82.A - Unspecified fracture of shaft of left tibia, initial encounter for closed fracture Category: Medical Qualifiers: Encounter type: subsequent encounter Tibia location: proximal Fracture type: closed Fracture morphology: unspecified fracture morphology Fracture healing: with routine healing Qualified Code(s): S82.102D - Unspecified fracture of upper end of left tibia, subsequent encounter for closed fracture with routine healing Plan: Orders: Orders XR knee RT 1V Today M17.32 - Unilateral post-traumatic osteoarthritis, left knee XR knee LT 3V Today M25.562 - Pain in left knee Coding Level of Care Code Est Pt Level 3 (09979) Diagnoses Post-traumatic osteoarthritis of left knee M17.32 Closed fracture of proximal end of left tibia with routine healing, unspecified fracture morphology, subsequent encounter S82.102D Encounter type: subsequent encounter Tibia location: proximal Fracture type: closed Fracture morphology: unspecified fracture morphology Fracture healing: with routine healing
== END 2023-11-21 15:38 | disposition home or self-care (01) ==
PROVIDERS: PCP Internal Medicine; Visit Provider Orthopaedic Surgery
DX: M17.32 Unilateral post-traumatic osteoarthritis, left knee (principal); S82.102D Unspecified fracture of upper end of left tibia, subsequent encounter for closed fracture with routine healing
CPT/HCPCS: 99213

== ENCOUNTER 2023-11-22 09:28 | Day surgery (SDC) | payer BC, SELFPAY ==
--- NOTE | ~2023-11-22 | CT_ITS ---
EXAMINATION: CT ABDOMEN AND PELVIS WITH CONTRAST CLINICAL INFORMATION: Right lower quadrant abdominal pain COMPARISON: Abdominal ultrasound from 11/19/2023 TECHNIQUE: Multidetector volumetric images were obtained from the superior aspect of the liver through the pubic symphysis following administration 85 mL of Omnipaque 350 intravenous contrast. Sagittal and coronal reformatted images were obtained on the technologist's workstation. Oral contrast: No This CT examination was performed using dose optimization techniques as appropriate, variously including the following: *Automated exposure control *Adjustment of mA and/or kV according to patient size (this includes techniques or standardized protocols for targeted exams where dose is matched to indication/reason for exam; i.e. extremities or head) *Use of iterative reconstruction technique DLP: 711 mGy-cm FINDINGS: LUNG BASES: The visualized lung bases are unremarkable. LIVER, GALLBLADDER, AND BILIARY TREE: Liver is decreased in density consistent with hepatic steatosis. The gallbladder is unremarkable with no evidence of radiopaque gallstones, gallbladder wall thickening, or obvious pericholecystic inflammatory changes. PANCREAS: Unremarkable. SPLEEN: Unremarkable. ADRENAL GLANDS: Unremarkable. KIDNEYS AND URETERS: The kidneys are normal in size, shape, and attenuation. No hydronephrosis, hydroureter, or calculi seen. No perinephric stranding. BLADDER: Unremarkable. GASTROINTESTINAL TRACT: The small and large bowel are unremarkable. The appendix is mildly dilated measuring 1.0 cm with mild periappendiceal inflammatory stranding. ABDOMINAL WALL: No significant hernia is appreciated. LYMPH NODES: Normal. VASCULAR: Unremarkable. PELVIC VISCERA: The uterus and adnexa are unremarkable. OSSEOUS STRUCTURES: Unremarkable. CT/CT abdomen pelvis w IV con IMPRESSION: 1. Mildly dilated appendix with mild periappendiceal inflammatory stranding consistent with acute appendicitis. 2. Hepatic steatosis. This critical result was discussed with MARIA TERESA Scott at 1245 on 11/22/2023 and it was ascertained that the content and urgency of the report was understood at the time of direct communication. Electronically signed by: Kemar Miguel MD 11/22/2023 12:46 PM EDT
[2023-11-22 09:34] VITALS: BP 168/90; PULSE 97; RESP 18; TEMP 36.8; O2SAT 98; BMI 31.1
[2023-11-22 10:10] LABS: MANUAL DIFF FLAG NO
[2023-11-22 10:11] LABS: Basophils Absolute Auto 0.1 X10*3/uL (0.0-0.2); Basophils Percent Auto 0.9 % (0-2); Eosinophils Absolute Auto 0.1 X10*3/uL (0.0-0.4); Eosinophils Percent Auto 1.3 % (0-4); Hematocrit 40.2 % (37.0-47.0); Hemoglobin 13.6 g/dl (12.0-16.0); Imm Gran Abs Auto 0.01 X10*3/uL (0.00-0.03); Imm Gran Pct Auto 0.2 % (0.0-0.4); Lymphocytes Absolute Auto 1.9 X10*3/uL (1.2-4.9); Lymphocytes Percent Auto 33.2 % (20-40); Mean Corpuscular HGB Conc 33.8 g/dl (31.0-35.0); Mean Corpuscular Hemoglobin 33.4 pg (27.0-33.0); Mean Corpuscular Volume 98.8 fL (80.0-98.0); Mean Platelet Volume 8.5 fL (9.4-12.3); Monocytes Absolute Auto 0.6 X10*3/uL (0.1-1.2); Monocytes Percent Auto 10.9 % (2-11); Neutrophils Percent Auto 53.5 % (45-73); Platelet Count 453 X10*3/uL (160-400); Red Blood Count 4.07 X10*6/uL (4.20-5.50); Red Cell Distribution Width 12.3 % (11.0-16.0); White Blood Count 5.6 X10*3/uL (4.8-10.8)
[2023-11-22 10:14] LABS: Appearance Urine Clear; Color Urine Yellow; Glucose Urine UA Negative (Negative); Leukocyte Esterase Urine Negative (Negative); Nitrite Urine Negative (Negative); PH 6.5 (5.0-9.0); Specific Gravity - Urine <= 1.005 (1.005-1.025); Urine Blood Negative (Negative); Urine Ketones Negative (Negative); Urine Protein Negative (Neg-Trace)
--- NOTE | 2023-11-22 10:15 | ED.ABDPAIN ---
HPI - Abdominal Pain General Chief Complaint: Abdominal Pain Stated Complaint: abd pain Time Seen by Provider: 11/22/23 10:14 Source: patient Mode of arrival: ambulatory Limitations: no limitations History of Present Illness ED Provider: Roberto RUBIN HPI narrative: 58-year-old female history of TSH elevation, LFT elevation, away of left AC joint, anemia, osteopenia, basal cell carcinoma, hypercholesterolemia, thrombocytosis, multinodular goiter, history of breast cancer ( s/p left sided lumpectomy) presenting to the emergency department with complaints of nausea, vomiting, diarrhea and abdominal pain that started on , abdominal pain was initially in the upper abdomen and has now migrated to the right lower quadrant. Patient reports constant discomfort. No known sick contacts. She does report that on Friday she had an ultrasound of her liver due to elevated transaminases. Does not yet have results. Denies fevers, chills, chest pain, shortness of breath, blood in stool or vomit, headache, vision changes, dizziness weakness Related Data Home Medications ?Medication ?Instructions ?Recorded ?Confirmed letrozole 2.5 mg tablet 2.5 mg PO DAILY@1800 05/17/21 06/02/23 loratadine 10 mg tablet 10 mg PO DAILY 05/17/21 06/02/23 multivitamin 1 tab PO DAILY 05/23/22 06/02/23 calcium citrate 200 mg (950 mg) 600 mg PO DAILY 03/14/23 06/02/23 tablet docusate sodium 100 mg capsule 100 mg PO DAILY PRN Constipation 03/14/23 06/02/23 cholecalciferol (vitamin D3) 25 2,000 unit PO DAILY 05/29/23 06/02/23 mcg (1,000 unit) capsule glucosamine HCl 500 mg tablet 1,500 mg PO DAILY 11/21/23 Previous Rx's ?Medication ?Instructions ?Recorded walker #1 ea 11/21/22 acetaminophen 325 mg tablet 650 mg (2 x 325 mg) PO Q6H PRN 11/24/22 (Tylenol) fever or pain 30 days #240 tabs Allergies Allergy/AdvReac Type Severity Reaction Status Date / Time No Known Allergies Allergy Verified 11/22/23 09:36 Review of Systems Review of Systems Yes all other systems are reviewed and are negative PMFSH Past Medical History Attestation statement: The following information was validated with the patient. Source: old records reviewed and nursing notes reviewed Medical History Deviated septum Raynaud's disease Multinodular goiter History of breast cancer Surgical History H/O lumpectomy History of thyroidectomy, subtotal Family History Family History Father Heart attack Sister CAD (coronary artery disease) Leukemia Diabetes mellitus Brother Substance abuse Sister Breast cancer Social History Social History Household Members: Spouse Housing: House Do you presently have visiting nurse or other home services: No Alcohol intake: current Alcohol intake frequency: a few times a month Alcohol type: beer Comment: once Q 2 weeks 3 beers Patient Tobacco Use Status: Never used Tobacco Smoked in Last 30 Days: No e-Cigarette/Vaping Use: Never Used Second Hand Smoke Exposure: No Use of substances other than those prescribed or required for medical reasons: No Advance Directives: Yes Advance Directives on File: Yes Advance Directives Date on File: 11/22/23 Do you have a plan to hurt others: No Plan Patient : No service: No Current occupational status: employed Cognitive needs: No Hearing needs: No Vision needs: Yes Physical Exam ED Vital Signs: Vital Signs - 24 hr 11/22/23 09:34 Temperature 98.2 F Pulse Rate 97 Respiratory Rate 18 Blood Pressure 168/90 H Pulse Oximetry 98 Oxygen Delivery Method Room Air BMI result Body Mass Index 31.1 vss Appearance: Alert.? Oriented X3.? No acute distress.? Head: Normocephalic, atraumatic, no step-offs or deformities Eyes: Pupils equal, round and reactive to light.? CVS: Normal heart rate and rhythm.? Pulses normal.? Respiratory: No respiratory distress.? Breath sounds normal.? Abdomen: Soft and nontender.? Skin: Skin warm and dry.? Normal skin color.? Normal skin turgor.? Extremities: No lower extremity edema.? No calf ttp. 5/5 strength to bilateral upper and lower extremities Neuro: Oriented X 3.? No motor deficit.? No sensory deficit. CN 2-12 intact Course Reevaluation(s) Reevaluation #1: CBC unremarkable. Chemistry with no acute findings needing intervention. UA no infection. Flu, COVID, RSV negative. CT abdomen with mild dilation of the appendix with periappendiceal inflammatory stranding consistent with acute appendicitis hepatic steatosis noted. Will give 1 g of ceftriaxone at this time reached out to surgery who is aware of the case and will be taking patient to the operating room. Patient last ate yesterday she ate ramen noodles. Has not eaten today Time: 12:56 Reevaluation #2: Will likely be dc from OR Time: 13:01 Medical Decision Making Medical Decision Making [facility] Narrative: 1017 58 year old female presents w/ nausea, vomiting, diarrhea and RLQ abd pain since PE RLQ ttp on exam hx and pe concerning for viral illness vs appendicitis vs cholecystitis. Unlikely acute abdomen, pancreatitis, diverticulitis, obstruction, dissection. Plan labs, imaging, urine Differential Diagnosis Differential Diagnoses: The differential diagnosis associated with the presentation includes hx and pe concerning for viral illness vs appendicitis vs cholecystitis. Unlikely acute abdomen, pancreatitis, diverticulitis, obstruction, dissection. Lab Data [facility] Lab Attestation statement: I reviewed the patient's lab results. 11/22/23 10:05 11/22/23 10:05 Labs: Lab Results 11/22/23 11/22/23 Range/Units 10:05 11:15 WBC 5.6 (4.8-10.8) X10*3/uL RBC 4.07 L (4.20-5.50) X10*6/uL Hgb 13.6 (12.0-16.0) g/dl Hct 40.2 (37.0-47.0) % MCV 98.8 H (80.0-98.0) fL MCH 33.4 H (27.0-33.0) pg MCHC 33.8 (31.0-35.0) g/dl RDW 12.3 (11.0-16.0) % Plt Count 453 H (160-400) X10*3/uL MPV 8.5 L (9.4-12.3) fL Immature Gran % (Auto) 0.2 (0.0-0.4) % Neut % (Auto) 53.5 (45-73) % Lymph % (Auto) 33.2 (20-40) % Alfalfa % (Auto) 10.9 (2-11) % Eos % (Auto) 1.3 (0-4) % Baso % (Auto) 0.9 (0-2) % Lymph # (Auto) 1.9 (1.2-4.9) X10*3/uL [place]alf[place] # (Auto) 0.6 (0.1-1.2) X10*3/uL Eos # (Auto) 0.1 (0.0-0.4) X10*3/uL Baso # (Auto) 0.1 (0.0-0.2) X10*3/uL Abs Immat Gran (auto) 0.01 (0.00-0.03) X10*3/uL Absolute Neuts (auto) 3.0 (2.0-8.3) x10*3/uL Absolute Nucleated RBC 0.000 (0.0-0.012) X10*3/uL Nucleated RBC % (auto) 0.0 (0.0-0.2) /100WBC Sodium 139 (135-145) mmol/L Potassium 4.1 (3.3-5.1) mmol/L Chloride 103 (96-108) mmol/L Carbon Dioxide 26 (22-29) mmol/L Anion Gap 14 (12-20) BUN 4 L (9-16) mg/dL Creatinine 0.81 (0.5-1.4) mg/dL Estim Creat Clear Calc 78.5 Estimated GFR > 60 Random Glucose 109 (60-115) mg/dL Calcium 9.9 (8.4-10.2) mg/dL Total Bilirubin 0.6 (0.0-1.0) mg/dL Direct Bilirubin 0.2 (0.0-0.5) mg/dL AST 40 H (5-31) U/L ALT 50 H (0-31) U/L Alkaline Phosphatase 116 (39-117) U/L Total Protein 8.0 (6.5-8.0) g/dL Albumin 4.5 (3.5-5.0) g/dL Lipase 25 (8-78) U/L Urine Color Yellow Urine Appearance Clear Urine pH 6.5 (5.0-9.0) Ur Specific [place] <= 1.005 (1.005-1.025) Urine Protein Negative (Neg-Trace) mg/dL Urine Glucose (UA) Negative (Negative) mg/dL Urine Ketones Negative (Negative) mg/dL Urine Blood Negative (Negative) Urine Nitrite Negative (Negative) Ur Leukocyte Esterase Negative (Negative) Influenza Type A (PCR) NEGATIVE (Negative) Influenza Type B (PCR) NEGATIVE (Negative) RSV RNA Qual (PCR) NEGATIVE (Negative) SARS-CoV-2 RNA (RT-PCR) NEGATIVE (Negative) Independent Interpretation I performed an independent interpretation of an: CT Scan Radiology Impression Discussion of test interpretation with radiology: I have reviewed the radiologist's reading. Medications Administered Discontinued Medications Generic Name Dose Route Start Last Admin Trade Name Freq PRN Reason Stop Dose Admin Iohexol 85 ml 11/22/23 11:52 11/22/23 11:52 Iohexol 350 Mg/Ml 100 Ml Infus..Btl IV 11/22/23 11:53 85 ml ONCE ONE Administration Critical Care Time Critical Care Time Critical Care Time: Yes Total Critical Care Time: 35 Attestation: I attest to this time spent taking care of the patient, obtaining history, physical, reviewing labs, imaging, treatment of patients condition +/- specialist/hospitalist consult Discharge Plan Discharge Clinical Impression: Acute appendicitis Patient Disposition: Still a Patient Prescriptions: No Action (DME) [facility] [place] See Rx Instructions .ROUTE .MEDSUPPLY Qty: 1 0RF Rx Instructions: Folding front wheeled walker acetaminophen [Tylenol] 325 mg tablet 650 mg PO Q6H PRN (Reason: fever or pain) 30 Days Qty: 240 0RF letrozole 2.5 mg tablet 2.5 mg PO DAILY@1800 loratadine 10 mg tablet 10 mg PO DAILY cholecalciferol (vitamin D3) 25 mcg (1,000 unit) capsule 2,000 unit PO DAILY multivitamin Tablet 1 tab PO DAILY docusate sodium 100 mg capsule 100 mg PO DAILY PRN (Reason: Constipation) calcium citrate 200 mg (950 mg) tablet 600 mg PO DAILY glucosamine HCl 500 mg tablet 1,500 mg PO DAILY Rx Instructions: administer with a meal Print Language: Lithuanian
[2023-11-22 10:30] LABS: Alanine Aminotransferase 50 U/L (0-31); Albumin Level 4.5 g/dL (3.5-5.0); Alkaline Phosphatase 116 U/L (39-117); Anion Gap 14 (12-20); Aspartate Amino Transferase 40 U/L (5-31); Bilirubin Direct 0.2 mg/dL (0.0-0.5); Bilirubin Total 0.6 mg/dL (0.0-1.0); Blood Urea Nitrogen 4 mg/dL (9-16); Calcium 9.9 mg/dL (8.4-10.2); Carbon Dioxide 26 mmol/L (22-29); Chloride 103 mmol/L (96-108); Creatinine Clr Calc Pharmacy 78.5; Estimated Glomerular Filt Rate > 60; Glucose Random 109 mg/dL (60-115); Lipase 25 U/L (8-78); Potassium 4.1 mmol/L (3.3-5.1); Sodium 139 mmol/L (135-145)
[2023-11-22] MEDS: iohexoL 350 MG/ML 100 ML INFUS..BTL 85 ML IV (11:52)
[2023-11-22 12:06] LABS: Influenza A PCR NEGATIVE (Negative); Influenza B PCR NEGATIVE (Negative); Resp Syncy Virus RNA Qual PCR NEGATIVE (Negative); SARS COV2 PCR INHOUSE NEGATIVE (Negative)
[2023-11-22] MEDS: cefTRIAXone sodium 1 GM in 0.9 % Sodium Chloride 50 ML IV (13:09)
--- NOTE | 2023-11-22 13:20 | PM.HPGS ---
History of Present Illness History of Present Illness Date of Service: 11/22/23 Chief complaint: Abdominal Pain Narrative: Jo Smith is a 58 year old female , relatively healthy, who presented initially with epigastric complaints which progressed to right lower quadrant pain over the last day or so. She has never had this before. She has history of irritable bowel syndrome but this is very different from that which usually causes her diarrhea. Patient otherwise denies any sick contacts. She has not had any unusual diet. She has no recent foreign no new meds. Past surgical history partial thyroidectomy, lumpectomy breast x2 with axillary lymph node surgery. No prior abdominal surgeries. Chart was reviewed and patient evaluated PMFSH Past Medical History Medical History Deviated septum Raynaud's disease Multinodular goiter History of breast cancer Family History Family History Father Heart attack Sister CAD (coronary artery disease) Leukemia Diabetes mellitus Brother Substance abuse Sister Breast cancer Surgical History Surgical History H/O lumpectomy History of thyroidectomy, subtotal Social History Social History Household Members: Spouse Housing: House Do you presently have visiting nurse or other home services: No Alcohol intake: current Alcohol intake frequency: a few times a month Alcohol type: beer Comment: once Q 2 weeks 3 beerk[place]ney Patient Tobacco Use Status: Never used Tobacco Smoked in Last 30 Days: No e-Cigarette/Vaping Use: Never Used Second Hand Smoke Exposure: No Use of substances other than those prescribed or required for medical reasons: No Advance Directives: Yes Advance Directives on File: Yes Advance Directives Date on File: 11/22/23 Do you have a plan to hurt others: No Plan Patient : No service: No Current occupational status: employed Cognitive needs: No Hearing needs: No Vision needs: Yes Meds Allergies Allergy/AdvReac Type Severity Reaction Status Date / Time No Known Allergies Allergy Verified 11/22/23 09:36 Home Medications ?Medication ?Instructions ?Recorded ?Confirmed ?Last Taken ?Type letrozole 2.5 mg tablet 2.5 mg PO DAILY@1800 05/17/21 06/02/23 06/02/23 History loratadine 10 mg tablet 10 mg PO DAILY 05/17/21 06/02/23 06/02/23 History multivitamin 1 tab PO DAILY 05/23/22 06/02/23 11/19/22 History calcium citrate 200 mg (950 mg) 600 mg PO DAILY 03/14/23 06/02/23 Unknown History tablet docusate sodium 100 mg capsule 100 mg PO DAILY PRN Constipation 03/14/23 06/02/23 Unknown History cholecalciferol (vitamin D3) 25 2,000 unit PO DAILY 05/29/23 06/02/23 Unknown History mcg (1,000 unit) capsule glucosamine HCl 500 mg tablet 1,500 mg PO DAILY 11/21/23 Unknown History Physical Exam Vital Signs: Vital Signs: Last Vital Signs Temp 98.2 F 11/22/23 09:34 Pulse 97 11/22/23 09:34 Resp 18 11/22/23 09:34 BP 168/90 H 11/22/23 09:34 Pulse Ox 98 11/22/23 09:34 O2 Del Method Room Air 11/22/23 09:34 BMI result Body Mass Index 31.1 Chest: Other: Chest breath sounds bilaterally, HS 1 in 2 GI: Other: Moderately corpulent abdomen. Marked right lower quadrant localized rebound tenderness. No evidence of any guarding, diffuse rebound, or rigidity Results Results Labs: Short CBC 11/22/23 Range/Units 10:05 WBC 5.6 (4.8-10.8) X10*3/uL Hgb 13.6 (12.0-16.0) g/dl Hct 40.2 (37.0-47.0) % Plt Count 453 H (160-400) X10*3/uL BMP 11/22/23 10:05 Sodium 139 Potassium 4.1 Chloride 103 Carbon Dioxide 26 BUN 4 L Creatinine 0.81 Calcium 9.9 Liver Function 11/22/23 Range/Units 10:05 Total Bilirubin 0.6 (0.0-1.0) mg/dL Direct Bilirubin 0.2 (0.0-0.5) mg/dL AST 40 H (5-31) U/L ALT 50 H (0-31) U/L Alkaline Phosphatase 116 (39-117) U/L Albumin 4.5 (3.5-5.0) g/dL Urine 11/22/23 Range/Units 10:05 Urine Color Yellow Urine Appearance Clear Urine pH 6.5 (5.0-9.0) Ur Specific [place] <= 1.005 (1.005-1.025) Urine Protein Negative (Neg-Trace) mg/dL Urine Glucose (UA) Negative (Negative) mg/dL Assessment and Plan (1) Acute appendicitis: Status: Acute Plan Clinical and CT scan findings consistent with early appendicitis. Risks, benefits, alternatives laparoscopic possible open cholecystectomy reviewed with the patient and included but not limited to bleeding, infection, numbness, pain, scarring, bowel or bladder injury and the patient wishes to proceed. All questions answered. Patient will be made at all for today. Quality Stroke Does the patient have a stroke diagnosis?: No VTE Prior VTE?: No VTE Risk Level:: Surgical - low VTE Device Contraindication: N/A - Device Ordered VTE Drug Contraindication: Treatment Not Indicated Procedures Date of Service Date of Service: 11/22/23
--- NOTE | 2023-11-22 14:20 | HO.ANESPROP2 ---
HPI - Anesthesia Eval Consult details Narrative: Acute appendicitis PMFSH Active Problems Active Problems: All Active Problems Acute appendicitis (Acute) TSH elevation (Acute) LFT elevation (Acute) Tendonitis of left rotator cuff (Acute) Osteoarthritis of left acromioclavicular joint (Acute) Post-traumatic osteoarthritis of left knee (Acute) Anemia (Acute) Ulnar neuropathy at elbow of right upper extremity (Acute) Osteopenia (Acute) Left tibial fracture (Acute) Colon cancer screening (Acute) Respiratory tract congestion with cough (Acute) Basal cell carcinoma (Acute) Macrocytosis (Acute) Thrombocytosis (Acute) Hypercholesterolemia (Acute) Allergy (Acute) Peripheral vascular disease (Acute) Blood pressure elevated without history of HTN (Acute) History of breast cancer (Acute) Multinodular goiter (Acute) Annual physical exam (Acute) Past Medical History Medical History Deviated septum Raynaud's disease Multinodular goiter History of breast cancer Family History Family History Father Heart attack Sister CAD (coronary artery disease) Leukemia Diabetes mellitus Brother Substance abuse Sister Breast cancer Family history of problems with anesthesia: No Surgical History Surgical History H/O lumpectomy History of thyroidectomy, subtotal History of Problems with Anesthesia: No Social History Social History Household Members: Spouse Housing: House Do you presently have visiting nurse or other home services: No Alcohol intake: current Alcohol intake frequency: a few times a month Alcohol type: beer Comment: once Q 2 weeks 3 tony Patient Tobacco Use Status: Never used Tobacco e-Cigarette/Vaping Use: Never Used Second Hand Smoke Exposure: No Advance Directives Date on File: 11/22/23 service: No Current occupational status: employed Cognitive needs: No Hearing needs: No Vision needs: Yes Meds Allergies Allergy/AdvReac Type Severity Reaction Status Date / Time No Known Allergies Allergy Verified 11/22/23 09:36 Home Medications ?Medication ?Instructions ?Recorded ?Confirmed ?Last Taken ?Type letrozole 2.5 mg tablet 2.5 mg PO DAILY@1800 05/17/21 06/02/23 06/02/23 History loratadine 10 mg tablet 10 mg PO DAILY 05/17/21 06/02/23 06/02/23 History multivitamin 1 tab PO DAILY 05/23/22 06/02/23 11/19/22 History calcium citrate 200 mg (950 mg) 600 mg PO DAILY 03/14/23 06/02/23 Unknown History tablet docusate sodium 100 mg capsule 100 mg PO DAILY PRN Constipation 03/14/23 06/02/23 Unknown History cholecalciferol (vitamin D3) 25 2,000 unit PO DAILY 05/29/23 06/02/23 Unknown History mcg (1,000 unit) capsule glucosamine HCl 500 mg tablet 1,500 mg PO DAILY 11/21/23 Unknown History Exam Height,Weight and Vital Signs: Height 5 ft 4 in Weight 82.1 kg Last Vital Signs Temp 98.2 F 11/22/23 09:34 Pulse 97 11/22/23 09:34 Resp 18 11/22/23 09:34 BP 168/90 H 11/22/23 09:34 Pulse Ox 98 11/22/23 09:34 O2 Del Method Room Air 11/22/23 09:34 Pertinent Lab Results Pertinent Lab Results: Laboratory Tests 11/22/23 11/22/23 10:05 11:15 WBC 5.6 RBC 4.07 L Hgb 13.6 Hct 40.2 MCV 98.8 H MCH 33.4 H MCHC 33.8 RDW 12.3 Plt Count 453 H MPV 8.5 L Immature Gran % (Auto) 0.2 Neut % (Auto) 53.5 Lymph % (Auto) 33.2 [place] % (Auto) 10.9 Eos % (Auto) 1.3 Baso % (Auto) 0.9 Lymph # (Auto) 1.9 [place] # (Auto) 0.6 Eos # (Auto) 0.1 Baso # (Auto) 0.1 Abs Immat Gran (auto) 0.01 Absolute Neuts (auto) 3.0 Absolute Nucleated RBC 0.000 Nucleated RBC % (auto) 0.0 Sodium 139 Potassium 4.1 Chloride 103 Carbon Dioxide 26 Anion Gap 14 BUN 4 L Creatinine 0.81 Estim Creat Clear Calc 78.5 Estimated GFR > 60 Random Glucose 109 Calcium 9.9 Total Bilirubin 0.6 Direct Bilirubin 0.2 AST 40 H ALT 50 H Alkaline Phosphatase 116 Total Protein 8.0 Albumin 4.5 Lipase 25 Urine Color Yellow Urine Appearance Clear Urine pH 6.5 Ur Specific [place] <= 1.005 Urine Protein Negative Urine Glucose (UA) Negative Urine Ketones Negative Urine Blood Negative Urine Nitrite Negative Ur Leukocyte Esterase Negative Influenza Type A (PCR) NEGATIVE Influenza Type B (PCR) NEGATIVE RSV RNA Qual (PCR) NEGATIVE SARS-CoV-2 RNA (RT-PCR) NEGATIVE Airway Mallampati Class: II TM Dist: >3cm Neck ROM: Full Loose/Missing/Broken Teeth: No Heart: RRR Lungs: CTA Assessment and Plan Assessment Anesthesia Assessment: Anesthesia Plan Discussed and Chart Reviewed Final Anesthetic Review Family History of Problems with Anesthesia: No History of Problems with Anesthesia: No NPO: Yes ASA Class: II and Emergency Final Preanesthetic Review: No Changes in Pt Med Stat, Meds/Allgs Chart Reviewed, Consent Obtained/Reviewed and Anes Risks/Benef Reviewed Patient Risk: Intermediate Procedure Risk: Intermediate Anesthetic Plan Anesthetic Plan: GA Disposition: Standard PACU
[2023-11-22 15:15] VITALS: BP 155/74; PULSE 92; RESP 18; TEMP 36.1; O2SAT 98
[2023-11-22 15:20] VITALS: BP 158/75; PULSE 91; RESP 18; O2SAT 97
--- NOTE | 2023-11-22 15:21 | P.OP_ITS ---
Operative Note Operative Note Date of Service: 11/22/23 Narrative: Preoperative diagnosis: [] Acute appendicitis Postop diagnosis: [] The same Procedure [] laparoscopic appendectomy Surgeon: [] Manjeet Stained Glass Window Designer: [] Type of Anesthesia: [] General Indication for surgery: [] Edematous inflamed appendix. No gross evidence of perforation. Moderately corpulent abdomen. Findings: [] Patient brought to the operating room, placed on operative table in supine position, after an adequate level of general anesthesia was induced, the patient's abdomen was prepped and draped in usual sterile fashion. Using a supraumbilical curvilinear incision, Moseley technique was used to insufflate abdominal cavity to 15 mm of CO2. Lower midline and suprapubic ports were placed under direct laparoscopic view, and the patient placed in Trendelenburg position, and tilted to the left. Findings were as noted above. Appendix was grasped and brought onto the field. It is mesentery sequentially taken down using double firing of ligature device. Appendix was then transected the cecal base using endoscopic FARHAT stapler. Specimen was placed in an Endo-Catch bag, a retrieved through the umbilical port. Abdominal cavity was very copiously irrigated secured hemostasis. Ports removed under direct laparoscopic view. Wounds were closed in the following manner; umbilical wound is fascia reapproximated using interrupted 0 Vicryl sutures. Skin wounds were closed using subcuticular 4-0 Vicryl sutures followed by Steri- Strips and sterile dressings. Wounds were infiltrated 0.5% Marcaine at completion. Sponge, needle, and instrument counts reported correct. Patient tolerated the procedure well and emerged from anesthesia stable condition. EBL minimal
[2023-11-22 15:25] VITALS: BP 156/82; PULSE 83; RESP 18; O2SAT 98
--- NOTE | 2023-11-22 15:27 | P.CONAN_ITS ---
HPI - Anesthesia Eval Consult details Narrative: acute appendicitis PMFSH Active Problems Active Problems: All Active Problems Acute appendicitis (Acute) TSH elevation (Acute) LFT elevation (Acute) Tendonitis of left rotator cuff (Acute) Osteoarthritis of left acromioclavicular joint (Acute) Post-traumatic osteoarthritis of left knee (Acute) Anemia (Acute) Ulnar neuropathy at elbow of right upper extremity (Acute) Osteopenia (Acute) Left tibial fracture (Acute) Colon cancer screening (Acute) Respiratory tract congestion with cough (Acute) Basal cell carcinoma (Acute) Macrocytosis (Acute) Thrombocytosis (Acute) Hypercholesterolemia (Acute) Allergy (Acute) Peripheral vascular disease (Acute) Blood pressure elevated without history of HTN (Acute) History of breast cancer (Acute) Multinodular goiter (Acute) Annual physical exam (Acute) Past Medical History Medical History Deviated septum Raynaud's disease Multinodular goiter History of breast cancer Family History Family History Father Heart attack Sister CAD (coronary artery disease) Leukemia Diabetes mellitus Brother Substance abuse Sister Breast cancer Family history of problems with anesthesia: No Surgical History Surgical History H/O lumpectomy History of thyroidectomy, subtotal History of Problems with Anesthesia: No Social History Social History Household Members: Spouse Housing: House Do you presently have visiting nurse or other home services: No Alcohol intake: current Alcohol intake frequency: a few times a month Alcohol type: beer Comment: once Q 2 weeks 3 tony Patient Tobacco Use Status: Never used Tobacco e-Cigarette/Vaping Use: Never Used Second Hand Smoke Exposure: No Advance Directives Date on File: 11/22/23 service: No Current occupational status: employed Cognitive needs: No Hearing needs: No Vision needs: Yes Meds Allergies Allergy/AdvReac Type Severity Reaction Status Date / Time No Known Allergies Allergy Verified 11/22/23 09:36 Active Medications: Current Medications Droperidol (Droperidol 5 Mg/2 Ml Vial) 0.625 mg IVPUSH ONCE PRN PRN Reason: intractable nausea Stop: 11/22/23 20:21 Fentanyl (Fentanyl Citrate/Pf 100 Mcg/2 Ml Vial) 50 mcg IVPUSH Q5M PRN PRN Reason: Pain, Moderate to Severe (Pain Scale 4-10) Stop: 11/22/23 20:20 Hydromorphone HCl (Hydromorphone Hcl 0.5 Mg/0.5 Ml Syringe) 0.5 mg IVPUSH Q5M PRN PRN Reason: Pain, Severe (Pain Scale 7-10) Stop: 11/22/23 20:20 Home Medications ?Medication ?Instructions ?Recorded ?Confirmed ?Last Taken ?Type letrozole 2.5 mg tablet 2.5 mg PO DAILY@1800 05/17/21 06/02/23 06/02/23 History loratadine 10 mg tablet 10 mg PO DAILY 05/17/21 06/02/23 06/02/23 History multivitamin 1 tab PO DAILY 05/23/22 06/02/23 11/19/22 History calcium citrate 200 mg (950 mg) 600 mg PO DAILY 03/14/23 06/02/23 Unknown History tablet docusate sodium 100 mg capsule 100 mg PO DAILY PRN Constipation 03/14/2307/22 Unknown History cholecalciferol (vitamin D3) 25 2,000 unit PO DAILY 05/29/23 06/02/23 Unknown History mcg (1,000 unit) capsule glucosamine HCl 500 mg tablet 1,500 mg PO DAILY 11/21/23 Unknown History Exam Height,Weight and Vital Signs: Height 5 ft 4 in Weight 82.1 kg Last Vital Signs Temp 97 F 11/22/23 15:15 Pulse 91 11/22/23 15:20 Resp 18 11/22/23 15:20 BP 158/75 H 11/22/23 15:20 Pulse Ox 97 11/22/23 15:20 O2 Del Method Room Air 11/22/23 15:20 Pertinent Lab Results Pertinent Lab Results: Laboratory Tests 11/22/23 11/22/23 10:05 11:15 WBC 5.6 RBC 4.07 L Hgb 13.6 Hct 40.2 MCV 98.8 H MCH 33.4 H MCHC 33.8 RDW 12.3 Plt Count 453 H MPV 8.5 L Immature Gran % (Auto) 0.2 Neut % (Auto) 53.5 Lymph % (Auto) 33.2 [place] % (Auto) 10.9 Eos % (Auto) 1.3 Baso % (Auto) 0.9 Lymph # (Auto) 1.9 [place] # (Auto) 0.6 Eos # (Auto) 0.1 Baso # (Auto) 0.1 Abs Immat Gran (auto) 0.01 Absolute Neuts (auto) 3.0 Absolute Nucleated RBC 0.000 Nucleated RBC % (auto) 0.0 Sodium 139 Potassium 4.1 Chloride 103 Carbon Dioxide 26 Anion Gap 14 BUN 4 L Creatinine 0.81 Estim Creat Clear Calc 78.5 Estimated GFR > 60 Random Glucose 109 Calcium 9.9 Total Bilirubin 0.6 Direct Bilirubin 0.2 AST 40 H ALT 50 H Alkaline Phosphatase 116 Total Protein 8.0 Albumin 4.5 Lipase 25 Urine Color Yellow Urine Appearance Clear Urine pH 6.5 Ur Specific [place] <= 1.005 Urine Protein Negative Urine Glucose (UA) Negative Urine Ketones Negative Urine Blood Negative Urine Nitrite Negative Ur Leukocyte Esterase Negative Influenza Type A (PCR) NEGATIVE Influenza Type B (PCR) NEGATIVE RSV RNA Qual (PCR) NEGATIVE SARS-CoV-2 RNA (RT-PCR) NEGATIVE Airway Mallampati Class: II TM Dist: >3cm Neck ROM: Full Heart: RRR Lungs: CTA Assessment and Plan Assessment Anesthesia Assessment: Anesthesia Plan Discussed and Chart Reviewed Final Anesthetic Review Family History of Problems with Anesthesia: No History of Problems with Anesthesia: No NPO: Yes ASA Class: II Final Preanesthetic Review: No Changes in Pt Med Stat, Meds/Allgs Chart Reviewed and Consent Obtained/Reviewed Patient Risk: Intermediate Procedure Risk: Intermediate Anesthetic Plan Anesthetic Plan: GA Disposition: Standard PACU
[2023-11-22 15:30] VITALS: BP 155/81; PULSE 78; RESP 16; O2SAT 99
[2023-11-22 15:45] VITALS: BP 159/74; PULSE 77; RESP 16; TEMP 36.1; O2SAT 97
--- NOTE | 2023-11-23 14:55 | HO.POSTANES ---
Post Anesthesia Evaluation Post Anesthesia Evaluation Date of Service: 11/23/23 Anesthesia: General Endotracheal-GETA Mental Status: Awake Pain Control: Satisfactory Nausea/Vomiting: None Hydration: Adequate Anesthesia-Related Issues: No Anes. Related Issues
== END 2023-11-22 15:46 | disposition home or self-care (01) ==
LOC: HO.ED 12:56 → HO.SSS 13:03
PROVIDERS: Physician Assistant; Emergency Provider Emergency Medicine; PCP Internal Medicine; Visit Provider Surgery
PROC: 0DTJ4ZZ Resection of Appendix, Percutaneous Endoscopic Approach (ICD-10-PCS; CPT 44970; principal; 2023-11-22 14:00)
DX: K35.890 Other acute appendicitis without perforation or gangrene (principal); Z03.818 Encounter for observation for suspected exposure to other biological agents ruled out; K76.0 Fatty (change of) liver, not elsewhere classified; E78.00 Pure hypercholesterolemia, unspecified; Z85.3 Personal history of malignant neoplasm of breast; Z79.899 Other long term (current) drug therapy
CPT/HCPCS: 44970; 0241U; 36415; 74177; 80048; 80076; 81003; 83690; 85025; 88304; 96374; 99284; 99285; J0696; J1100; J2250; J2405; J2704; J2795; J3010; Q9967

== ENCOUNTER → 2023-11-22 13:00 | Outpatient (BNV) | payer BC, SELFPAY | PROVIDERS: Emergency Provider Emergency Medicine; PCP Internal Medicine; Visit Provider Surgery | DX: K35.80 Unspecified acute appendicitis (principal) | CPT/HCPCS: 44970; 99285 ==

== ENCOUNTER 2023-11-25 15:58 | Outpatient (AMB) | payer BC, SELFPAY ==
[2023-11-25 15:59] VITALS: BP 142/72; PULSE 96; O2SAT 97
--- NOTE | 2023-11-25 15:59 | A.OFFPC_ITS ---
Vital Signs 3 11/25/23 15:59 Height 5 ft 4 in Weight 175 lb BMI 30.0 BP 142/72 H Blood Pressure Location Lt brachial Position Sitting Pulse 96 Pulse Source Pulse Oximeter Pulse Oximetry (%) 97 Oxygen Delivery Method Room Air Intake Visit Reasons: cholesterol Tawer Required: No Accompanied by: Self / Same As Patient Allergies No Known Allergies Allergy (Verified 11/25/23 16:01) Tobacco use date assessed: 05/29/23 Dental Screening Dental Screen Date: 05/29/23 HPI cholesterol 2 HPI0 Details 58-year-old obese female with a history of breast cancer (status post left-sided lumpectomy) goiter hypercholesterolemia. Last seen in 05/20/2023. Patient is up-to-date with mammogram and breast MRI up-to-date with colonoscopy May 2023 up-to-date with bone density. Review of the notes in November 21 was in the hospital nausea vomiting diarrhea and abdominal pain. Diagnosis of appendicitis. Had laparoscopic appendectomy same day with Dr. Burroughs patient had an ultrasound of the liver also showing hepatomegaly with markedly increased hepatic echogenicity in the setting of hepatic steatosis no gallbladder stones. Patient also follows up with orthopedics having left shoulder pain that is started of 5 months while using the crutches x-ray requested showing mild degenerative changes left acromioclavicular joint diagnosis of osteoarthritis and tendonitis of the left rotator cuff. Patient also had ultrasound of the thyroid in June left thyroid nodule 1 x 0.6 x 1.3 0.9 x 0.7 x 0.8 and 1.1 x 0.6 x 0.9 continue surveillance recommended. Patient also had colonoscopy done in 06/18/2023 colon polyps noted advised to repeat 5 years. Had sessile serrated polyp x2. BP good . left leg pain but has been walking . PAtient continues to ahve prblem with L leg and concern on any job. cannot stand for long time and cannot sit for a long time. PAtient has limited movement now with the L leg pain. [facility] Medical History (Updated 11/25/23 @ 16:30 by Capri Souza MD) Colon cancer screening Deviated septum Raynaud's disease Multinodular goiter History of breast cancer Surgical History H/O lumpectomy History of thyroidectomy, subtotal Family History Father Heart attack Sister CAD (coronary artery disease) Leukemia Diabetes mellitus Brother Substance abuse Sister Breast cancer Social History Household Members: Spouse Housing: House Do you presently have visiting nurse or other home services: No Alcohol intake: current Alcohol intake frequency: a few times a month Alcohol type: beer Comment: once Q 2 weeks 3 beers Patient Tobacco Use Status: Never used Tobacco Tobacco use type: Cigarette e-Cigarette/Vaping Use: Never Used Second Hand Smoke Exposure: No Advance Directives Date on File: 11/22/23 service: No Current occupational status: employed Cognitive needs: No Hearing needs: No Vision needs: Yes Questionnaire PHQ-9 Over the last 2 weeks, how often have you been bothered by any of the following problems? 1. Little interest or pleasure in doing things: not at all 2. Feeling down, depressed, or hopeless: not at all 3. Trouble falling or staying asleep, or sleeping too much: not at all 4. Feeling tired or having little energy: not at all 5. Poor appetite or overeating: not at all 6. Feeling bad about yourself - or that you are a failure or have let yourself or your family down: not at all 7. Trouble concentrating on things, such as reading the newspaper or watching television: not at all 8. Moving or speaking so slowly that other people could have noticed. Or the opposite - being so fidgety or restless that you have been moving around a lot more than usual: not at all 9. Thoughts that you would be better off or of hurting yourself in some way: not at all Total score: 0 Depression Screening Interpretation: Negative Depression Screening Done: Yes Source: Developed by Drs. Jalen Mcintyre, Annemarie Knott, Lan Vaughan and colleagues, with an educational ganesh from [employer] Thrive Questionnaire Date Thrive assessed: 05/29/23 AUDIT C Alcohol Use Questionnaire (AUDIT-C) 1. How often do you have a drink containing alcohol?: Monthly or less 2. How many drinks containing alcohol do you have on a typical day when you are drinking?: 1 or 2 3. How often do you have six or more drinks on one occasion?: Never Total Score: 1 DUSTIN-7 AMB Questionnaire DUSTIN-7 Date DUSTIN - 7 assessed: 05/29/23 Source: Developed by Drs. Jalen Mcintyre, Annemarie Knott, Lan Vaughan and colleagues, with an educational ganesh from [employer] Physical exam (Primary Care) Vital Signs: Last Vital Signs Pulse 96 11/25/23 15:59 BP 142/72 H 11/25/23 15:59 Pulse Ox 97 11/25/23 15:59 Oxygen Delivery Method Room Air 11/25/23 15:59 BMI result Body Mass Index 30.0 Tobacco/Smoking Status: Tobacco use Status Tobacco use date assessed 05/29/23 11/25/23 16:06 Patient Tobacco Use Status Never used Tobacco 11/25/23 16:06 Tobacco use type Cigarette 11/25/23 16:06 e-Cigarette/Vaping Use Never Used 11/25/23 16:06 PHQ-9: PHQ-9 Score PHQ-9: Total score 0 11/25/23 16:06 Depression Screening Interpretation: Negative Thrive Assessment: Date of Thrive Assessment Date Thrive assessed 05/29/23 11/25/23 16:06 Const General: alert; No acute distress Eyes Conjunctivae: conjunctivae normal Resp Auscultation: clear to auscultation bilaterally Cardio Rate: regular rate Rhythm: regular rhythm GI Other: Mild tenderness on the abdomen but no guarding and no rebound. Abdomen image: 2 1. incisional scar from lap sumaya x 3 2. 3. Extrem Other: Patient has an antalgic gait Assessment and Plan Assessment & Plan (1) Acute appendicitis: Comment: November 22 2023 status post laparoscopic appendectomy Dr. Burroughs Code(s): K35.80 - Unspecified acute appendicitis Plan: Status post laparoscopic appendectomy (2) TSH elevation: Code(s): R79.89 - Other specified abnormal findings of blood chemistry Plan: Will continue to monitor thyroid (3) Hepatic steatosis: Code(s): K76.0 - Fatty (change of) liver, not elsewhere classified Plan: Low-fat diet and exercise (4) History of breast cancer: Comment: Dr. Juliet Odom October 2014 Code(s): Z85.3 - Personal history of malignant neoplasm of breast Plan: Continue to have mammograms and MRIs of the breast done (5) Multinodular goiter: Comment: Thyroid nodule follicular adenoma right thyroidectomy Dr. Lisa Phelan 2018 Code(s): E04.2 - Nontoxic multinodular goiter Plan: June 2023 continue yearly surveillance of thyroid nodules (6) Hypercholesterolemia: Code(s): E78.00 - Pure hypercholesterolemia, unspecified Plan: Avoid fried foods, chicken skin, eggs, butter margarine, pastries and meat. Be it pork or beef they have a lot of cholesterol LDL goal of less than 130 and triglyceride of less than 150. Orders: Orders 2 Comprehensive Met. Panel 6 Months K76.0 - Fatty (change of) liver, not elsewhere classified Thyroid Stimulating Hormone 6 Months K76.0 - Fatty (change of) liver, not elsewhere classified Vitamin B12 and Folate 6 Months K76.0 - Fatty (change of) liver, not elsewhere classified Complete Blood Count Auto Diff 6 Months K76.0 - Fatty (change of) liver, not elsewhere classified Free T4 (Free Thyroxine) 6 Months K76.0 - Fatty (change of) liver, not elsewhere classified Lipid Panel 6 Months E78.00 - Pure hypercholesterolemia, unspecified, K76.0 - Fatty (change of) liver, not elsewhere classified Coding Level of Care Code Est Pt Level 4 (46986) Diagnoses Acute appendicitis K35.80 TSH elevation R79.89 Hepatic steatosis K76.0 History of breast cancer Z85.3 Multinodular goiter E04.2 Hypercholesterolemia E78.00
== END 2023-11-25 16:54 | disposition home or self-care (01) ==
PROVIDERS: PCP Internal Medicine; Visit Provider Internal Medicine
DX: K35.80 Unspecified acute appendicitis (principal); R79.89 Other specified abnormal findings of blood chemistry; K76.0 Fatty (change of) liver, not elsewhere classified; Z85.3 Personal history of malignant neoplasm of breast; E04.2 Nontoxic multinodular goiter; E78.00 Pure hypercholesterolemia, unspecified
CPT/HCPCS: 99214

== ENCOUNTER 2023-12-09 08:46 | Outpatient (AMB) | payer BC, SELFPAY ==
--- NOTE | 2023-12-09 08:51 | MHC.OFFVIS ---
Vital Signs 12/09/23 08:55 Height 5 ft 4 in Weight 181 lb BMI 31.1 Intake Visit Reasons: s/p lap appy Intake Note: Patient here s/p lap appy on 11-22-23. Reports incision healing well. Patient c/o: reports no complaints pertaining to surgery. Ruby Software Developer Required: No Accompanied by: Self / Same As Patient Allergies No Known Allergies Allergy (Verified 12/09/23 08:56) HPI Comments Details: Patient is roughly Two weeks status post op status post laparoscopic appendectomy. She went on vacation and now presents for follow-up. She is doing quite well. Starting a diet. Having regular bowel habits. She has no incisional discomfort. She is increasing her activity level. [facility] Medical History Colon cancer screening Deviated septum Raynaud's disease Multinodular goiter History of breast cancer Surgical History History of laparoscopic appendectomy (11/22/23) H/O lumpectomy History of thyroidectomy, subtotal Family History Father Heart attack Sister CAD (coronary artery disease) Leukemia Diabetes mellitus Brother Substance abuse Sister Breast cancer Social History Household Members: Spouse Housing: House Do you presently have visiting nurse or other home services: No Alcohol intake: current Alcohol intake frequency: a few times a month Alcohol type: beer Comment: once Q 2 weeks 3 tony Patient Tobacco Use Status: Never used Tobacco Tobacco use type: Cigarette e-Cigarette/Vaping Use: Never Used Second Hand Smoke Exposure: No Advance Directives Date on File: 11/22/23 service: No Current occupational status: employed Cognitive needs: No Hearing needs: No Vision needs: Yes Physical Exam Vital Signs: BMI result Body Mass Index 31.1 GI Other: Abdomen is soft. Incisions all well healed Assessment & Plan Assessment & Plan (1) Postop check: Code(s): Z09 - Encounter for follow-up examination after completed treatment for conditions other than malignant neoplasm Category: Surgical (2) Status post laparoscopic appendectomy: Code(s): Z90.49 - Acquired absence of other specified parts of digestive tract Category: Surgical Plan Patient has been given local instructions, and avoiding strenuous activities for next few weeks time, and otherwise follow-up p.r.n.. All questions answered. Coding Level of Care Code Global (88769) Diagnoses Postop check Z09 Status post laparoscopic appendectomy Z90.49
[2023-12-09 08:55] VITALS: BMI 31.1
== END 2023-12-09 09:11 | disposition home or self-care (01) ==
PROVIDERS: PCP Internal Medicine; Visit Provider Surgery
DX: Z09 Encounter for follow-up examination after completed treatment for conditions other than malignant neoplasm (principal); Z90.49 Acquired absence of other specified parts of digestive tract
CPT/HCPCS: 99024

== ENCOUNTER → 2023-12-09 08:46 | Outpatient (BNVA) | payer BC, SELFPAY | PROVIDERS: PCP Internal Medicine; Visit Provider Surgery ==

== ENCOUNTER 2024-06-21 13:43 | Outpatient (REF) | payer BC, SELFPAY | END 2024-06-21 13:44 | disposition home or self-care (01) | LOC: HO.HOSX 13:43 | PROVIDERS: PCP Internal Medicine; Visit Provider Orthopaedic Surgery | DX: Z13.89 Encounter for screening for other disorder (principal) ==

== ENCOUNTER 2024-06-21 13:43 | Outpatient (AMB) | payer BC, SELFPAY ==
[2024-06-21 13:48] VITALS: BMI 31.1
--- NOTE | 2024-06-21 13:48 | MHC.OFFVIS ---
Vital Signs 06/21/24 13:48 Height 5 ft 4 in Weight 181 lb BMI 31.1 Intake Visit Reasons: OV-ORIF Lt tib plateau 11/19/22-follow up Intake Note: Jo is a 58 year old female who presents today for a ORIF Left tibial plateau 11/19/22. She has posttraumatic osteoarthritis and painful hardware. She should continue exercise as tolerated with emphasis on weight building resistance activities. Pt states her leg is feeling much better. Allergies No Known Allergies Allergy (Verified 06/21/24 13:48) HPI HPI OV-ORIF Lt tib plateau 11/19/22-follow up: Details: Jo is here today doing well. She is 18 months status post left tibial plateau surgery. She is able to walk comfortably PFSH Medical History Colon cancer screening Deviated septum Raynaud's disease Multinodular goiter History of breast cancer Surgical History Postop check History of laparoscopic appendectomy (11/22/23) H/O lumpectomy History of thyroidectomy, subtotal Family History Father Heart attack Sister CAD (coronary artery disease) Leukemia Diabetes mellitus Brother Substance abuse Sister Breast cancer Social History Household Members: Spouse Housing: House Do you presently have visiting nurse or other home services: No Alcohol intake: current Alcohol intake frequency: a few times a month Alcohol type: beer Comment: once Q 2 weeks 3 beers Patient Tobacco Use Status: Never used Tobacco Tobacco use type: Cigarette e-Cigarette/Vaping Use: Never Used Second Hand Smoke Exposure: No Advance Directives Date on File: 11/22/23 service: No Current occupational status: employed 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 Chin October 2022 Code(s): S82.202A - Unspecified fracture of shaft of left tibia, initial encounter for closed fracture Category: Medical Qualifiers: Encounter type: subsequent encounter Tibia location: proximal Fracture type: closed Fracture morphology: unspecified fracture morphology Fracture healing: with routine healing Qualified Code(s): S82.102D - Unspecified fracture of upper end of left tibia, subsequent encounter for closed fracture with routine healing Plan: Jo is doing very well status post left tibial plateau fracture. She is really here just to let me know that she is doing well and nothing is warranted. Should pain worsen over time she can return to see me. Orders: Orders XR knee LT 3V Today M25.562 - Pain in left knee Coding Level of Care Code Est Pt Level 3 (59211) Diagnoses Closed fracture of proximal end of left tibia with routine healing, unspecified fracture morphology, subsequent encounter S82.102D Encounter type: subsequent encounter Tibia location: proximal Fracture type: closed Fracture morphology: unspecified fracture morphology Fracture healing: with routine healing
== END 2024-06-21 14:38 | disposition home or self-care (01) ==
LOC: HO.HOS 13:44
PROVIDERS: PCP Internal Medicine; Visit Provider Orthopaedic Surgery
DX: S82.102D Unspecified fracture of upper end of left tibia, subsequent encounter for closed fracture with routine healing (principal); S82.142D Displaced bicondylar fracture of left tibia, subsequent encounter for closed fracture with routine healing
CPT/HCPCS: 99212

== ENCOUNTER 2024-07-23 06:10 | Outpatient (REF) | payer BC, SELFPAY ==
[2024-07-23 06:25] LABS: MANUAL DIFF FLAG NO
[2024-07-23 07:21] LABS: Basophils Percent Auto 0.6 % (0-2); Eosinophils Absolute Auto 0.1 X10*3/uL (0.0-0.4); Eosinophils Percent Auto 2.7 % (0-4); Hematocrit 39.5 % (37.0-47.0); Hemoglobin 13.5 g/dl (12.0-16.0); Imm Gran Abs Auto 0.01 X10*3/uL (0.00-0.03); Imm Gran Pct Auto 0.2 % (0.0-0.4); Lymphocytes Absolute Auto 1.7 X10*3/uL (1.2-4.9); Lymphocytes Percent Auto 36.6 % (20-40); Mean Corpuscular HGB Conc 34.2 g/dl (31.0-35.0); Mean Corpuscular Hemoglobin 33.1 pg (27.0-33.0); Mean Corpuscular Volume 96.8 fL (80.0-98.0); Mean Platelet Volume 8.6 fL (9.4-12.3); Monocytes Absolute Auto 0.5 X10*3/uL (0.1-1.2); Monocytes Percent Auto 10.3 % (2-11); Neutrophils Absolute Auto 2.4 x10*3/uL (2.0-8.3); Neutrophils Percent Auto 49.6 % (45-73); Platelet Count 435 X10*3/uL (160-400); Red Blood Count 4.08 X10*6/uL (4.20-5.50); Red Cell Distribution Width 12.8 % (11.0-16.0); White Blood Count 4.8 X10*3/uL (4.8-10.8)
[2024-07-23 07:59] LABS: Alanine Aminotransferase 44 U/L (0-31); Albumin Level 4.2 g/dL (3.5-5.0); Alkaline Phosphatase 83 U/L (39-117); Anion Gap 10 (12-20); Aspartate Amino Transferase 36 U/L (5-31); Bilirubin Total 0.5 mg/dL (0.0-1.0); Blood Urea Nitrogen 9 mg/dL (9-16); Calcium 9.7 mg/dL (8.4-10.2); Carbon Dioxide 29 mmol/L (22-29); Chloride 106 mmol/L (96-108); Cholesterol 218 mg/dL (<200); Estimated Glomerular Filt Rate > 60; Glucose Random 100 mg/dL (60-115); HDL Cholesterol 76 mg/dL (>40); LDL Cholesterol Calculated 125 mg/dL (<100); Potassium 4.1 mmol/L (3.3-5.1); Sodium 141 mmol/L (135-145); Total Protein 7.4 g/dL (6.5-8.0); Triglycerides 86 mg/dL (<150)
[2024-07-23 08:05] LABS: HBS Num1 1.54 mIU/mL (0-7.99); HBc Num1 0.08 S/CO (0.00-0.79); Hepatitis B Core Antibody Nonreactive (Nonreactive); Hepatitis B Surface Antigen Negative (Negative); ~HepC Num1 0.09 S/CO (0.00-0.79); ~Hepatitis B Surface Antibody NONREACTIVE (Nonreactive); ~Hepatitis C Antibody Nonreactive (Nonreactive)
[2024-07-23 08:17] LABS: Free T4 (Free Thyroxine) 1.04 ng/dL (0.71-1.85)
[2024-07-23 08:20] LABS: Folate 15.7 ng/mL (> or = 4.0); Vitamin B12 513 pg/mL (200-900)
== END 2024-07-23 06:11 | disposition home or self-care (01) ==
LOC: HO.LAB 06:10
PROVIDERS: PCP Internal Medicine; Visit Provider Internal Medicine
DX: K76.0 Fatty (change of) liver, not elsewhere classified (principal); R79.89 Other specified abnormal findings of blood chemistry; E78.00 Pure hypercholesterolemia, unspecified
CPT/HCPCS: 36415; 80053; 80061; 82607; 82746; 84439; 84443; 85025; 86704; 86706; 86803; 87340

== ENCOUNTER 2024-08-05 14:16 | Outpatient (AMB) | payer BC, SELFPAY ==
[2024-08-05 14:32] VITALS: BP 134/78; PULSE 86; O2SAT 98; BMI 29.3
--- NOTE | 2024-08-05 14:32 | MHC.PC.OV ---
Vital Signs 08/05/24 14:32 Height 5 ft 4 in Weight 171 lb BMI 29.3 BP 134/78 Blood Pressure Location Lt brachial Position Sitting Pulse 86 Pulse Source Pulse Oximeter Pulse Oximetry (%) 98 Oxygen Delivery Method Room Air Intake Visit Reasons: 6 mo fu hepatic steatosis Security Business Analyst Required: No Accompanied by: Self / Same As Patient Allergies No Known Allergies Allergy (Verified 08/05/24 14:33) Medication List - Last Reconciled 08/05/24 by Capri Souza MD calcium citrate 600 mg PO DAILY cholecalciferol (vitamin D3) 2,000 units PO DAILY ibuprofen 400 mg PO ONCE letrozole 2.5 mg PO DAILY@1800 loratadine 10 mg PO DAILY multivitamin 1 tab PO DAILY walker Folding front wheeled walker Tobacco use date assessed: 08/05/24 Dental Screening Dental Screen Date: 08/05/24 Did you have a dental visit in the last 12 months?: Yes Did you have a dental problem in the last 6 months where you did not have access to dental care?: No Was dental information given to patient?: Patient has dentist HPI 6 mo fu hepatic steatosis HPI Details retired Juliet Odom. mammo 09/2024 MRI 03/2024 Zometa 09/2024 gyne 02/2025. [facility] Medical History Colon cancer screening Deviated septum Raynaud's disease Multinodular goiter History of breast cancer Surgical History Postop check History of laparoscopic appendectomy (11/22/23) H/O lumpectomy History of thyroidectomy, subtotal Family History (Updated 08/05/24 @ 15:10 by Capri Souza MD) Father Heart attack Sister CAD (coronary artery disease) Leukemia Diabetes mellitus Bone cancer Brother Substance abuse Sister Breast cancer Social History (Updated 08/05/24 @ 15:10 by Capri Souza MD) Household Members: Spouse Housing: House Do you presently have visiting nurse or other home services: No Alcohol intake: current Alcohol intake frequency: a few times a month Alcohol type: beer Comment: once Q weeks 2 tony Patient Tobacco Use Status: Never used Tobacco Tobacco use type: Cigarette e-Cigarette/Vaping Use: Never Used Second Hand Smoke Exposure: No Advance Directives Date on File: 11/22/23 service: No Current occupational status: employed 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 1. Little interest or pleasure in doing things: not at all 2. Feeling down, depressed, or hopeless: not at all 3. Trouble falling or staying asleep, or sleeping too much: several days 4. Feeling tired or having little energy: several days 5. Poor appetite or overeating: not at all 6. Feeling bad about yourself - or that you are a failure or have let yourself or your family down: not at all 7. Trouble concentrating on things, such as reading the newspaper or watching television: not at all 8. Moving or speaking so slowly that other people could have noticed. Or the opposite - being so fidgety or restless that you have been moving around a lot more than usual: not at all 9. Thoughts that you would be better off or of hurting yourself in some way: not at all Total score: 2 Source: Developed by Drs. Jalen Mcintyre, Annemarie Knott, Lan Vaughan and colleagues, with an educational ganesh from [employer]. Thrive Questionnaire Date Thrive assessed: 08/05/24 I am a: Patient What is your living situation today?: I have a steady place to live Within the past 12 months, did the food you bought not last and you didn't have the money to get more?: Never true Within the past 12 months, did you worry whether your food would run out before you got money to buy more?: Never true Do you have trouble paying for medicines?: No Do you have trouble getting transportation to medical appointments?: No Do you have trouble paying your heating and electricity bill?: No Do you have trouble taking care of your child, family member or friend?: No Do you have trouble with day-to-day activities such as bathing, preparing meals, shopping, managing finances, etc.?: No Are you currently unemployed and looking for a job?: No Are you interested in more education?: No Please select the resources that you would like help with: None Currently or been in a relationship where the following occur: No concerns reported THRIVE Score: 0 AUDIT C Alcohol Use Questionnaire (AUDIT-C) 1. How often do you have a drink containing alcohol?: 2-4 times a month 2. How many drinks containing alcohol do you have on a typical day when you are drinking?: 1 or 2 3. How often do you have six or more drinks on one occasion?: Never Total Score: 2 DUSTIN-7 AMB Questionnaire DUSTIN-7 Date DUSTIN - 7 assessed: 08/05/24 Feeling nervous, anxious, or on edge: 0 = Not at all Not being able to stop or control worryin = Not at all Worrying too much about different things: 0 = Not at all Trouble relaxin = Not at all Being so restless that it is hard to sit still: 0 = Not at all Becoming easily annoyed or irritable: 0 = Not at all Feeling afraid as if something awful might happen: 0 = Not at all Total DUSTIN-7 score (0-4 normal; 5-9 mild; 10-14 moderate; 15-21 severe): 0 Source: Developed by Drs. Jalen Mcintyre, Annemarie Knott, Lan Vaughan and colleagues, with an educational ganesh from [employer]. Physical exam (Primary Care) Vital Signs: Last Vital Signs Pulse 86 08/05/24 14:32 BP 134/78 08/05/24 14:32 Pulse Ox 98 08/05/24 14:32 Oxygen Delivery Method Room Air 08/05/24 14:32 BMI result Body Mass Index 29.3 Tobacco/Smoking Status: Tobacco use Status Tobacco use date assessed 08/05/24 08/05/24 14:41 Patient Tobacco Use Status Never used Tobacco 08/05/24 15:10 Tobacco use type Cigarette 08/05/24 15:10 e-Cigarette/Vaping Use Never Used 08/05/24 15:10 PHQ-9: PHQ-9 Score PHQ-9: Total score 2 08/05/24 14:57 Thrive Assessment: Date of Thrive Assessment Date Thrive assessed 08/05/24 08/05/24 14:41 Currently or been in a relationship where the following occur: No concerns reported Const General: alert; No acute distress Eyes Conjunctivae: conjunctivae normal Resp Auscultation: clear to auscultation bilaterally Cardio Rate: regular rate Rhythm: regular rhythm GI Inspection: Yes normal to inspection Extrem General: Yes normal to inspection and No edema Coding Level of Care Code Est Pt Prev Care 40-64y(82065) Diagnoses History of breast cancer Z85.3 Hypercholesterolemia E78.00 Closed fracture of proximal end of left tibia with routine healing, unspecified fracture morphology, subsequent encounter S82.102D Encounter type: subsequent encounter Fracture healing: with routine healing Fracture morphology: unspecified fracture morphology Fracture type: closed Tibia location: proximal Hepatic steatosis K76.0 Assessment & Plan Assessment & Plan (1) History of breast cancer: Comment: 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 Be it pork or beef they have a lot of cholesterol (3) Left tibial fracture: Comment: Status post ORIF Dr. Chin October 2022 Code(s): S82.202A - Unspecified fracture of shaft of left tibia, initial encounter for closed fracture Category: Medical Qualifiers: Encounter type: subsequent encounter Fracture healing: with routine healing Fracture morphology: unspecified fracture morphology Fracture type: closed Tibia location: proximal Qualified Code(s): S82.102D - Unspecified fracture of upper end of left tibia, subsequent encounter for closed fracture with routine healing Plan: Continue to follow-up with ortho. Stable (4) Hepatic steatosis: Code(s): K76.0 - Fatty (change of) liver, not elsewhere classified Category: Medical Plan: Low-fat diet and exercise Plan History of Present Illness The patient is a 59-year-old female presenting with recent intentional weight loss and follow-up for multiple chronic conditions. She has a significant past medical history involving breast cancer diagnosed in October 2014, with continued monitoring and recent discussions about her left breast cancer in December 2023. She also has a history of right breast lobular carcinoma in situ (LCIS) from November 2014. A recent mammogram was in May 2022, with a follow-up MRI in March 2023, and plans for a September 2024 mammogram. She has a multinodular goiter managed by endocrinology, with biannual ultrasounds set, and osteopenia for which she undergoes Zometa infusions twice yearly. Her last bone density conducted in September 2022 with plans for September 2024. After a left tibial plateau fracture in 2022 necessitated open reduction and internal fixation, she remains under regular orthopedic follow-ups. She reports improved pain from a cervical strain diagnosed in March, managing with physical therapy and ibuprofen. The strain likely resulted from using a walker post-fracture. Her hypercholesterolemia management includes achieving an LDL goal of less than 130 mg/dL. The patient adheres to a no-fat diet and exercises regularly. Liver function tests indicate mild elevation, consistent with her hepatic steatosis diagnosis. She has mild thrombocytosis without anemia symptoms, normal electrolytes and renal function, and borderline blood sugars recently reducing. Health Maintenance - Breast cancer surveillance with regular breast MRIs (last conducted March 2023) and mammograms scheduled annually (next in September 2024) - Bone density screening completed in September 2022, with a follow-up planned for September 2024 - Cholesterol management with diet, exercise, and LDL target of less than 130 mg/dL - Osteopenia managed with Zometa infusions every six months - Endocrinology follow-up for multinodular goiter with biannual ultrasounds - Screening for peripheral vascular disease and cardiovascular risk management - Shingles vaccination considered, patient interested Social History - 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 - Exercise: Engages in daily walking, physical part-time job - Nutrition: Consumes a balanced diet with low-sodium V8 juice, cottage cheese, crackers, vegetables, and engages in intentional weight loss - Alcohol use: Social consumption, weekly - Tobacco use: Never smoked - Functional status: Actively mobile and participating in daily activities - Weight management: Intentionally lost 10 pounds; goals to lose additional weight Review of Systems - Musculoskeletal: Reports right-sided neck pain, managed with exercises and ibuprofen - Cardiovascular: Denies chest pain, shortness of breath on exertion, swelling - Respiratory: Denies cough, shortness of breath - Gastrointestinal: Denies nausea, vomiting, bowel movements regular - Genitourinary: Denies dysuria, nocturia, urinary incontinence - Neurological: Denies dizziness, headaches - Endocrine: Reports weight loss; denied excessive hunger or thirst Physical Exam - General- Well nourished and in no acute distress - Musculoskeletal- Full range of motion noted in the shoulders; muscle strength 5/5; trapezius muscle tenderness on right side - Cardiovascular- Regular rate and rhythm; no murmurs - Respiratory- Clear to auscultation bilaterally, no wheezing - Skin- Normal color and texture - Neurological- Cranial nerves II-XII grossly intact; deep tendon reflexes 2+ symmetric Results - Labs: Mild thrombocytosis, blood sugar at 100 mg/dL, liver function mildly elevated, with normal electrolytes and renal function, vitamin B12 and folic acid within normal limits - Imaging: Recent breast MRI in March 2023; mammogram May 2022 - Bone Density: September 2022 Plan 1. The patient's osteopenia is addressed with Zometa infusions biannually, alongside appropriate calcium and vitamin D. Physical therapy continues to be the recommended course for cervical strain management. I advised monitoring her cholesterol levels with lifestyle modifications targeting an LDL goal of less than 130 mg/dL. Peripheral vascular health will be continuously evaluated. Regular follow-ups with hematology-oncology and the multidisciplinary care team, including endocrinology for her multinodular goiter, were recommended. I encouraged her to consider the shingles vaccination and acknowledged her commitment to weight management and improving hepatic health.: Patient was informed and verbally consented to the use of an ambient scribe for clinic note documentation during this visit. Discussion Notes I discussed the patient's breast cancer management plan, emphasizing the importance of scheduled MRIs and mammograms to monitor and manage her condition. I explained the rationale for Zometa infusions to manage osteopenia, highlighting its impact on improving bone density. As for her cervical strain, I outlined the benefits of continuing physical therapy and pain management strategies like ibuprofen. In discussing her hypercholesterolemia, I highlighted lifestyle modifications to reach her LDL goal and the associated benefits for cardiovascular health. We reviewed the significance of weight management given her hepatic steatosis, aiming to improve liver function. I addressed the option for the shingles vaccine, assisting in disease prevention. Follow-up and continuing care with hematology-oncology, endocrinology, and orthopedic teams were advised, with planned evaluations and monitoring of the patient's cardiovascular and liver health. Patient Instructions - Continue your regular schedule of breast MRIs and mammograms; your next mammogram is in September 2024. - Keep up with the Zometa infusions every six months and ensure adequate calcium and vitamin D intake. - Perform the neck exercises daily to manage your cervical strain, and take ibuprofen as needed for pain. - Continue your cholesterol-lowering diet and exercise routine to reach an LDL goal of less than 130 mg/dL. - Consider getting the shingles vaccination for added protection. - Maintain your weight management program to help improve your liver enzyme levels. - Follow up with your specialists as scheduled, including hematology-oncology and endocrinology, for ongoing care. - Keep monitoring your blood sugar levels to prevent any issues. Orders: Orders XR cervical spine 2V Today S16.1XXA - Strain of muscle, fascia and tendon at neck level, initial encounter Complete Blood Count Auto Diff 1 Year K76.0 - Fatty (change of) liver, not elsewhere classified Free T4 (Free Thyroxine) 1 Year K76.0 - Fatty (change of) liver, not elsewhere classified Lipid Panel 1 Year E78.00 - Pure hypercholesterolemia, unspecified, K76.0 - Fatty (change of) liver, not elsewhere classified Vitamin B12 and Folate 1 Year K76.0 - Fatty (change of) liver, not elsewhere classified Vitamin D 25-OH Total 1 Year K76.0 - Fatty (change of) liver, not elsewhere classified UA CC w/rflx Micro + Cult 1 Year K76.0 - Fatty (change of) liver, not elsewhere classified, R30.0 - Dysuria XR chest 2V Today S16.1XXA - Strain of muscle, fascia and tendon at neck level, initial encounter Comprehensive Met. Panel 1 Year K76.0 - Fatty (change of) liver, not elsewhere classified Hemoglobin A1c 1 Year K76.0 - Fatty (change of) liver, not elsewhere classified Thyroid Stimulating Hormone 1 Year K76.0 - Fatty (change of) liver, not elsewhere classified
--- OUTSIDE RECORDS SUMMARY | 2024-08-05 15:07 | XMS_ITS ---
Author Organization [facility] Address [address] [place] [phone] Care Team Providers Care Webfocus Developer Name Role Phone Capri Souza MD Primary Care Provider Jalen Richards [phone] Allergies No Known Allergies REASON FOR VISIT patient presents today for colon screening Medications Medication SIG (Take, Route, Frequency, Duration) Notes Start Date End Date Status CeleBREX 200 MG 1 capsule with food Orally Once a day for 30 day(s) Active Claritin 10 MG 1 tablet Orally Once a day for 30 day(s) Active Womens Multivitamin - as directed Orally Active Calcium 1 tab Oral for 14 days Active Vitamin D3 50 MCG (1999) 1 capsule Or ally Once a day Active Letrozole 2.5 MG Oral for 90 A ctive Social History Tobacco Use: Social History Observation Description Date Details (start date - stop date) Never Smoker NA - NA Tobacco Use/Smoking Question Answer Notes Patient is a nonsmoker Alcohol Screen Question Answer Notes Did you have a drink contain ing alcohol in the past year? Yes How often did you have a dri nk containing alcohol in the past year? 2 to 4 times a month (2 points) How many drinks did you have on a typical day when you were drinking in the past year? 1 or 2 drinks (0 point) How often did you have 6 or more drinks on one occasion in the past year? Never (0 point) Points 2 Interpretation Negative Section Notes: Nonsmoker; occ. alcohol Problems Problem Type SNOMED Code ICD Code Onset Dates Problem Status W/U Status Risk Notes Problem 730997536 History of adenomatous polyp of colon (Z86.010) Active confirmed Problem 276523356783993 Preprocedural examination (Z01.818) Active confirmed Vital Signs Temperature 98.2 degrees Fahrenheit 04/29/19 24 Blood pressure systolic 00 mm Hg 04/29/19 24 Blood pressure diastolic 00 mm Hg 024 Height 63 in 04/29/2023 Weight 169 lbs 04/29/2023 BMI 29.93 kg/m2 04/29/2023 Encounters Encounter Location Date Provider Diagnosis [facility] [address] [place] [address] 04/29/2023 Jalen Bro Encounter for screen ing for malignant neoplasm of colon Z12.11 ; Preprocedural examination Z01.818 and History of adenomatous polyp of colon Z86.010 Assessments Encounter Date Diagnosis (ICD Code) Assessment Notes Treatment Notes Treatment Clinical Notes Section Notes 04/29/2023 Encounter for screening for malignant neoplasm of colon (ICD-10 - Z12.11) Overall, Jo appears quite well. We did review that given her history of tubular adenomas removed over 5 years ago I would recommend a followup colonoscopy for further screening purposes. We did review the rationale for this in regard to colon cancer prevention. Full consent is obtained for this, including risks of bleeding and perforation. The procedure will be done with monitored anesthesia care. Jo was comfortable with this plan. Thank you again for allowing me to participate in Jo's care. I shall continue to keep you advised of her progress. 04/29/2023 Preprocedural examination (ICD-10 - Z01.818) Overall, Jo appears quite well. We did review that given her history of tubular adenomas removed over 5 years ago I would recommend a followup colonoscopy for further screening purposes. We did review the rationale for this in regard to colon cancer prevention. Full consent is obtained for this, including risks of bleeding and perforation. The procedure will be done with monitored anesthesia care. Jo was comfortable with this plan. Thank you again for allowing me to participate in Jo's care. I shall continue to keep you advised of her progress. 04/29/2023 History of adenomatous polyp of colon (ICD-10 - Z86.010) Overall, Jo appears quite well. We did review that given her history of tubular adenomas removed over 5 years ago I would recommend a followup colonoscopy for further screening purposes. We did review the rationale for this in regard to colon cancer prevention. Full consent is obtained for this, including risks of bleeding and perforation. The procedure will be done with monitored anesthesia care. Jo was comfortable with this plan. Thank you again for allowing me to participate in Jo's care. I shall continue to keep you advised of her progress. Plan Of Treatment Future Test Test Name Order Date COLONOSCOPY 04/29/2023 Next Appt Details Follow Up: prn, Reason: Progress Notes * JO BONILLA EDOB:[birth year] (58 yo F)Acc No.[id number]:04/29/2023 Progress Notes Patient:?JO BONILLA E Provider:?Jalen Crabtree MD :1965???Age:58 Y???Sex:Female D ate:04/29/2023 Address:[address] [place], [place] [id number] Pcp:Capri Souza MD Subjective: * Chief Complaints: * ???Patient presents today fo r colon screening * HPI: ???incontinence:? I saw Jo in the office today for evaluation of her personal history of tubular adenomas of the colon and need for colorectal cancer screening. ?I last saw Jo in December 2017, at which time she underwent a screening colonoscopy with removal of 2 tubular adenomas. She presently feels well. She enjoys a good appetite, without any significant heartburn or dysphagia. She denies abdominal pain, jaundice, nor weight loss. She denies any known family history of colorectal cancer. Her bowel movements are regular and without any signs of bleeding. ?Laboratories from just last week revealed a normal CBC. * ROS:?General/Constitutional:?Change in appetite?denies.?Chills?denies.?Fatigue?denies.?Ophthalmologic:?Comments?all negative.?ENT:?Comments?all negative.?Respiratory:?hemoptysis?denies.?Cough?denies.?Cardiovascular:?Chest pain?denies.?Orthopnea?denies.?Gastrointestinal:?Comments?See HPI for details.?Genitourinary:?Hematuria?denies.?Dysuria?denies.?Musculoskeletal:?Painful joints?denies.?Weakness?denies.?Skin:?Itching?denies.?Rash?denies.?Neurologic:?Headache?denies.?Seizures?denies.?Psychiatric:?Comments?all negative.? * Medical History:? * Surgical History:?Left breas t lumpectomy and a 2nd surgery to obtain clean margins Left thyroidectomy-benign 2004Tibial plateau [id number]-[id number]-Ld. Epstein 2022 * Hospitalization/Major Diagno stic Procedure:?No Hospitalization History. * Family History:?Father: dece ased, diagnosed with Heart disease, HTN (hypertension).?Mother: .?Siblings: sister, diagnosed with Heart disease, Diabetes.? No known hx of colon cancer Father might have had a hx of polyps. * Social History:?Tobacco Use:?Tobacco Use/Smoking?Patient is a?nonsmoker.?Drugs/Alcohol:?Alcohol Screen?Did you have a drink containing alcohol in the past year??Yes,?How often did you have a drink containing alcohol in the past year??2 to 4 times a month (2 points),?How many drinks did you have on a typical day when you were drinking in the past year??1 or 2 drinks (0 point),?How often did you have 6 or more drinks on one occasion in the past year??Never (0 point),?Points?2,?Interpretation?Negative.?Miscellaneous:?Marital status: . 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 ???Nonsmoker; occ. alcohol. * Medications:?TakingCalcium 1 tab Oral Womens Multivitamin - Tablet as directed Orally Claritin 10 MG Tablet 1 tablet Orally Once a dayCeleBREX 200 MG Capsule 1 capsule with food Orally Once a dayLetrozole 2.5 MG Tablet Oral Vitamin D3 50 MCG (1999) Capsule 1 capsule Orally Once a dayTaking Calcium 1 tab Oral Taking Womens Multivitamin - Tablet as directed Orally Taking Claritin 10 MG Tablet 1 tablet Orally Once a dayTaking CeleBREX 200 MG Capsule 1 capsule with food Orally Once a dayTaking Letrozole 2.5 MG Tablet Oral Taking Vitamin D3 50 MCG (1999) Capsule 1 capsule Orally Once a dayDiscontinuedTamoxifen Citrate 20 MG Tablet 1 tablet Orally DAILYMedication List reviewed and reconciled with the patientDiscontinued Tamoxifen Citrate 20 MG Tablet 1 tablet Orally DAILYMedication List reviewed and reconciled with the patient * Allergies:?N.K.D.A.yes[Aller gies Verified] Objective: * Vitals:?Wt: 169 lbs, Ht: 63 in, BMI:29.93 Index, BP: 00/00 mm Hg, Temp: 98.2. * Examination: ???General Examination: ?GENERAL APPEARANCE:?pleasant, well nourished, well developed, in no acute distress.?EYES:?sclera non-icteric.?ORAL CAVITY:?mucosa moist.?NECK/THYROID:?no cervical lymphadenopathy, neck supple.?SKIN:?nonjaundiced, no spider angiomata.?HEART:?S1, S2 normal.?LUNGS:?clear to auscultation bilaterally.?ABDOMEN:?normal bowel sounds, no guarding or rigidity, no guarding or rigidity, no masses palpable, soft, nontender, nondistended.?EXTREMITIES:?no edema.?NEUROLOGIC:?alert and oriented.? Assessment: * Assessment: 1.?Preprocedural examination - Z01.818 (Primary)?2.?Encounter for screening for malignant neoplasm of colon - Z12.11?3.?History of adenomatous polyp of colon - Z86.010? Overall, Jo appears quite well. We did review that given her history of tubular adenomas removed over 5 years ago I would recommend a followup colonoscopy for further screening purposes. We did review the rationale for this in regard to colon cancer prevention. Full consent is obtained for this, including risks of bleeding and perforation. The procedure will be done with monitored anesthesia care. Jo was comfortable with this plan. Thank you again for allowing me to participate in Jo's care. I shall continue to keep you advised of her progress. Plan: * Treatment: 2.?History of adenomatous polyp of colon?Procedure: COLONOSCOPY (Ordered for 04/29/2023)* with MACsched for 06/02/23 at 2:30 pmmiralax * Procedure Codes:?3017F COLOR ECTAL CA SCREEN DOC [id number] TOBACCO [id number] BP SCR NOT PRFRM REC REASON NOS * Preventive Medicine:? ??Counseling:?Care goal follow-up plan:?Above Normal BMI Follow-up?Giving encouragement to exercise,?BMI management provided?Yes.? * Follow Up:?prn * * Sign off status: Completed true * Provider:?Jalen Crabtree MD Date:? 024 Generated for Ramonita tatum/Antonino/Vickitting on:?08/05/2024 03:06 PM EDT History and Physical Notes * HPI (History of Present Illness) Category Sub-Category Detail Notes Category Not es incontinence I saw Jo in the office today for evaluation of her personal history of tubular adenomas of the colon and need for colorectal cancer screening. I last saw Jo in December 2017, at which time she underwent a screening colonoscopy with removal of 2 tubular adenomas. She presently feels well. She enjoys a good appetite, without any significant heartburn or dysphagia. She denies abdominal pain, jaundice, nor weight loss. She denies any known family history of colorectal cancer. Her bowel movements are regular and without any signs of bleeding. Laboratories from just last week revealed a normal CBC. Examination Category Sub-Category Detail Notes Category Not es General Examination GENERAL APPEARANCE: pleasant , well nourished, well developed, in no acute distress HEAD: EYES: sclera non-icteric EARS: NOSE: THROAT: NECK/THYROID: no cervical lymphade nopathy, neck supple HEART: S1, S2 normal CHEST: LUNGS: clear to auscultatio n bilaterally ABDOMEN: normal bowel sounds, no guarding or rigidity, no guarding or rigidity, no masses palpable, soft, nontender, nondistended NEUROLOGIC: alert and oriented SKIN: nonjaundiced, no spi uvaldo angiomata EXTREMITIES: no edema PERIPHERAL PULSES: BACK: BREASTS: MUSCULOSKELETAL: MALE GENITOURINARY: LYMPH NODES: RECTAL EXAM: FEMALE GENITOURINARY: ORAL CAVITY: mucosa moist
--- OUTSIDE RECORDS SUMMARY | 2024-08-05 15:07 | XMS_ITS | Patient Health Record ---
Author Organization [facility] Address [address] [place] [address] Care Team Providers Care Director Energy Name Role Phone Po Capri SANCHEZ Primary Care Provider Jalen Richards [phone] Allergies No Known Allergies Reason For Referral No Information Medications Medication SIG (Take, Route, Frequency, Duration) [...] Interpretation Negative Section Notes: Nonsmoker; occ. alcohol Nonsmoker; occ. alcohol Problems Problem Type SNOMED Code ICD Code Onset Dates Problem Status W/U Status Risk Notes Problem 479928469 Encounter for screening for malignant neoplasm of colon (Z12.11) Active confirmed Problem 874075881 History of adenomatous polyp of colon (Z86.010) Active confirmed Problem Diverticulosis o f large intestine without perforation or abscess without bleeding (K57.30) Active confirmed Problem 087654851416101 Preprocedural examination (Z01.818) Active confirmed Problem 023734260563384 Pre-procedural examination (Z01.818) Active confirmed Plan Of Treatment Future Test Test Name Order Date COLONOSCOPY 12/18/2017 COLONOSCOPY 04/29/2023 Insurance Providers Payer Name Payer Address Payer Phone Subscriber Number Group Number Insured Name Patient Relationship to Insured Coverage Start Date Coverage End Date [facility] [address] [address] [place] [address] [id number] MIGUEL BONILLA Self - patient is the insured Medical (General) History Medical History History ICD Code Denies MA,DM,CVA,Lung disease,renal dise ase Colonoscopy [address] Golden manley--WNL but biopsies described nonspecific colitis IBS/Lactose intolerance--neg ative transglutaminase IgA and IgG antibodies in 2006 Left-sided breast cancer 201 5--chemo, then surgery as below, then XRT--positive sentinel node, but all other nodes were negative Colonoscopy 12/2017 with 2 tubular adeno mas removed Osteopenia Surgical History Surgery Date(Month/Year) Left breast lumpectomy and a 2nd surgery to obtain clean margins 2014-06/2015 Left thyroidectomy-benign 2004 Tibial plateau yqtgknko-pbvh-Rn. Epstein 2022
--- OUTSIDE RECORDS SUMMARY | 2024-08-05 15:07 | XMS_ITS ---
Author Organization [facility] Address [address] [place] [address] Care Team Providers Care Repossession Agent Name Role Phone Capri Souza MD Primary Care Provider Jalen Richards [phone] REASON FOR VISIT recall colonoscopy Encounters Encounter Location Date Provider Diagnosis [facility] [address] [place] [phone] 08/14/2023 Jalen Crabtree Plan Of Treatment No Information Progress Notes * MIGUEL BONILLA EDOB:[birth year] (59 yo F)Acc No.[id number]:08/14/2023 Progress Notes Patient:?MIGUEL BONILLA Provider:?Jalen Crabtree MD :1965???Age:58 Y???Sex:Female D ate:08/14/2023 Address:[address] [place], [place] [id number] Pcp:Capri Souza MD Subjective: * Chief Complaints: * ???1. Recall colonoscopy. * Medical History:? Objective: * Vitals:? Assessment: Plan: * Treatment: * * The named appointment provid er may or may not be the originator of this progress note, and it is not deemed complete until electronically signed by the appointment provider. Sign off status: Pending * Provider:?Jalen Crabtree MD Date:? 024 Generated for Fantasmai rc/Antonino/eTransmitting on:?08/05/2024 03:07 PM EDT
--- OUTSIDE RECORDS SUMMARY | 2024-08-05 15:07 | XMS_ITS ---
Author Organization [facility] Address [address] [place] [phone] Care Team Providers Care Bobbin Cleaner Name Role Phone Po Capri SANCHEZ Primary Care Provider Jalen Richards [phone] REASON FOR VISIT screening,hx polyps Problems Problem Type SNOMED Code ICD Code Onset Dates Problem Status W/U Status Risk Notes Problem Diverticulosis o f large intestine without perforation or abscess without bleeding (K57.30) Active confirmed Encounters Encounter Location Date Provider Diagnosis [facility] [address] [place] [phone] 06/02/2023 Jalen Crabtree Encounter for scre ening [...] MIGUEL BONILLA EDOB:[birth year] (59 yo F)Acc No.[id number]:06/02/2023 COLON WITH MAC Patient:?MIGUEL BONILLA Provider:?Jalen Crabtree MD :1965???Age:58 Y???Sex:Female D ate:06/02/2023 Address:[address] [place] [address] [facility] Pcp:Capri Souza MD Subjective: * Chief Complaints: * ???1. Screening,hx polyps. * Medical History:? Objective: * Vitals:? Assessment: * Assessment: 1.?Encounter for screening c olonoscopy - Z12.11 (Primary)???2.?Colon polyps - K63.5???3.?Diverticulosis of large intestine without perforation or abscess without bleeding - K57.30???4.?Other hemorrhoids - K64.8??? Plan: * Treatment: * Procedure Codes:?62608 LESIO N REMOVAL COLONOSCOPY, Modifiers: 33 * * The named appointment provid er may or may not be the originator of this progress note, and it is not deemed complete until electronically signed by the appointment provider. Sign off status: Pending * Provider:?Jalen Crabtree MD Date:? 024 Generated for Ramonita tatum/Antonino/eTransmitting on:?08/05/2024 03:06 PM EDT
== END 2024-08-05 16:02 | disposition home or self-care (01) ==
LOC: HO.HMCH 14:17
PROVIDERS: PCP Internal Medicine; Visit Provider Internal Medicine
DX: E78.00 Pure hypercholesterolemia, unspecified (principal); Z85.3 Personal history of malignant neoplasm of breast; K76.0 Fatty (change of) liver, not elsewhere classified; S82.102D Unspecified fracture of upper end of left tibia, subsequent encounter for closed fracture with routine healing

== ENCOUNTER 2024-08-05 14:16 | Outpatient (REF) | payer BC, SELFPAY ==
--- NOTE | ~2024-08-05 | XR_ITS ---
EXAMINATION: XR CERVICAL SPINE CLINICAL INFORMATION: S16.1XXA - Strain of muscle, fascia and tendon at neck level, initial en... COMPARISON: None available. TECHNIQUE: 3 views of the cervical spine were obtained. FINDINGS: Craniocervical junction is intact. Marginal osteophyte formation and endplate sclerosis and decreased intervertebral disc height C5-6. Grade 1 retrolisthesis, C5-6. No acute cortical disruption. No lytic or blastic lesions. Vascular clips in the anterior right soft tissues of the neck and overlapping C7-T1 level. XR/XR cervical spine 2V IMPRESSION: Spondylosis C5-6 resulting in grade 1 retrolisthesis. Prior surgical procedure anterior right soft tissue neck. Consider thyroid gland procedure. Electronically signed by: Ariel Yusuf MD 08/06/2024 07:52 AM EDT
--- NOTE | ~2024-08-05 | XR_ITS ---
EXAMINATION: XR CHEST CLINICAL INFORMATION: S16.1XXA - Strain of muscle, fascia and tendon at neck level, initial en... COMPARISON: August 20, 2018. TECHNIQUE: 2 views of the chest were obtained. FINDINGS: No consolidation, pleural effusion or pneumothorax. Cardiomediastinal silhouette size is normal. Mild S-shaped curvature of the thoracolumbar spine. Vascular clips in the left breast shadow with reduced volume. XR/XR chest 2V IMPRESSION: No acute airspace disease. Prior left lumpectomy. Mild scoliosis, thoracolumbar spine. Electronically signed by: Ariel Yusuf MD 08/06/2024 07:50 AM EDT
== END 2024-08-05 14:17 | disposition home or self-care (01) ==
LOC: HO.XRAY 14:16
PROVIDERS: PCP Internal Medicine; Visit Provider Internal Medicine
DX: S16.1XXA Strain of muscle, fascia and tendon at neck level, initial encounter (principal)
CPT/HCPCS: 71046; 72040

== ENCOUNTER → 2024-08-05 15:50 | Outpatient (BNV) | payer BC, SELFPAY | PROVIDERS: PCP Internal Medicine; Visit Provider Radiology Diagnostic Radiology | DX: M47.812 Spondylosis without myelopathy or radiculopathy, cervical region (principal); S16.1XXA Strain of muscle, fascia and tendon at neck level, initial encounter | CPT/HCPCS: 71046; 72040 ==

== ENCOUNTER 2024-11-24 13:09 | Outpatient (AMB) | payer BC, SELFPAY ==
--- OUTSIDE RECORDS SUMMARY | 2023-06-02 11:40 | XMS_ITS ---
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 Name Role Phone Po Capri SANCHEZ Primary Care Provider Jalen Richards [phone] REASON FOR VISIT screening,hx polyps Problems Problem Type SNOMED Code ICD Code Onset Dates Problem Status W/U Status Risk Notes Problem Diverticulosis o f large intestine without perforation or abscess without bleeding (K57.30) Active confirmed Encounters Encounter Location Date Provider Diagnosis [facility] [address] [place] [phone] 06/02/2023 Jalen Crabtree Encounter for scre ening colonoscopy Z12.11 ; Colon polyps K63.5 ; Diverticulosis of large intestine without perforation or abscess without bleeding K57.30 and Other hemorrhoids K64.8 Assessments Encounter Date Diagnosis (ICD Code) Assessment Notes Treatment Notes Treatment Clinical Notes Section Notes 06/02/2023 Encounter for screening colonoscopy (ICD-10 - Z12.11) 06/02/2023 Colon polyps (ICD-10 - K63.5) 06/02/2023 Diverticulosis of large intestine without perforation or abscess without bleeding (ICD-10 - K57.30) 06/02/2023 Other hemorrhoids (ICD-10 - K64.8) Plan Of Treatment No Information Progress Notes * MIGUEL BONILLA EDOB:[birth year] (59 yo F)Acc No.[id number]:06/02/2023 COLON WITH MAC Patient: MIGUEL CHANEY Provider: Guilherme Crabtree MD :1965 A ge:58 Y S ex:Female Date:06/02/2023 Address:[address] [place], [place] [phone] Pcp:Capri Souza MD Subjective: * Chief Complaints: * 1 . Screening,hx polyps. * Medical History: Objective: * Vitals: Assessment: * Assessment: 1. E ncounter for screening colonoscopy - Z12.11 (Primary) 2 . C olon polyps - K63.5 3 . D iverticulosis of large intestine without perforation or abscess without bleeding - K57.30 4 . O ther hemorrhoids - K64.8 Plan: * Treatment: * Procedure Codes: 4 5385 LESION REMOVAL COLONOSCOPY, Modifiers: 33 * * The named appointment provid er may or may not be the originator of this progress note, and it is not deemed complete until electronically signed by the appointment provider. Sign off status: Pending * Provider: Guilherme Crabtree MD Date: 0 06/02/2023 Generated for Ramonita tatum/Antonino/eTransmitting on: 0 11/24/2024 01:46 PM EDT
--- OUTSIDE RECORDS SUMMARY | 2023-08-14 07:00 | XMS_ITS ---
Author Organization [facility] Address [address] [place] [id number] Care Team Providers Care End Matcher Name Role Phone Capri Souza MD Primary Care Provider Jalen Richards [phone] REASON FOR VISIT recall colonoscopy Encounters Encounter Location Date Provider Diagnosis [facility] [address] [place] [phone] 08/14/2023 Jalen Crabtree Plan Of Treatment No Information Progress Notes * MIGUEL BONILLA EDOB:[birth year] (59 yo F)Acc No.[id number]:08/14/2023 Progress Notes Patient: MIGUEL CHANEY Provider: Guilherme Crabtree MD :1965 A ge:58 Y S ex:Female Date:08/14/2023 Address:[address] [place], [place] [id number] Pcp:Capri Souza MD Subjective: * Chief Complaints: * 1 . Recall colonoscopy. * Medical History: Objective: * Vitals: Assessment: Plan: * Treatment: * * The named appointment provid er may or may not be the originator of this progress note, and it is not deemed complete until electronically signed by the appointment provider. Sign off status: Pending * Provider: Guilherme Crabtree MD Date: 0 08/14/2023 Generated for Fantasmai rc/Antonino/eTransmitting on: 11/24/2024 01:46 PM EDT
--- OUTSIDE RECORDS SUMMARY | 2024-11-24 13:46 | XMS_ITS | Clinical Summary ---
Author Organization [facility] Address [address] [address] Phone Care Team Providers Care Family Helper Name Role Phone Quinton Chisholm Unavailable Po, Capri Grimaldo MD Unavailable [phone] Soheila Shaikh MD Unavailable [phone] Po, Capri Grimaldo MD Primary Care Provider [phone] Allergies Active Allergy Reactions Criticality Noted Date Comments Milk Containing Products (Dairy) Diarrhea 02/2024 Medications letrozole (FEMARA) 2.5 mg tablet Take by mouth. 10/28/2022 Active loratadine (CLARITIN) 10 mg tablet Take 10 mg by mouth daily. Active zoledronic acid (ZOMETA) 4 mg/100 mL PgBk IVPB Inject 4 mg into the vein every 6 (six) months. Active cholecalciferol (VITAMIN D3) 2,000 unit tablet Take 2,000 Units by mouth daily. Active multivit-mineral s/folic acid (ONE-A-DAY WOMEN'S 50 PLUS ORAL) Take by mouth. Active calcium carbonate (CALCIUM 600 ORAL) Take 1 tablet by mouth. Active Active Problems Problem Noted Date Diagnosed Date Multinodular goiter Overview (12/12/2023): s/p right hemithyroidectomy - benign follicular adenoma - heterogeneous, multinodular left lobe Assessment & Plan (12/12/2023 4:11 PM EDT): No compressive symptoms. Ultra sound w/o concerning changes, reviewed images. Subclinical hypothyroidism Assessment & Plan (12/12/2023 4:13 PM EDT): Minimally elevated TSH on last labs. Has typically run high normal. Will have repeated w/ upcoming labs for PCP with copy here. Could consider rx if persistently elevated. Discussed potential of high TSH stimulating growth of nodules, however given stability, certainly no definite indication. Family History Medical History Relation Comments Cancer Sister breast Diabetes Sister type 1 Thyroid disease Sister Relation Status Comments Sister Social History Tobacco Use Types Packs/Day Years Used Date Smoking Tobacco: Never Smokeless Tobacco: Never Tobacco Cessation:Counseling Given: Not Answered Alcohol Use Standard Drinks/Week Comments Yes 2 (1 standard drink = 0.6 oz pur e alcohol) social Education Answer Date Recorded Are you interested in more education? Not on cyndie e 07/26/2022 Are you concerned about learning? Not on file 07/26/2022 No 07/26/2022 No 07/26/2022 Digital Access Answer Date Recorded No 08/24/2022 No 08/24/2022 Reliable internet access at home? Not on file 08/24/2022 Device with a working camera? Not on file Comments Unknown Sex and Gender Information Value Date Recorded Sex Assigned at Not on file Legal Sex Female 9:41 PM EDT Gender Identity Not on file Sexual Orientation Not on file Last Filed Vital Signs Vital Sign Reading Time Taken Comments Blood Pressure 130/70 12/11/2023 11:54 AM EDT Pulse 93 12/11/2023 11:54 AM EDT Temperature - - Respiratory Rate - - Oxygen Saturation 99% 12/11/2023 11:54 AM EDT Inhaled Oxygen Concentration - - Weight 82.6 kg (182 lb) 12/11/2023 11:54 AM EDT Height 162.6 cm (5' 4.02 ) 12/11/2023 11:54 AM E DT Body Mass Index 31.22 12/11/2023 11:54 AM EDT Plan of Treatment Upcoming Encounters Date Type Department Care Team (Late st Contact Info) Description 03/03/2025 2:00 PM EST Office Visit [facility] [address] [place] [address] [place] [address] Calli Phelan MD [address] [place] [phone] Health Maintenance Due Date Last Done Comments LIPID PANEL 1965 DEPRESSION SCREENING 1977 HEPATITIS C SCREENING 1983 HIV ONE-TIME SCREENING (18-65 YEARS) 1983 PAP SMEAR 1986 SCREENING FOR DIABETES 01/13/2000 MAMMOGRAM 2005 COLOGUARD 2010 COLONOSCOPY 2010 COLORECTAL CANCER SCREENING 2010 FIT TEST 2010 FOBT 2010 SIGMOIDOSCOPY 2010 VIRTUAL COLONOSCOPY 2010 ZOSTER VACCINES (1 of 2) 2015 COVID-19 VACCINE (2023- season) 2023 02/27/2022, 10/25/2021, 02/23/2021, Additional history exists Adult Td,Tdap Booster 05/15/2027 05/15/2017 PNEUMOCOCCAL VACCINES (50+ years) Completed 06/15/2015, 02/24/2015, 12/23/2014 SMOKING STATUS SCREENING (Once After 26 Yrs) Completed 12/11/2023 HEPATITIS A VACCINES Aged Out No long er eligible based on patient's age to complete this topic HIB VACCINES Aged Out No longer eligi ble based on patient's age to complete this topic MENINGOCOCCAL VACCINES (ACWY) Aged Out No longer eligible based on patient's age to complete this topic MENINGOCOCCAL VACCINES (B) Aged Out N o longer eligible based on patient's age to complete this topic Medical Devices Not on file Insurance [facility] [place] [address] [place] [address] [facility] Care Teams Family Helper Relationship Specialty Start Date End Date Capri Souza MD [address] [place] [phone] PCP - General Internal Medicine 06/05/22 Quinton Chisholm DO [email or web address] Historical LMR Provider 01/18/17 Capri Souza MD [address] [place] [phone] Historical LMR Provider 01/18/17 Soheila Shaikh MD [address] [place] [address] Historical LMR Provider 01/18/17 Additional Source Comments The information contained in this document represents components of the legal health record. It is not the complete legal health record.[facility]
--- OUTSIDE RECORDS SUMMARY | 2024-11-24 13:46 | XMS_ITS ---
Author Name [facility] Organization Unknown History of Medication Use Medication Directions Dispensed Refills Start Date End Date Stat us Calcium 600 active letrozole 2.5 mg tablet Take 1 tablet every day by oral route. active Allergies Allergen Reaction Severity Comment Documented Date Source Statu s LACTOSE [facility] Problems Problem Status Onset Date Problem Type Date of Resoluti on Source Closed fracture of tibial plateau active 2022-11-13 ProblemAct [facility] Pain of left knee joint active 2022-11-12 ProblemAct [facility] Encounters Encounter Type Encounter Reason Primary Diagnosis Location Date Ambulatory [facility] 11/25/2022 Ambulatory [facility] 11/23/2022 Ambulatory [facility] [place] 11/22/2022 Ambulatory [facility] [place] 11/22/2022 Amb[facility] [place] 11/13/2022 [facility] [place] 11/13/2022 [facility]ulatory [facility] [place] 11/13/2022 Ambulatory [facility] [place] 11/13/2022 Ambulatory [facility] [place] 11/13/2022 Ambulatory [facility] [place] 11/11/2022 Ambulatory [facility] [place] 11/11/2022 Ambulatory [facility] [place] 11/11/2022 Ambulatory [facility] [place] 11/11/2022
--- OUTSIDE RECORDS SUMMARY | 2024-11-24 13:47 | XMS_ITS | Patient Health Record ---
Author Organization [facility] Address [address] [place] [phone] Care Team Providers Care Caul Dresser Name Role Phone Po Capri SANCHEZ Primary Care Provider Jalen Richards [phone] Allergies No Known Allergies Reason For Referral [...] Problem Status W/U Status Risk Notes Problem [id number] Encounter for screening for malignant neoplasm of colon (Z12.11) Active confirmed Problem 008059616 History of adenomatous polyp of colon (Z86.010) Active confirmed Problem Diverticulosis o f large intestine without perforation or abscess without bleeding (K57.30) Active confirmed Problem [id number] Preprocedural examination (Z01.818) Active confirmed Problem [id number] Pre-procedural examination (Z01.818) Active confirmed Plan Of Treatment Future Test Test Name Order Date COLONOSCOPY 12/18/2017 COLONOSCOPY 04/29/2023 Insurance Providers Payer Name Payer Address Payer Phone Subscriber Number Group Number Insured Name Patient Relationship to Insured Coverage Start Date Coverage End Date [facility] [address] [address] [place] [address] [id number] MIGUEL BONILLA Self - patient is the insured Medical (General) History Medical History History ICD Code Denies ID,DM,CVA,Lung disease,renal dise ase Colonoscopy [address] [...] margins 2014-06/2015 Left thyroidectomy-benign 2004 Tibial plateau [id number]. Epstein 2022
== END 2024-11-24 13:12 | disposition home or self-care (01) ==
LOC: HO.HMGAL 13:09
PROVIDERS: PCP Internal Medicine; Visit Provider Registered Nurse Emergency
DX: J30.89 Other allergic rhinitis (principal)
CPT/HCPCS: 95117; 95165

== ENCOUNTER 2024-12-15 13:58 | Outpatient (RCR) | payer BC, SELFPAY | END 2025-01-14 14:37 | disposition home or self-care (01) | LOC: HO.PT 13:58 | PROVIDERS: PCP Internal Medicine; Visit Provider Physical Medicine & Rehabilitation | DX: M54.2 Cervicalgia (principal); M47.812 Spondylosis without myelopathy or radiculopathy, cervical region | CPT/HCPCS: 97110; 97140; 97162 ==

== ENCOUNTER 2024-12-15 15:16 | Outpatient (AMB) | payer BC, SELFPAY ==
--- OUTSIDE RECORDS SUMMARY | 2023-08-14 07:00 | XMS_ITS ---
Author Organization [facility] Address [address] [place] [phone] Care Team Providers Care Cash Management Clerk Name Role Phone Capri Souza MD Primary Care Provider Jalen Richards [phone] REASON FOR VISIT recall colonoscopy Encounters Encounter Location Date Provider Diagnosis [facility] [address] [place] [phone] 08/14/2023 Jalen Crabtree Plan Of Treatment No Information Progress Notes * MIGUEL BONILLA EDOB:[birth year] (59 yo F)Acc No.[id number]:08/14/2023 Progress Notes Patient: MIGUEL CHANEY Provider: Guilherme Crabtree MD :1965 A ge:58 Y S ex:Female Date:08/14/2023 Address:[address] [place], [place] [id number] Pcp:Capri Souza MD Subjective: * Chief Complaints: [...] 0 08/14/2023 Generated for Fantasmai rc/Antonino/eTransmitting on: 0 12/15/2024 06:45 PM EDT
--- OUTSIDE RECORDS SUMMARY | 2024-12-15 18:45 | XMS_ITS | Encounter Summary ---
Author Organization [facility] Address [address] [facility] [address] [place] [phone] Phone Care Team Providers Care Technical Training Manager Name Role Phone Quinton Chisholm Unavailable PoCapri MD Unavailable [phone] Soheila Shaikh MD Unavailable [phone] Capri Souza MD Primary Care Provider [phone] Encounter Details Date Type Department Care Team (Late st Contact Info) Description 12/14/2024 Telephone [facility] [address] [place], [place] [id number] [email or web address] Social History Tobacco Use Types Packs/Day Years Used Date Smoking Tobacco: Never Smokeless Tobacco: Never Alcohol Use Standard Drinks/Week Comments Yes 2 [...] on file Sexual Orientation Not on file documented as of this encounter Plan of Treatment Upcoming Encounters Date Type Department Care Team (Late st Contact Info) Description 03/03/2025 2:00 PM EST Office Visit [facility] [address] [place] [address] Calli Phelan MD [address] [address] [email or web address] documented as of this encounter Visit Diagnoses Not on filedocumented in this encounter Care Teams Technical Training Manager Relationship Specialty Start Date End Date Capri Souza MD [address] [place] [phone] PCP - General Internal Medicine 06/05/22 Quinton Chisholm DO [email or web address] Historical LMR Provider 01/18/17 Capri Souza MD [address] [place] [phone] Historical LMR Provider 01/18/17 Soheila Shaikh MD [address] [place] [address] Historical LMR Provider 01/18/17 documented as of this encounter Additional Source Comments The information contained in this document represents components of the legal health record. It is not the complete legal health record.[facility]
--- OUTSIDE RECORDS SUMMARY | 2024-12-15 18:45 | XMS_ITS | Patient Health Record ---
Author Organization [facility] Address [address] [place] [phone] Care Team Providers Care Air Defense Specialist Name Role Phone Po Capri SANCHEZ Primary Care Provider Jalen Richards [phone] Allergies No Known Allergies Reason For Referral [...] Problem Status W/U Status Risk Notes Problem [id number] Encounter for screening for malignant neoplasm of colon (Z12.11) Active confirmed Problem 411795122 History of adenomatous polyp of colon (Z86.010) Active confirmed Problem Diverticular disease of colon (336325699) Diverticulosis of large intestine without perforation or abscess without bleeding (K57.30) Active confirmed Problem [id number] Preprocedural examination (Z01.818) Active confirmed Problem [id number] Pre-procedural examination (Z01.818) Active confirmed Plan Of Treatment Future Test Test Name Order Date COLONOSCOPY 12/18/2017 COLONOSCOPY 04/29/2023 Insurance Providers Payer Name Payer Address Payer Phone Subscriber Number Group Number Insured Name Patient Relationship to Insured Coverage Start Date Coverage End Date [facility] [address] [address] [place] [address] [id number] IRENEMIGUEL ALTAMIRANO Self - patient is the insured Medical [...] to obtain clean margins 2014-06/2015 Left thyroidectomy-benign 2003 Tibial plateau [id number]. Epstein 2022
--- OUTSIDE RECORDS SUMMARY | 2024-12-15 18:45 | XMS_ITS | Clinical Summary ---
Author Organization [facility] Address [address] [address] Phone Care Team Providers Care Cloth Covered Helmet Puller Name Role Phone Quinton Chisholm Unavailable Po, Capri Grimaldo MD Unavailable Soheila Shaikh MD Unavailable [phone] Po, Capri Grimaldo MD Primary Care Provider [phone] Allergies Active Allergy Reactions Criticality Noted Date [...] however given stability, certainly no definite indication. Encounters Date Type Department Care Team Description 12/14/2024 Telephone [facility] [address] [place] [address] Noy Mota from Last 3 Months Family History Medical History Relation Comments Cancer [...] Office Visit [facility] [address] [place] [address] Calli Phelan MD [address] [place] [phone] [email or web address] Health Maintenance Due Date Last Done Comments LIPID PANEL 1965 DEPRESSION SCREENING 1977 HEPATITIS C SCREENING 1983 HIV ONE-TIME SCREENING (18-65 YEARS) 1983 PAP SMEAR 1986 SCREENING FOR DIABETES 01/13/2000 MAMMOGRAM 2005 COLOGUARD 2010 COLONOSCOPY 2010 COLORECTAL CANCER SCREENING 2010 FIT TEST 2010 FOBT 2010 SIGMOIDOSCOPY 2010 VIRTUAL COLONOSCOPY 2010 ZOSTER VACCINES (1 of 2) 2015 INFLUENZA VACCINE (#1) 2024 2, 01/19/2021, 12/23/2019, Additional history exists COVID-19 VACCINE (2024- season) 2024 02/27/2022, 10/25/2021, 02/23/2021, Additional history exists Adult [...] topic Medical Devices Not on file Insurance [facility] [address] [place] [address] [place] [address] [place] [address] Care Teams Cloth Covered Helmet Puller Relationship Specialty Start Date End Date Capri Souza MD [address] [place] [phone] PCP - General Internal Medicine 06/05/22 Quinton Chisholm DO [email or web address] Historical LMR Provider 01/18/17 Capri Souza MD [address] [place] [phone] Historical LMR Provider 01/18/17 So[facility]ila [facility] [place] [address] Historical LMR Provider 01/18/17 Additional Source Comments The information contained in this document represents components of the legal health record. It is not the complete legal health record.[facility]
--- OUTSIDE RECORDS SUMMARY | 2024-12-15 18:45 | XMS_ITS ---
Author Name Kenia Nye Address Unknown Organization [place] Care Team Providers Care Core Baker Name Role Phone Unavailable Primary Care Physician Unavailab le History Of Present Illness This is a 59 year old female who is an established patient who presents to clinic today for a full body skin check. She has a history of previous basal cell carcinoma, a family history of basal cell carcinoma or squamous cell carcinoma, and no family history of melanoma. Last skin check was 6-9 months ago. She has no lesions of concern today.Additional Comments: Patient presents for a CSE. No concerns. Allergies, Adverse Reactions, Alerts Substance RxNorm Reaction(s) Severity Status Start Da te lactose Diarrhea unspecified active 11/09/19 20 Medications Medication Generic Name RxNorm Strength Strength Unit Route Dose Dose Form Frequency Date Started Date Ended Status Indication Sig fluocinonid e fluocino nide 795164 0.05 % Topica l solut ion 11/15/19 21 suspend ed Appl y 1-2 time s danish y to flak y red area s on scal p as need ed. Celebrex celecoxi b 200 mg Oral capsu le suspend ed Claritin loratadi ne 10 mg Oral 1 table t QD active glucosamine sulfate glucosam ine sulfate 1,500 mg Oral suspend ed ibuprofen ibuprofe n 200 mg Oral 2 table t QD active letrozole letrozol e 2.5 mg Oral 1 table t QD active methylsulfo nylmethane methylsu lfonylme sugey 1,000 mg Oral capsu le suspend ed One-A-Day Women's 50 Plus mv,Ca,mi n-folic acid-vit K1 400-20 mcg Oral 1 table t QD active Vitamin D3 cholecal ciferol (vitamin D3) 10 mcg (1,000 unit) Oral 2 capsu le QD active clobetasol clobet[place] ol 939300 0.05 % Scalp solut ion 11/21/19 24 suspend ed Appl y 1-2 time s to affe cted area s danish y Cefdinir NULL 11/21/19 18 active Ciclopirox Olamine NULL 10/29/19 12 active Finacea NULL 01/25/20 15 active Flucelvax Quadrivalen t NULL 11/21/19 18 active Tamoxifen Citrate NULL 11/08/19 17 suspend ed Tamoxifen Citrate NULL 11/09/19 16 suspend ed Problems Problem Code Type Status Date of Diagnosis Date of Resolution Neoplasm of uncertain behavior of skin (disorder) 58763042(SN OMED) Diagnosis active 12/10/2024 Melanocytic nevus of left lower limb (disorder) 35324727064 9106(SNOMED ) Diagnosis active 12/10/2024 Melanocytic nevus of trunk (disorder) 949063870(S NOMED) Diagnosis active 12/10/2024 Benign neoplasm of skin (disorder) 98376176(SN OMED) Diagnosis active 12/10/2024 Benign neoplasm of skin of right lower limb (disorder) 45788904706 09572(SNOME D) Diagnosis active 12/10/2024 Disorder of pigmentation (disorder) 340349652(S NOMED) Diagnosis active 12/10/2024 Disorder of capillaries (disorder) 94857127(SN OMED) Diagnosis active 12/10/2024 History of malignant neoplasm of skin (situation) 276792376(S NOMED) Diagnosis active 12/10/2024 Neoplasm of uncertain behavior of skin (disorder) 13704276(SN OMED) Diagnosis active 06/04/2024 Seborrheic keratosis (disorder) 440155514(S NOMED) Diagnosis active 06/04/2024 Melanocytic nevus of left lower limb (disorder) 88439570129 9106(SNOMED ) Diagnosis active 06/04/2024 Melanocytic nevus of trunk (disorder) 581178679(S NOMED) Diagnosis active 06/04/2024 Benign neoplasm of skin (disorder) 70479170(SN OMED) Diagnosis active 06/04/2024 Benign neoplasm of skin of right lower limb (disorder) 23445056754 48216(SNOME D) Diagnosis active 06/04/2024 Disorder of pigmentation (disorder) 561786392(S NOMED) Diagnosis active 06/04/2024 Disorder of capillaries (disorder) 88249523(SN OMED) Diagnosis active 06/04/2024 History of malignant neoplasm of skin (situation) 141361059(S NOMED) Diagnosis active 06/04/2024 Basal cell carcinoma of truncal skin (disorder) 773984326(S NOMED) Diagnosis active 12/11/2023 Neoplasm of uncertain behavior of skin (disorder) 73299985(SN OMED) Diagnosis active 11/21/2023 Melanocytic nevus of left lower limb (disorder) 78956744359 9106(SNOMED ) Diagnosis active 11/21/2023 Psoriasis (disorder) 2440460(SNO MED) Diagnosis active 11/21/2023 Melanocytic nevus of trunk (disorder) 530659901(S NOMED) Diagnosis active 11/21/2023 Benign neoplasm of skin (disorder) 46032857(SN OMED) Diagnosis active 11/21/2023 Disorder of skin (disorder) 13853073(SN OMED) Diagnosis active 11/21/2023 Benign neoplasm of skin of right lower limb (disorder) 21267722530 63293(SNOME D) Diagnosis active 11/21/2023 Disorder of capillaries (disorder) 50717407(SN OMED) Diagnosis active 11/21/2023 Disorder of pigmentation (disorder) 354849000(S NOMED) Diagnosis active 11/21/2023 Seborrheic keratosis (disorder) 945961987(S NOMED) Diagnosis active 11/21/2023 History of malignant neoplasm of skin (situation) 898367020(S NOMED) Diagnosis active 11/21/2023 Follicular cysts of skin and subcutaneous tissue (disorder) 014929484(S NOMED) Diagnosis active 07/07/2023 Melanocytic nevus of left lower limb (disorder) 48108006231 9106(SNOMED ) Diagnosis active 05/08/2023 Melanocytic nevus of trunk (disorder) 103363601(S NOMED) Diagnosis active 05/08/2023 Benign neoplasm of skin of right lower eyelid (disorder) 16145648416 679768(SNOM ED) Diagnosis active 05/08/2023 Benign neoplasm of skin (disorder) 69419296(SN OMED) Diagnosis active 05/08/2023 Disorder of skin (disorder) 80641079(SN OMED) Diagnosis active 05/08/2023 Benign neoplasm of skin of right lower limb (disorder) 90731777800 30835(SNOME D) Diagnosis active 05/08/2023 Disorder of capillaries (disorder) 03982430(SN OMED) Diagnosis active 05/08/2023 Disorder of pigmentation (disorder) 690305905(S NOMED) Diagnosis active 05/08/2023 Seborrheic keratosis (disorder) 429957294(S NOMED) Diagnosis active 05/08/2023 Hypertrophic condition of skin (disorder) 50533909(SN OMED) Diagnosis active 05/08/2023 History of malignant neoplasm of skin (situation) 942830509(S NOMED) Diagnosis active 05/08/2023 Melanocytic nevus of lower limb (disorder) 245328340(S NOMED) Diagnosis active 06/21/2022 Melanocytic nevus of left lower limb (disorder) 38581843364 9106(SNOMED ) Diagnosis active 06/21/2022 Melanocytic nevus of trunk (disorder) 515598818(S NOMED) Diagnosis active 06/21/2022 Eczematous dermatitis of left upper eyelid (disorder) 20815358235 9109(SNOMED ) Diagnosis active 06/21/2022 Eczematous dermatitis of right upper eyelid (disorder) 86978460128 9101(SNOMED ) Diagnosis active 06/21/2022 Benign neoplasm of skin (disorder) 54166072(SN OMED) Diagnosis active 06/21/2022 Disorder of skin (disorder) 87610210(SN OMED) Diagnosis active 06/21/2022 Hypertrophic condition of skin (disorder) 93850220(SN OMED) Diagnosis active 06/21/2022 Benign neoplasm of skin of right lower limb (disorder) 87453410937 39748(SNOME D) Diagnosis active 06/21/2022 Disorder of capillaries (disorder) 39157710(SN OMED) Diagnosis active 06/21/2022 Disorder of pigmentation (disorder) 246439039(S NOMED) Diagnosis active 06/21/2022 Seborrheic keratosis (disorder) 609787416(S NOMED) Diagnosis active 06/21/2022 Hemangioma of skin and subcutaneous tissue (disorder) 807719796(S NOMED) Diagnosis active 06/21/2022 History of malignant neoplasm of skin (situation) 985660352(S NOMED) Diagnosis active 06/21/2022 Surgical follow-up (finding) 295388345(S NOMED) Diagnosis active 02/14/2022 Basal cell carcinoma of skin of lip (disorder) 226368143(S NOMED) Diagnosis active 02/07/2022 Neoplasm of uncertain behavior of skin (disorder) 50201846(SN OMED) Diagnosis active 12/12/2021 Melanocytic nevus (disorder) 011224901(S NOMED) Diagnosis active 12/12/2021 Benign neoplasm of skin (disorder) 47239259(SN OMED) Diagnosis active 12/12/2021 Benign neoplasm of skin of right lower limb (disorder) 36819404622 13906(SNOME D) Diagnosis active 12/12/2021 Disorder of capillaries (disorder) 45497520(SN OMED) Diagnosis active 12/12/2021 Disorder of pigmentation (disorder) 168753780(S NOMED) Diagnosis active 12/12/2021 Seborrheic keratosis (disorder) 807007585(S NOMED) Diagnosis active 12/12/2021 Hemangioma of skin and subcutaneous tissue (disorder) 692309114(S NOMED) Diagnosis active 12/12/2021 Psoriasis vulgaris (disorder) 260801788(S NOMED) Diagnosis active 11/14/2020 Benign neoplasm of skin (disorder) 28703653(SN OMED) Diagnosis active 11/14/2020 Melanocytic nevus (disorder) 022803582(S NOMED) Diagnosis active 11/14/2020 Seborrheic keratosis (disorder) 482523228(S NOMED) Diagnosis active 11/14/2020 Hemangioma of skin and subcutaneous tissue (disorder) 083557083(S NOMED) Diagnosis active 11/14/2020 Peripheral venous insufficiency (disorder) 16869708(SN OMED) Diagnosis active 11/14/2020 Benign neoplasm of skin of right lower limb (disorder) 88297561154 93901(SNOME D) Diagnosis active 11/14/2020 Disorder of capillaries (disorder) 22983382(SN OMED) Diagnosis active 11/14/2020 Disorder of pigmentation (disorder) 284704701(S NOMED) Diagnosis active 11/14/2020 Disorder of capillaries (disorder) 22511595(SN OMED) Diagnosis active 07/17/2020 Disorder of pigmentation (disorder) 041135284(S NOMED) Diagnosis active 07/17/2020 Other melanin hyperpigmentation L81.4(ICD-1 0) Diagnosis active 11/09/2019 Melanocytic nevi, unspecified D22.9(ICD-1 0) Diagnosis active 11/09/2019 Other seborrheic keratosis L82.1(ICD-1 0) Diagnosis active 11/09/2019 Hemangioma of skin and subcutaneous tissue D18.01(ICD- 10) Diagnosis active 11/09/2019 Other diseases of capillaries I78.8(ICD-1 0) Diagnosis active 11/09/2019 Neoplasm of uncertain behavior of skin D48.5(ICD-1 0) Diagnosis active 11/09/2019 Sebaceous cyst L72.3(ICD-1 0) Diagnosis active 02/24/2018 History of pneumonia (situation) 130632952(S NOMED) Diagnosis active 11/07/2016 Melanocytic nevus of trunk (disorder) 487268264(S NOMED) Diagnosis active 11/07/2016 Melanocytic nevus of lower limb (disorder) 806516443(S NOMED) Diagnosis active 11/09/2015 Benign neoplasm of skin of trunk (disorder) 34547426(SN OMED) Diagnosis active 11/03/2014 History of clinical finding in subject (situation) 329215685(S NOMED) Problem active Malignant neoplasm of breast (disorder) 016986039(S NOMED) Problem active Basal cell carcinoma of skin (disorder) 031050150(S NOMED) Problem active Arthritis (disorder) 1600098(SNO MED) Problem active Results No data Encounters Service provided at [address], [place], [place] [id number]. Office phonenumber is [phone]. Office fax number is [phone]. 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)Dermatofibroma (D23.71)Lentigines (L81.4)Telangiectasia (I78.8)History of Basal Cell Carcinoma (Z85.828)Neoplasm of Uncertain Behavior (D48.5) [place] 12/10/2024 19:15:00 [facility] [id number] Reason For Referral No data Procedures Procedure Date Documentation of current medications (pr ocedure) 12/11/2024 12:00 am [place] Shave biopsy (procedure) 12/10/2024 12:0 0 am [place] Documentation of current medications (pr ocedure) 06/04/2024 12:00 am UTC Shave biopsy (procedure) 06/04/2024 12:0 0 am UTC Tumor destruction (procedure) 12/11/2023 12:00 am UTC Shave biopsy (procedure) 11/21/2023 12:0 0 am [place] Mohs surgery (procedure) 02/07/2022 12:0 0 am UTC Shave biopsy (procedure) 12/12/2021 12:0 0 am [place] Documentation of past medical history (p rocedure) Documentation of past medical history (p rocedure) Documentation of past medical history (p rocedure) Documentation of past medical history (p rocedure) Documentation of past medical history (p rocedure) Documentation of past medical history (p rocedure) Documentation of past medical history (p rocedure) Documentation of past medical history (p rocedure) Documentation of past medical history (p rocedure) Documentation of past medical history (p rocedure) Documentation of past medical history (p rocedure) Appendicitis (disorder) Appendicitis (disorder) Documentation of past medical history (p rocedure) Documentation of past medical history (p rocedure) Appendicitis (disorder) Documentation of past medica l history (procedure) Breast cancer surgery (2014)Tibial plateau fracture (10/2022) Appendicitis (disorder) Appendectomy 2023 Review Of Systems Provider reviewed on Dec 10, 2024.A focused review of systems was performed including Integumentary.No Problems With Healing And No Problems With Scarring (hypertrophic Or Keloid). Assessment 1.Neoplasm of Uncertain BehaviorBiopsy by Shave Method: right clavicular neck; Anticipated Plan (based on presumed biopsy results) - ED&C.2.Clinically Atypical Nevus - Possibly traumatized nevus now with scarCounselingObservation: left anterior lateral distal thigh; Size of Lesion - 4x4mm.3.Melanocytic NeviCounseling4.AngiofibromaCounseling5.DermatofibromaCounseling6.LentiginesCoun seling7.TelangiectasiaCounseling8.History of Basal Cell CarcinomaCounseling Plan of Care Future visit for 05/27/2025 - Follow up in 6 months for: Skin Check Code Detail Instructions 065286 clobetasol 0.05 % scalp solution Apply 1-2 times to affected areas daily 977305 fluocinonide 0.05 % topical solu tion Apply 1-2 times daily to flaky red areas on scalp as needed. Instructions * I counseled the patient regarding the following:Reviewed the importance of regular self skin exams to monitor for any changes in mole size, shape or color. Advise monitoring of previously treated sites as well for evidence of recurrence.I recommended the following: Broad Spectrum Sunscreen SPF 30+ - Sun protective measures reviewed in detailSelf-Skin Exams * I counseled the patient regarding the following:Advise self-skin checks every 1-2 months to monitorfor any changes in moles.Photoprotection reviewed in detail and encouraged. Reviewed signs/symptomsof skin cancer.Contact office if any moles change in size, shape or color, or become symptomatic including itching, burning, bleeding.I recommended the following: Broad Spectrum Sunscreen SPF 30+ - Appropriate use of sunscreen and sun protective measures reviewed.Self-Skin Exams * I counseled the patient regarding the following:Angiofibromas are benign fibrous papules commonly found on the nose (fibrous papule) or penis (pearly penile papule). No treatment is necessary. * I counseled the patient regarding the following:Dermatofibromas are banal. No treatment is requiredif asymptomatic. If growing or symptomatic, dermatofibromas can be surgically removed. * I counseled the patient regarding the following:Photoprotection should be used to prevent development of further lentigines. Photoprotection was reviewed in detail and encouraged.I recommended the following: Broad Spectrum Sunscreen SPF 30+ * I counseled the patient regarding the following:She is s/p laser treatment for telangiectasia with recurrence. Advise she monitor for any concerning skin changes in radiation field and contact officeif such occurs. * I counseled the patient regarding the following:Skin Care: Patients with a history of non-melanoma skin cancer should wear broad spectrum sunscreen and sun protective clothing.Expectations: Sites of treated skin cancers should be regularly monitored for any evidence of recurrence.Contact Office: Ifa treated site of prior skin cancer develops a new bump lesion, sore, discoloration, or other concerning change.I recommended the following: Broad Spectrum Sunscreen SPF 30+ Social History Code Activity Start Date End Date [id number] (SNOMED) Never smoker Sex female Sexual orientation Unspecified Gender identity Unspecified Vital Signs No data
== END 2024-12-15 15:35 | disposition home or self-care (01) ==
LOC: HO.HMGAL 15:16
PROVIDERS: PCP Internal Medicine; Visit Provider Registered Nurse Emergency
DX: J30.89 Other allergic rhinitis (principal)
CPT/HCPCS: 95117; 95165

== ENCOUNTER 2025-01-05 12:36 | Outpatient (AMB) | payer BC, SELFPAY | END 2025-01-05 12:37 | disposition home or self-care (01) | LOC: HO.HMGAL 12:36 | PROVIDERS: PCP Internal Medicine; Visit Provider Registered Nurse Emergency | DX: J30.89 Other allergic rhinitis (principal) | CPT/HCPCS: 95117; 95165 ==

== ENCOUNTER 2025-01-26 13:09 | Outpatient (AMB) | payer BC, SELFPAY ==
--- OUTSIDE RECORDS SUMMARY | 2023-08-14 07:00 | XMS_ITS ---
Author Organization [facility] Address [address] [place] [phone] Care Team Providers Care Director Of Respiratory Therapy Name Role Phone Capri Souza MD Primary Care Provider Jalen Richards [phone] REASON FOR VISIT recall colonoscopy Encounters Encounter Location Date Provider Diagnosis [facility] [address] [place] [phone] 08/14/2023 Jalen Crabtree Plan Of Treatment No Information Progress Notes * MIGUEL BONILLA EDOB:[birth year] (60 yo F)Acc No.[id number]:08/14/2023 Progress Notes Patient: MIGUEL CHANEY Provider: Guilherme Crabtree MD :1965 A ge:58 Y S ex:Female Date:08/14/2023 Address:[address] [place], [place] [id number] Pcp:Capri Souza MD Subjective: * Chief Complaints: [...] 0 08/14/2023 Generated for Fantasmai rc/Antonino/eTransmitting on: 04:44 PM EDT
--- OUTSIDE RECORDS SUMMARY | 2025-01-26 16:45 | XMS_ITS | Clinical Summary ---
Author Organization [facility] Address [address] [address] Phone Care Team Providers Care Net Wpf Developer Name Role Phone Quinton Chisholm Unavailable Po, Capri Grimaldo MD Unavailable [phone] Soheila Shaikh MD Unavailable [phone] Po, Capri Grimaldo MD Primary Care Provider [phone] Allergies Active Allergy Reactions Criticality Noted Date [...] Type Department Care Team Description 12/14/2024 Telephone [facility] [address] [place] [address] Noy Mota from Last 3 Months Family [...] PM EST Office Visit [facility] [address] [place] [address] Calli Phelan MD [address] [place] [address] [email or web address] Health Maintenance Due Date Last Done Comments LIPID PANEL 1965 DEPRESSION SCREENING 1977 HEPATITIS C SCREENING 1983 HIV ONE-TIME SCREENING (18-65 YEARS) 1983 PAP SMEAR 1986 SCREENING FOR DIABETES 01/13/2000 MAMMOGRAM 2005 COLOGUARD 2010 COLONOSCOPY 2010 COLORECTAL CANCER SCREENING 2010 FIT TEST 2010 FOBT 2010 SIGMOIDOSCOPY 2010 VIRTUAL COLONOSCOPY 2010 ZOSTER VACCINES (1 of 2) 2015 INFLUENZA VACCINE (#1) 2024 , 01/19/2021, 12/23/2019, Additional history exists COVID-19 VACCINE (2024- season) 2024 02/27/2022, 10/25/2021, 02/23/2021, Additional history exists Adult Td,Tdap Booster 05/15/2027 05/15/2017 RSV VACCINE (1 - 1-dose 75+ series) 01/13/2040 PNEUMOCOCCAL VACCINES (50+ years) Completed 06/15/2015, 02/24/2015, [...] topic Medical Devices Not on file Insurance [facility] [address] [facility] [place] [address] [facility] Care Teams Net Wpf Developer Relationship Specialty Start Date End Date Capri Souza MD [address] [place] [phone] PCP - General Internal Medicine 06/05/22 Quinton Chisholm DO [email or web address] Historical LMR Provider 01/18/17 Capri Souza MD [address] [place] [address] [phone] Historical LMR Provider 01/18/17 Soheila Shaikh MD [address] [place] [address] Historical LMR Provider 01/18/17 Additional Source Comments The information contained in this document represents components of the legal health record. It is not the complete legal health record.[facility]
--- OUTSIDE RECORDS SUMMARY | 2025-01-26 16:45 | XMS_ITS | Encounter Summary ---
Author Organization [facility] Address [address] [facility] [address] [place] [address] Phone Care Team Providers Care Elevator Adjuster Name Role Phone Quinton Chisholm Unavailable PoCapri MD Unavailable [phone] Soheila Shaikh MD Unavailable [phone] Capri Souza MD Primary Care Provider [phone] Encounter Details Date Type Department Care Team (Late st Contact Info) Description 12/14/2024 Telephone [facility] [address] [place], [place] [phone] [email or web address] Social History Tobacco Use Types Packs/Day Years [...] Visit [facility] [address] [place] [address] Calli Phelan MD [address] [address] [email or web address] documented as of this encounter Visit Diagnoses Not on filedocumented in this encounter Care Teams Elevator Adjuster Relationship Specialty Start Date End Date Capri Souza MD [address] [place] [phone] PCP - General Internal Medicine 06/05/22 Quinton Chisholm DO [email or web address] Historical LMR Provider 01/18/17 Capri Souza MD [address] [place] [phone] Historical LMR Provider 01/18/17 Soheila Shaikh MD [address] [place] [address] Historical LMR Provider 01/18/17 documented as of this encounter Additional Source Comments The information contained in this document represents components of the legal health record. It is not the complete legal health record.[facility]
--- OUTSIDE RECORDS SUMMARY | 2025-01-26 16:45 | XMS_ITS | Patient Health Record ---
Author Organization [facility] Address [address] [place] [phone] Care Team Providers Care Cell Attendant Helper Name Role Phone Po Capri SANCHEZ Primary Care Provider Jalen Richards [phone] Allergies No Known Allergies Reason For Referral No Information Medications Medication SIG (Take, Route, Frequency, Duration) Notes Start Date End Date Status CeleBREX 200 MG 1 capsule with food Orally Once a day; Duration: 30 day(s) Active Claritin 10 MG 1 tablet Orally Once a day; Duration: 30 day(s) Active Womens Multivitamin - as directed Orally Active Calcium 1 tab Oral; Duration : 14 days Active Vitamin D3 50 MCG (1999) 1 capsule Or ally Once a day Active Letrozole 2.5 MG Oral; Duration: 90 Active Social History Tobacco Use: Social History Observation [...] Problem Status W/U Status Risk Notes Problem Screening for malignant neoplasm of colon (947744535) Encounter for screening for malignant neoplasm of colon (Z12.11) Active confirmed Problem History of adenomatous polyp of colon (836947150) History of adenomatous polyp of colon (Z86.010) Active confirmed Problem Diverticular disease of colon (646559890) Diverticulosis of large intestine without perforation or abscess without bleeding (K57.30) Active confirmed Problem Preprocedural examination (913411282647802) Preprocedural examination (Z01.818) Active confirmed Problem Pre-procedure evaluation check (151950346) Pre-procedural examination (Z01.818) Active confirmed Plan Of Treatment Future Test Test Name Order Date COLONOSCOPY 12/18/2017 COLONOSCOPY 04/29/2023 Insurance Providers Payer Name Payer Address Payer Phone Subscriber Number Group Number Insured Name Patient Relationship to Insured Coverage Start Date Coverage End Date [facility] [address] [place] [address] [id number] MIGUEL BONILLA Self - patient is the insured Medical (General) History Medical History History ICD Code Denies SD,DM,CVA,Lung disease,renal dise ase Colonoscopy [address] [...] margins 2014-06/2015 Left thyroidectomy-benign 2004 Tibial plateau hpksocus-qdvn-Aq. Epstein 2022
== END 2025-01-26 13:09 | disposition home or self-care (01) ==
LOC: HO.HMGAL 13:09
PROVIDERS: PCP Internal Medicine; Visit Provider Registered Nurse Emergency
DX: J30.89 Other allergic rhinitis (principal)
CPT/HCPCS: 95117; 95165

== ENCOUNTER 2025-02-16 13:04 | Outpatient (AMB) | payer BC, SELFPAY ==
--- OUTSIDE RECORDS SUMMARY | 2025-02-12 23:59 | XMS_ITS | Continuity of Care Document ---
Author Organization [facility] Address [address] [place] [address]- Care Team Providers Care Peanut Butter Maker Name Role Phone Po Capri SANCHEZ Primary Care Physician [place] [facility] [place]): [place] 02/12/25 [facility] [address] [place] [id number] Encounter Type: Triage Allergies, Adverse Reactions, Alerts Substance Criticality Severity Reaction Reaction Severity Status Milk Products diarrhea Active Immunizations Given and Recorded Vaccine Date Status Refusal Reason influenza virus vaccine, inactivated 12/21/21 Refugio rded influenza virus vaccine, inactivated 01/19/21 Refugio rded influenza virus vaccine, inactivated 12/23/19 Refugio rded influenza virus vaccine, inactivated 1 12/24/18 Gi robbin influenza virus vaccine, inactivated 02/02/17 Refugio rded SARS-CoV-2 mRNA ([id number]-kigey) vax 10/25/21 Recorded SARS-CoV-2 (COVID-19) mRNA BNT-162b2 [...] VIS Published 11/12/2018 2Location History: PCP Medications Calcium 600 +D By Mouth, 0 Refills, Maintenance, 03/29/24 3:01:00 PM EST, Partial fill upon patient request if theprescription is for a schedule II opioid drug. Start Date: 03/29/24 Status: Ordered Medication Dispense Status: Completed Total Allowed Fills: 1 Fills Dispensed: 0 celecoxib 200 mg oral capsule 1 capsule = 200 mg, By Mouth, 2 times a day, 0 Refills, Maintenance, 04/17/23 9:08:00 AM EST, Capsule, Partial fill upon patient request if the prescription is for a schedule II opioid drug. Start Date: 04/17/23 Status: Ordered Medication Dispense Status: Completed Total Allowed Fills: 1 Fills Dispensed: 0 Claritin 10 mg oral tablet 10 mg, 1, tablet, By Mouth, Daily, Refills 0, Maintenance, 12/24/18 8:38:12 AM EDT Start Date: 12/24/18 Status: Ordered Medication Dispense Status: Completed Total Allowed Fills: 1 Fills Dispensed: 0 docusate sodium 0 Refills, Maintenance, 12/12/22 1:32:00 PM EDT, Partial fill upon patient request if the prescription is for a schedule II opioid drug. Start Date: 12/12/22 Status: Ordered Medication Dispense Status: Completed Total Allowed Fills: 1 Fills Dispensed: 0 Ibuprofen 400 mg, Daily, Refills 0, Maintenance, 03/29/24 3:01:00 PM EST, Partial fill upon patient request if the prescription is for a schedule II opioid drug. Start Date: 03/29/24 Status: Ordered Medication Dispense Status: Completed Total Allowed Fills: 1 Fills Dispensed: 0 letrozole 2.5 mg oral tablet 1 tablet, By Mouth, Daily, # 90 tablet, 3 Refills, Maintenance, 12/13/24 3:08:00 PM EDT, [facility], 159.9, cm, 10/25/24 14:14:00 EDT, Height, 79.9, kg, 07/15/24 14:21:00 EDT, Dry Weight Start Date: 12/13/24 Status: Ordered Medication Dispense Status: Completed Quantity: 90.0 Unit: tablet Total Allowed Fills: 4 Fills Dispensed: 0 Metamucil Rodriguez Burst Smooth Texture 3.4 g/5.8 g oral powder for reconstitution By Mouth, 3 times a day, PRN as needed for constipation, dissolve in 8 oz of fluid, # 30 pack/packet, 0 Refills, Maintenance, 01/13/25 1:43:00 PM EDT, REC Powder, Partial fill upon patient request ifthe prescription is for a schedule II opioid drug. Start Date: 01/13/25 Status: Ordered Medication Dispense Status: Completed Quantity: 30.0 Unit: pack/packet Total Allowed Fills: 1 Fills Dispensed: 0 Multivitamin Daily, 0 Refills, Maintenance, 02/19/22 8:17:00 AM EST, Partial fill upon patient request if the prescription is for a schedule II opioid drug. Start Date: 02/19/22 Status: Ordered Medication Dispense Status: Completed Total Allowed Fills: 1 Fills Dispensed: 0 One cranial prosthesis. One cranial prosthesis., See Instructions, # 1 each, Refills 0, Tot. 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 Start Date: 04/18/23 Status: Ordered Medication Dispense Status: Completed Total Allowed Fills: 1 Fills Dispensed: 0 Problem List Condition Confirmation Course Effective Dates Status H ealth Status Informant ASCUS of cervix with negative high risk HPV Confirmed Active Carcinoma of lower outer quadrant of left breast Confirmed Active Closed fracture of tibial plateau Confirmed 11/13/22 Active Diverticular disease of colon Confirmed Active Blood pressure elevated without history of HTN Confirmed Active History of adenomatous polyp of colon Confirmed Active HTN (hypertension) Confirmed Active Abdominal discomfort in left lower quadrant Confirmed Active Axillary mass 1 Confirmed Active 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 Confirmed Active Multinodular goiter Confirmed Active Obese class I Confirmed Active Osteopenia Confirmed Active Malignant neoplasm of overlapping sites of left breast in female, estrogen receptor positive Confirmed Active Primary breast cancer with metastasis to movable ipsilateral level 1 or 2 axillary lymph nodes (N1) Confirmed Active Raynauds syndrome Confirmed Active Subclinical hypothyroidism Confirmed Active Vaginal dryness Confirmed Active 1Left axilla Patient Care team information Care Team Personnel Name: Suni Castillo Position: S Onco RN Member Role: Primary Care Nurse Name: Tran Hyde MA Position: S Onco RN Member Role: Primary Care Nurse Name: Tracey Lujan RN Position: [facility] Onco RN Member Role: Primary Care Nurse Name: Jazzy Alexander RN Position: [facility] Onco RN Member Role: Primary Care Nurse Name: Capri Souza MD Position: Reference Physician Member Role: PCP Address: [address] [place] [address] Telecom: Care Team Related Persons Name: LEEANN YUNG Name: SALAS JIM Insurance Providers Guarantor name: [facility] Plan Information #: 1 Payer: [facility] Payer Identifier: NA Member Number: [id number] Group Number: [id number] Subscriber Identifier: ROBERT Relationship to Subscriber: spouse Coverage Type: NA Coverage Verification Date: NA Telecom: NA Address:
--- OUTSIDE RECORDS SUMMARY | 2025-02-17 00:56 | XMS_ITS | Encounter Summary ---
Author Organization [facility] Address [address] [facility] [address] [place] [address] Phone Care Team Providers Care Countersinker Balance Screw Hole Name Role Phone Quinton Chisholm Unavailable PoCapri MD Unavailable Soheila Shaikh MD Unavailable [phone] Capri Souza MD Primary Care Provider [phone] Encounter Details Date Type Department Care Team (Late st Contact Info) Description 12/14/2024 Telephone [facility] [place], [place] [address] [place], [place] [id number] [email or web address] Social History Tobacco Use Types Packs/Day Years [...] Visit [facility] [address] [place] [address] Calli Phelan MD [address] [address] [email or web address] documented as of this encounter Visit Diagnoses Not on filedocumented in this encounter Care Teams Countersinker Balance Screw Hole Relationship Specialty Start Date End Date Capri Souza MD [address] [place] [phone] PCP - General Internal Medicine 06/05/22 Quinton Chisholm DO [email or web address] Historical LMR Provider 01/18/17 Capri Souza MD [address] [place] [phone] Historical LMR Provider 01/18/17 Soheila Shaikh MD [address] [place] [address] Historical LMR Provider 01/18/17 documented as of this encounter Additional Source Comments The information contained in this document represents components of the legal health record. It is not the complete legal health record.[facility]
--- OUTSIDE RECORDS SUMMARY | 2025-02-17 00:56 | XMS_ITS | Patient Health Record ---
Author Organization [facility] Address [address] [place] [phone] Care Team Providers Care Data Collection Interviewer Name Role Phone Po Capri SANCHEZ Primary Care Provider Jalen Richards [phone] Allergies No Known Allergies Reason For Referral No Information Medications Medication SIG (Take, Route, Frequency, Duration) Notes Start Date End Date Status CeleBREX 200 MG Capsule 1 capsule with f ood Orally Once a day; Duration: 30 day(s) Active Claritin 10 MG Tablet 1 tablet Orally On ce a day; Duration: 30 day(s) Active Womens Multivitamin - Tablet as directed Orally Active Calcium 1 tab Oral; Duration : 14 days Active Vitamin D3 50 MCG (1999) Capsule 1 capsule Orally Once a day Active Letrozole 2.5 MG Tablet Oral; Duration: 90 Active Social History Tobacco Use: Social History Observation Description Date Details (start date - stop date) Never Smoker NA - NA Social History Drugs/Alcohol: Social Info Question Answer Notes Alcohol Screen Did you have a drink containing alcohol in the past year? Yes How often did you have a drink containing alcohol in the past year? 2 to 4 times a month (2 points) How many drinks did you have on a typical day when you were drinking in the past year? 1 or 2 drinks (0 point) How often did you have 6 or more drinks on one occasion in the past year? Never (0 point) Points 2 Interpretation Negative Tobacco Use: Social Info Question Answer Notes Tobacco Use/Smoking Patient is a nonsmoker Additional Details Category Social Info Options Details Miscellaneous: Marital status: Occupation: [employer]/ retired Section Notes: Nonsmoker; occ. alcohol Nonsmoker; occ. alcohol Problems Problem Type SNOMED Code ICD Code Onset Dates Problem Status W/U Status Risk Notes Problem Screening for malignant neoplasm of colon (087836215) Encounter for screening for malignant neoplasm of colon (Z12.11) Active confirmed Problem History of adenomatous polyp of colon (314979611) History of adenomatous polyp of colon (Z86.010) Active confirmed Problem Diverticular disease of colon (296441041) Diverticulosis of large intestine without perforation or abscess without bleeding (K57.30) Active confirmed Problem Preprocedural examination (925476882108909) Preprocedural examination (Z01.818) Active confirmed Problem Pre-procedure evaluation check (042409778) Pre-procedural examination (Z01.818) Active confirmed Plan Of Treatment Future Test Test Name Order Date COLONOSCOPY 12/18/2017 COLONOSCOPY 04/29/2023 Insurance Providers Payer Name Payer Address Payer Phone Subscriber Number Group Number Insured Name Patient Relationship to Insured Coverage Start Date Coverage End Date [facility] [address] [address] [place] [address] [id number] MIGUEL BONILLA Self - patient is the insured Medical (General) History Medical History History ICD Code Denies CO,DM,CVA,Lung disease,renal dise ase Colonoscopy [address] [...] margins 2014-06/2015 Left thyroidectomy-benign 2004 Tibial plateau [id number]. Epstein 2022
--- OUTSIDE RECORDS SUMMARY | 2025-02-17 00:56 | XMS_ITS | Clinical Summary ---
Author Organization [facility] Address [address] [address] Phone Care Team Providers Care It Support Specialist Name Role Phone Quinton Chisholm Unavailable Po, Capri Grimaldo MD Unavailable [phone] Soheila Shaikh MD Unavailable [phone] Po, Capri Grimaldo MD Primary Care Provider Allergies Active Allergy Reactions Criticality Noted Date [...] Type Department Care Team Description 12/14/2024 Telephone [facility] [address] [place] [address] Noy Mota from Last 3 Months Family [...] [facility] [address] [place] [address] Calli Phelan MD [address] [place] [address] [email or web address] Health Maintenance Due Date Last Done Comments [...] topic Medical Devices Not on file Insurance [facility] [place] [address] [facility] [place] [address] [facility] Care Teams It Support Specialist Relationship Specialty Start Date End Date Capri Souza MD [address] [place] [phone] PCP - General Internal Medicine 06/05/22 Quinton Chisholm DO [email or web address] Historical LMR Provider 01/18/17 Capri Souza MD [address] [place] [phone] Historical LMR Provider 01/18/17 Soheila Shaikh MD [address] [place] [address] Historical LMR Provider 01/18/17 Additional Source Comments The information contained in this document represents components of the legal health record. It is not the complete legal health record.[facility]
== END 2025-02-16 13:05 | disposition home or self-care (01) ==
LOC: HO.HMGAL 13:04
PROVIDERS: PCP Internal Medicine; Visit Provider Registered Nurse Emergency
DX: J30.89 Other allergic rhinitis (principal)
CPT/HCPCS: 95117; 95165

== ENCOUNTER 2025-02-18 08:44 | Emergency (ER) | payer BC, SELFPAY ==
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
[2025-02-18 08:49] VITALS: BP 194/90; PULSE 110; O2SAT 99
[2025-02-18 09:03] VITALS: BP 170/85; PULSE 108; RESP 17; TEMP 36.8; O2SAT 100; BMI 29.0
[2025-02-18 09:06] VITALS: BP 170/85; PULSE 108; RESP 17; TEMP 36.8; O2SAT 100
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
--- OUTSIDE RECORDS SUMMARY | 2025-02-18 09:48 | XMS_ITS | Clinical Summary ---
Author Organization [facility] Address [address] [facility] [address] [place] [phone] Phone Care Team Providers Care Funeral Greeter Name Role Phone Quinton Chisholm Unavailable Po, Capri Grimaldo MD Unavailable [phone] Soheila Shaikh MD Unavailable [phone] Po, Capri Grimaldo MD Primary Care Provider [phone] Allergies Active Allergy Reactions Criticality Noted Date [...] Type Department Care Team Description 12/14/2024 Telephone [employer] [facility] [address] [place] [address] Noy Mota from Last 3 Months Family [...] [facility] [address] [place] [address] Calli Phelan MD [address] [place] [phone] [email or web address] Health Maintenance Due Date Last Done Comments [...] topic Medical Devices Not on file Insurance [facility] [address] [facility] [place] [address] [facility] Care Teams Funeral Greeter Relationship Specialty Start Date End Date Capri Souza MD [address] [place] [phone] PCP - General Internal Medicine 06/05/22 Quinton Chisholm DO [email or web address] Historical LMR Provider 01/18/17 Capri Souza MD [address] [place] [phone] Historical LMR Provider 01/18/17 Soheila Shaikh MD [address] [place] [address] Historical LMR Provider 01/18/17 Additional Source Comments The information contained in this document represents components of the legal health record. It is not the complete legal health record.[facility]
--- OUTSIDE RECORDS SUMMARY | 2025-02-18 09:48 | XMS_ITS | Patient Health Record ---
Author Organization [facility] Address [address] [place] [phone] Care Team Providers Care Chief Data Officer Name Role Phone Po Capri SANCHEZ Primary Care Provider Jalen Richards [phone] Allergies No Known Allergies Reason For Referral [...] Problem Screening for malignant neoplasm of colon (696255697) Encounter for screening for malignant neoplasm of colon (Z12.11) Active confirmed Problem History of adenomatous polyp of colon (887154040) History of adenomatous polyp of colon (Z86.010) Active confirmed Problem Diverticular disease of colon (658462303) Diverticulosis of large intestine without perforation or abscess without bleeding (K57.30) Active confirmed Problem Preprocedural examination (579383129796689) Preprocedural examination (Z01.818) Active confirmed Problem Pre-procedure evaluation check (625936371) Pre-procedural examination (Z01.818) Active confirmed Plan Of Treatment Future Test Test Name Order Date COLONOSCOPY 12/18/2017 COLONOSCOPY 04/29/2023 Insurance Providers Payer Name Payer Address Payer Phone Subscriber Number Group Number Insured Name Patient Relationship to Insured Coverage Start Date Coverage End Date [facility] [address] [address] [place] [address] [id number] MIGUEL BONILLA Self - patient is the insured Medical (General) History Medical History History ICD Code Denies [place],DM,CVA,Lung disease,renal dise ase Colonoscopy [address] [...] margins 2014-06/2015 Left thyroidectomy-benign 2004 Tibial plateau [id number]. Epstein 2022
--- OUTSIDE RECORDS SUMMARY | 2025-02-18 09:48 | XMS_ITS | Encounter Summary ---
Author Organization [facility] Address [address] [place] [phone] Phone Care Team Providers Care Concrete Panel Installer Name Role Phone Quinton Chisholm Unavailable PoCapri MD Unavailable [phone] Soheila Shaikh MD Unavailable [phone] Capri Souza MD Primary Care Provider [phone] Encounter Details Date Type Department Care Team (Late st Contact Info) Description 12/14/2024 Telephone Isabel [facility] [address] [place], [place] [id number] [email or web address] Social History Tobacco Use Types [...] Visit [facility] [address] [place] [address] Calli Phelan MD [address] [address] [email or web address] documented as of this encounter Visit Diagnoses Not on filedocumented in this encounter Care Teams Concrete Panel Installer Relationship Specialty Start Date End Date Capri Souza MD [address] [place] [phone] PCP - General Internal Medicine 06/05/22 Quinton Chisholm DO [email or web address] Historical LMR Provider 01/18/17 Capri Souza MD [address] [place] [phone] Historical LMR Provider 01/18/17 Soheila Shaikh MD [address] [place] [address] Historical LMR Provider 01/18/17 documented as of this encounter Additional Source Comments The information contained in this document represents components of the legal health record. It is not the complete legal health record.[facility]
[2025-02-18 10:00] VITALS: BP 158/76; PULSE 72; RESP 22; O2SAT 97
[2025-02-18 11:29] VITALS: BP 158/76; PULSE 72; RESP 22; TEMP -17.7; TEMP 0; O2SAT 97
== END 2025-02-18 11:29 | disposition home or self-care (01) ==
PROVIDERS: Emergency Provider Emergency Medicine; PCP Internal Medicine
DX: S13.4XXA Sprain of ligaments of cervical spine, initial encounter (principal); R07.89 Other chest pain; R51.9 Headache, unspecified; V43.52XA Car driver injured in collision with other type car in traffic accident, initial encounter; Y93.9 Activity, unspecified; Y92.89 Other specified places as the place of occurrence of the external cause; Y99.8 Other external cause status
CPT/HCPCS: 70450; 71045; 72125; 99284

== ENCOUNTER → 2025-02-18 09:18 | Outpatient (BNV) | payer BC, SELFPAY | PROVIDERS: Emergency Provider Emergency Medicine; PCP Internal Medicine; Visit Provider Radiology Diagnostic Radiology | DX: M47.812 Spondylosis without myelopathy or radiculopathy, cervical region (principal); Z04.3 Encounter for examination and observation following other accident | CPT/HCPCS: 71045; 72125 ==

== ENCOUNTER 2025-03-16 13:14 | Outpatient (AMB) | payer BC, SELFPAY ==
--- OUTSIDE RECORDS SUMMARY | 2025-03-16 17:24 | XMS_ITS | Patient Health Record ---
Author Organization [facility] Address [address] [place] [phone] Care Team Providers Care Protective Signal Installer Helper Name Role Phone Po Capri SANCHEZ Primary Care Provider Jalen Richards [phone] Allergies No Known Allergies Reason For Referral [...] Problem Screening for malignant neoplasm of colon (441127481) Encounter for screening for malignant neoplasm of colon (Z12.11) Active confirmed Problem History of adenomatous polyp of colon (685629849) History of adenomatous polyp of colon (Z86.010) Active confirmed Problem Diverticular disease of colon (388020121) Diverticulosis of large intestine without perforation or abscess without bleeding (K57.30) Active confirmed Problem Preprocedural examination (685355691916110) Preprocedural examination (Z01.818) Active confirmed Problem Pre-procedure evaluation check (174891917) Pre-procedural examination (Z01.818) Active confirmed Plan Of Treatment Future Test Test Name Order Date COLONOSCOPY 12/18/2017 COLONOSCOPY 04/29/2023 Insurance Providers Payer Name Payer Address Payer Phone Subscriber Number Group Number Insured Name Patient Relationship to Insured Coverage Start Date Coverage End Date [facility] [address] [address] [place] [address] [id number] MIGUEL BONILLA Self - patient is the insured Medical (General) History Medical History History ICD Code Denies [place],DM,CVA,Lung disease,renal dise ase Colonoscopy [address] [...] margins 2014-06/2015 Left thyroidectomy-benign 2004 Tibial plateau [id number]. Epstein 2022
== END 2025-03-16 13:14 | disposition home or self-care (01) ==
LOC: HO.HMGAL 13:14
PROVIDERS: PCP Internal Medicine; Visit Provider Registered Nurse Emergency
DX: J30.89 Other allergic rhinitis (principal)
CPT/HCPCS: 95117; 95165